=== PATIENT | male | born 1970 | race Caucasian/White ===

== ENCOUNTER 2018-03-07 10:28 | Observation (INO) ==
[2018-03-07] MEDS ORDERED: SALINE FLUSH 10ml SYRINGE IVF PRN (10:51)
--- NOTE | 2018-03-07 10:53 | Emergency Department Report ---
General Adult HPI - General Chief complaint: Shortness of Breath/Dyspnea Stated complaint: soa chest pain Time Seen by Provider: 03/07/18 10:51 Source: patient, other (continuous pillowcase cutter) Mode of arrival: ambulatory - History of Present Illness HPI narrative: Patient is a 47-year-old male presents emergency primary for evaluation of chest pain. Patient very poor historian history of schizophrenia, is here with his per review continuous pillowcase cutter. Patient's had anterior left-sided chest pain/ pressure with associated diaphoresis no nausea no vomiting since Sunday. Patient has had an intermittent episode of spasms of his chest wall, has seen his primary care doctors at his last week, was given muscle relaxants. Patient complaining today to his continuous pillowcase cutter of the chest pain so patient was brought to the ER for evaluation. - Related Data Home Medications Medication Instructions Recorded Confirmed Baclofen [Lioresal] 10 mg PO BID PRN 03/07/18 03/07/18 Benztropine [Cogentin] 1 mg PO DAILY 03/07/18 03/07/18 Metoprolol Succinate (XL) [Toprol 50 mg PO DAILY 03/07/18 03/07/18 Xl] Omeprazole [Prilosec] 20 mg PO BID 03/07/18 03/07/18 risperiDONE [Risperidone] 1 mg PO BID 03/07/18 03/07/18 Previous Rx's Medication Instructions Recorded Amlodipine Besylate [Norvasc] 5 mg PO DAILY 30 Days #30 tab 01/04/17 Allergies Allergy/AdvReac Type Severity Reaction Status Date / Time No Known Drug Allergies Allergy Unknown Verified 03/07/18 10:58 Review of Systems Review of Systems: Patient's schizophrenic, very poor historian Constitutional: Denies: fever, chills, weakness Eyes: Denies: eye pain ENT: Denies: throat pain Cardiovascular: Reports: chest pain, palpitations. Denies: dyspnea on exertion Respiratory: Denies: cough, dyspnea, wheezes Gastrointestinal: Denies: abdominal pain, nausea, vomiting Neurological: Denies: headache Psychiatric: Denies: anxiety Endocrine: Denies: fatigue Hematological/Lymphatic: Denies: easy bleeding PFSH Patient Stated Medical History Schizophrenia Yes - Social History Smoking status: Never smoker Substance use type: does not use Alcohol intake frequency: does not drink Physical Exam - General General appearance: alert, in no apparent distress - Eye Eye exam: Present: PERRL - ENT ENT exam: Present: normal oropharynx, TM's normal bilaterally - Neck Neck exam: Present: full ROM, trachea midline. Absent: tenderness - Chest Chest inspection: Present: normal inspection. Absent: symmetric chest wall rise , tenderness, rash - Respiratory Respiratory exam: Present: normal lung sounds bilaterally. Absent: respiratory distress, wheezes, stridor - Cardiovascular Cardiovascular exam: Present: regular rate, normal rhythm, normal heart sounds - Abdominal Exam Abdominal exam: Present: soft, normal bowel sounds. Absent: distention, tenderness - Skin Skin exam: Present: warm, dry - Neurological Exam Neurological exam: Present: alert, oriented X3 - Psychiatric Psychiatric exam: Present: normal affect, normal mood Course Vital Signs Temperature 98.6 F 03/07/18 10:30 Pulse Rate 92 03/07/18 10:30 Respiratory Rate 32 H 03/07/18 10:30 Blood Pressure 138/76 03/07/18 10:30 Pulse Oximetry 95 03/07/18 10:30 Temperature 98.5 F 03/07/18 13:03 Pulse Rate 82 03/07/18 13:03 Respiratory Rate 16 03/07/18 13:03 Blood Pressure 123/67 03/07/18 13:03 Pulse Oximetry 96 03/07/18 13:38 Medical Decision Making - Medical Records Medical records reviewed: Yes: I reviewed the patient's medical records. - Lab Data Lab results reviewed: Yes: I reviewed the patient's lab results. Result diagrams: 03/07/18 11:04 03/07/18 11:04 Lab Results 03/07/18 03/07/18 03/07/18 Range/Units 11:04 11:04 11:04 WBC 7.0 (4.5-11.0) T/MM3 RBC 4.28 L (4.50-5.90) M/MM3 Hgb 13.2 L (13.5-17.5) GM/DL Hct 39.4 L (41-53) % MCV 92.1 (80-100) UM3 MCH 30.8 (26-34) UUG MCHC 33.5 (31-37) GM/DL RDW Std Deviation 43.9 (36.9-50.2) FL Plt Count 121 L (130-400) T/MM3 MPV 9.9 (9.4-12.4) UM3 Immature Gran % (Auto) 0.3 (0.0-0.5) % Neut % (Auto) 74.0 H (33-66) % Lymph % (Auto) 14.7 L (23-45) % [place] % (Auto) 8.5 (0-9.0) % Eos % (Auto) 2.2 (0-4) % Baso % (Auto) 0.3 (0-2) % Neut # (Auto) 5.2 (1.8-7.7) T/MM3 Lymph # (Auto) 1.0 (1-4.8) T/MM3 [place] # (Auto) 0.6 (0-0.8) T/MM3 Eos # (Auto) 0.2 (0-0.5) T/MM3 Baso # (Auto) 0.0 (0-0.2) T/MM3 Abs Immat Gran (auto) 0.02 (0.00-0.03) T/MM3 D-Dimer 3595 H (0-230) NG/ML Turbidity < 20 (0-20) Sodium 144 (134-144) MEQ/L Potassium 3.5 L (3.6-5) MEQ/L Chloride 107 (98-107) MEQ/L Carbon Dioxide 25 (22-30) MEQ/L Anion Gap 12 (5-15) meq/L BUN 7.0 L (9-20) MG/DL Creatinine 0.8 (0.8-1.5) mg/dL GFR Calculation 105 BUN/Creatinine Ratio 9 (6-26) RATIO Glucose 170 H (75-110) MG/DL Calculated Osmolality 279 (261-280) MOSM/KG Calcium 8.6 (8.4-10.2) MG/DL Total Bilirubin 1.00 (0.20-1.30) MG/DL Icterus Index < 2 (0-7) AST 29 (17-59) U/L ALT 32 (1-50) U/L Alkaline Phosphatase 63 (38-126) U/L Troponin I < 0.012 (0-0.12) ng/ml NT-Pro-B Natriuret Pep 152 (0-175) pg/mL Total Protein 7.2 (6.3-8.2) g/dL Albumin 4.1 (3.5-5.0) g/dL Globulin 3.1 (2.4-3.6) G/DL Albumin/Globulin Ratio 1.3 (1.1-2.2) RATIO Specimen Hemolysis < 15 (0-25) - Radiology Data Radiology results reviewed: Yes: I reviewed the patient's radiology results. Chest x-ray: No acute cardiopulmonary findings CTA chest: Multiple bilateral pulmonary embolus - EKG Data EKG #1 EKG attestation: Yes: I reviewed and interpreted this EKG. EKG shows normal: sinus rhythm Rate: normal Rhythm: NSR [place]/QRS: normal Interpretation: no acute changes Disposition Clinical Impression: Multiple Pulmonary Emboli Disposition: 02 To [facility] Condition: Stable - Seen By: physician
[2018-03-07] MEDS ORDERED: KETOROLAC 30 MG/ML INJECTION IVP ONE (10:55)
--- OUTSIDE RECORDS SUMMARY | 2018-03-07 11:03 | External Medical Summary | Referral Summary ---
:1970 Author Organization [facility] [place] [place] [address] Care Team Providers Name Role Phone Erich Chester Primary Care Physician Encounter VC Date(s): 05/19/15 - 05/19/15 [facility] [place] [place] [phone] Discharge Diagnosis: Anemia, macrocytic Discharge Diagnosis: Pancytopenia Discharge Diagnosis: Unintentional weight loss Discharge Diagnosis: Esophageal dysphagia Discharge Disposition: -Home or Self Care Attending Physician: Erich Chester DO Admitting Physician: Erich Chester DO Vital Signs Most recent to oldest [Reference Range]: 1 Temperature Tympanic [36.6-38.1 degC] 36.9 degC (05/19/15 9:03 AM) Peripheral Pulse Rate [60-100 bpm] 99 bpm (05/19/15 9:03 AM) Blood Pressure [90-140/60-90 mmHg] 120/64 mmHg (05/19/15 9:03 AM) SpO2 99 % (05/19/15 9:03 AM) Problem List Condition Effective Dates Status Health Status Informant At risk of pressure sore(Confirmed) Active Cataracts(Confirmed) 1993 Active Angina/Chest pain(Confirmed) 2007 Active Fluid imbalance(Confirmed)1 Active Headaches - Migraine(Confirmed) 2007 Active Obesity(Confirmed) Active patient 1Problem added automatically by system based on initiation of Fluid Volume Imbalance Plan of Care Allergies, Adverse Reactions, Alerts No Known Medication Allergies Medications cyanocobalamin 1000 mcg/mL injectable solution 1,000 mcg, SubCutaneous, q24hr, # 2 amp, 0 Refill(s), Pharmacy: [facility], 1,000 mcg SubCutaneous q24hr,x2 doses Start Date: 05/24/15 Stop Date: 05/26/15 Status: Orderedfolic acid 1 mg oral tablet 1 mg 1 tabs, Oral, Daily, 0 Refill(s) Start Date: 05/21/15 Status: Orderedomeprazole 20 mg oral delayed release tablet 20 mg 1 tabs, Oral, BID, # 60 tabs, 6 Refill(s), Pharmacy: [facility], 1 tabs Oral BID,x30 days Start Date: 10/15/15 Stop Date: 05/12/16 Status: OrderedOTC Melatonin OTC Melatonin, See Instructions, PRN Sleep, take 2 tablets oral at bedtime, 0 Refill(s) Start Date: 05/19/15 Status: OrderedrisperiDONE 1 mg oral tablet See Instructions, TAKE ONE TABLET BY MOUTH ONCE DAILY AT BEDTIME, # 30 tabs, eRx : [facility], TAKE ONE TABLET BY MOUTH ONCE DAILY AT BEDTIME Start Date: 08/06/15 Status: OrderedtraZODone 50 mg oral tablet 50 mg 1 tabs, Oral, Bedtime (once a day), 0 Refill(s) Start Date: 12/14/14 Status: OrderedVisine 1 drops, Eye-Right, Daily, 0 Refill(s) Start Date: 05/19/15 Status: OrderedVitamin B12 1,000 mcg 1 mL, SubCutaneous, qMonth, 0 Refill(s) Start Date: 05/21/15 Status: Ordered Results No data available for this section Immunizations Vaccine Date Refusal Reason influenza virus vaccine, inactivated 08/25/15 influenza virus vaccine, inactivated1 08/28/14 influenza virus vaccine, live 07/15/13 influenza virus vaccine, live 10/07/12 1Result Comment: [08/28/2014] see scanned document Procedures Procedure Date Related Diagnosis Body Site Eye surgery 1996 Social History Social History Type Response Smoking Status Never smoker Assessment and Plan Extracted from: Title: Office Visit Note Author: Erich Chester DO Date: 05/19/15 Assessment/Plan Anemia, macrocytic 1. Given his anemia andsignificant fatigue, this patient is needing transfusion and further workup for this presentation. 2. Patient was discussed with the hospitalist Addis Soler who agreed to admit the patient and assume care once he got to the hospital. Ordered: Office Visit Level 4 Est 03239 Esophageal dysphagia 1. This will need further evaluation with upper GI study and possible imaging of the chest and abdomen. Hopefully this can be done during his current admission. Ordered: Office Visit Level 4 Est 94409 Pancytopenia 1. Will need farther evaluation. Ordered: Office Visit Level 4 Est 10246 Unintentional weight loss 1. Given his anemia, decreased appetite, fatigue in addition to his unintentional weight loss he most likely needs GI/surgical consult for evaluation of both upper and lowe r GI study. My hope is that this can be done at this admission to get a better picture as to the cause of his anemia. Ordered: Office Visit Level 4 Est 92132 Orders: omeprazole, 20 mg 1 tabs, Oral, Daily, # 30 tabs, 2 Refill(s), Pharmacy: [facility], 1 tabs Oral Daily
--- OUTSIDE RECORDS SUMMARY | 2018-03-07 11:03 | External Medical Summary | Referral Summary ---
:1970 Author Organization [facility] [place] [place] [address] Care Team Providers Name Role Phone Erich Chester Primary Care Physician Encounter VC Date(s): 05/09/17 - 05/09/17 [facility] [place] [place] [phone] [place] Discharge Diagnosis: Fracture of fifth metatarsal bone Discharge Diagnosis: Left foot pain Discharge Disposition: 01-Home or Self Care Attending Physician: Erich Chester DO Admitting Physician: Erich Chester DO Vital Signs Most recent to oldest [Reference Range]: 1 Temperature Tympanic [36.6-38.1 degC] 36.7 degC (05/09/17 1:16 PM) Peripheral Pulse Rate [60-100 bpm] 77 bpm (05/09/17 1:16 PM) Respiratory Rate [14-20 br/min] 18 br/min (05/09/17 1:16 PM) Blood Pressure [90-140/60-90 mmHg] 102/60 mmHg (05/09/17 1:16 PM) SpO2 96 % (05/09/17 1:16 PM) Problem List Condition Effective Dates Status Health Status Informant At risk of pressure sore(Confirmed) Active Cataracts(Confirmed) 1993 Active Angina/Chest pain(Confirmed) 2007 Active Fluid imbalance(Confirmed)1 Active Headaches - Migraine(Confirmed) 2007 Active Obesity(Confirmed) Active patient 1Problem added automatically by system based on initiation of Fluid Volume Imbalance Plan of Care Allergies, Adverse Reactions, Alerts No Known Medication Allergies Medications benztropine 1 mg oral tablet 1 mg 1 tabs, Oral, BID, 0 Refill(s) Start Date: 03/05/17 Status: Orderedfolic acid 1 mg oral tablet 1 mg 1 tabs, Oral, Daily, # 30 tabs, 6 Refill(s), Pharmacy: [facility], 1 tabs Oral Daily,x30 days Start Date: 09/11/16 Stop Date: 04/09/17 Status: Orderedibuprofen 800 mg oral tablet 800 mg 1 tabs, Oral, BID, as needed for pain, X 30 days, # 60 tabs, 0 Refill(s) , Pharmacy: [facility], 1 tabs Oral BID,x30 days,PRN:as needed for pain Start Date: 05/09/17 Stop Date: 06/08/17 Status: Orderedmetoprolol succinate 25 mg oral tablet, extended release mg tabs, Oral, Daily, 0 Refill(s) Start Date: 01/23/17 Status: OrderedNorvasc 5 mg oral tablet 5 mg 1 tabs, Oral, Daily, # 30 tabs, 3 Refill(s), Pharmacy: [facility], 1 tabs Oral Daily Start Date: 04/05/17 Status: Orderedomeprazole 20 mg oral delayed release capsule 20 mg 1 caps, Oral, BID, # 60 caps, 11 Refill(s), Pharmacy: [place] [facility] [id number], 1 caps Oral BID,x30 days Start Date: 10/11/16 Stop Date: 10/06/17 Status: Orderedomeprazole 20 mg oral delayed release capsule See Instructions, TAKE ONE CAPSULE BY MOUTH ONCE DAILY, # 30 caps, eRx: [facility], TAKEONE CAPSULE BY MOUTH ONCE DAILY Start Date: 03/06/17 Status: OrderedOTC Melatonin OTC Melatonin, See Instructions, PRN Sleep, take 2 tablets oral at bedtime, 0 Refill(s) Start Date: 05/19/15 Status: OrderedrisperiDONE 0 Refill(s) Start Date: 01/23/17 Status: OrderedToprol-XL 50 mg oral tablet, extended release 50 mg 1 tabs, Oral, Daily, # 30 tabs, 3 Refill(s), Pharmacy: [facility] Start Date: 04/05/17 Status: OrderedtraZODone Oral, 0 Refill(s) Start Date: 01/23/17 Status: OrderedVisine 1 drops, Eye-Right, Daily, 0 Refill(s) Start Date: 05/19/15 Status: OrderedVitamin B12 1,000 mcg, 0 Refill(s) Start Date: 01/23/17 Status: Ordered Results No data available for this section Immunizations Given and Recorded Vaccine Date Status Refusal Reason tetanus/diphth/pertuss (Tdap) adult/adol 12/07/15 Given influenza virus vaccine, inactivated 09/11/16 Given influenza virus vaccine, inactivated 08/25/15 Given influenza virus vaccine, inactivated1 08/28/14 Recorded influenza virus vaccine, live 07/15/13 Given influenza virus vaccine, live 10/07/12 Given pneumococcal 13-valent conjugate vaccine 12/07/15 Given 1Result Comment: [08/28/2014] see scanned document Procedures Procedure Date Related Diagnosis Body Site COLORECTAL CANCER SCREENING; COLONOSCOPY ON 12/21/16 INDIVIDUAL NOT MEETING CRITERIA FOR HIGH RISK1 Esophagogastroduodenoscopy - SN2 02/16/16 Procedure with Anesthesia3 02/16/16 Eye surgery 1996 1Colonoscopy done during hospitalization for urosepsis and massively dilated colon. Biopsies indicated acute inflammation and necrosis, possible ischemic colitis versus Clostridium difficile. Clostridium difficile testing found to be negative. Repeat colonoscopy in 10 years or sooner if concerns [id number] from documented surgical [id number] from documented surgical case Social History Social History Type Response Smoking Status Never smoker Assessment and Plan Extracted from: Title: Office Visit Note Author: Erich Chester DO Date: 05/09/17 Assessment/Plan 1.Fracture of fifth metatarsal bone 1. Imaging of the 5th metatarsal was for a nondisplaced mid shaft fracture. 2. [place]-shoe was fitted and he had improvement in his pain. 3. Ibuprofen 800mg bid for 2-4 weeks. Ordered: ibuprofen, 800 mg 1 tabs, Oral, BID, as needed for pain, X 30 days, # 60 tabs, 0 Refill(s), [facility], 1 tabs Oral BID,x30 days, PRN:as needed for pain Left foot pain As above. Ordered: Office Visit Level 4 Est 69244 XR Foot Complete Left
--- OUTSIDE RECORDS SUMMARY | 2018-03-07 11:03 | External Medical Summary | Referral Summary ---
:1970 Author Organization [facility] [place] [place] [address] Care Team Providers Name Role Phone Erich Chester Primary Care Physician Encounter VC Date(s): 06/25/15 - 06/25/15 [facility] [place] [place] [phone] Discharge Diagnosis: B12 vitamin deficiency Discharge Disposition: 01-Home or Self Care Attending Physician: Erich Chester DO Admitting Physician: Erich Chester DO Vital Signs No data available for this section Problem List Condition Effective Dates Status Health [...] q24hr, # 2 amp, 0 Refill(s), Pharmacy: [facility], 1,000 mcg SubCutaneous q24hr,x2 doses Start Date: 05/24/15 Stop Date: 05/26/15 Status: Orderedfolic acid 1 mg oral tablet 1 mg 1 tabs, Oral, Daily, 0 Refill(s) Start Date: 05/21/15 Status: Orderedomeprazole 20 mg oral delayed release tablet 20 mg 1 tabs, Oral, BID, # 60 tabs, 6 Refill(s), Pharmacy: [facility], 1 tabs Oral BID,x30 days Start Date: 10/15/15 Stop Date: 05/12/16 Status: OrderedOTC Melatonin OTC Melatonin, See Instructions, PRN Sleep, take 2 tablets oral at bedtime, 0 Refill(s) Start Date: 05/19/15 Status: OrderedrisperiDONE 1 mg oral tablet See Instructions, TAKE ONE TABLET BY MOUTH ONCE DAILY AT BEDTIME, # 30 tabs, eRx : [facility], TAKE ONE TABLET BY [...] this section Immunizations Vaccine Date Refusal Reason tetanus/diphth/pertuss (Tdap) adult/adol 12/07/15 influenza virus vaccine, inactivated 08/25/15 influenza virus vaccine, inactivated1 08/28/14 influenza virus vaccine, live 07/15/13 influenza virus vaccine, live 10/07/12 pneumococcal 13-valent conjugate vaccine 12/07/15 1Result Comment: [08/28/2014] see scanned document Procedures Procedure Date Related Diagnosis Body Site Eye surgery 1996 Social History Social History Type Response Smoking Status Never smoker Assessment and Plan No data available for this section
--- OUTSIDE RECORDS SUMMARY | 2018-03-07 11:03 | External Medical Summary | Referral Summary ---
:1970 Author Organization [facility] [place] [place] [address] Care Team Providers Name Role Phone Erich Chester Primary Care Physician Encounter VC Date(s): 06/11/15 - 06/11/15 [facility] [place] [place] [phone] [place] Discharge Diagnosis: Vitamin B 12 defiency Discharge Disposition: 01-Home or Self Care Attending [...] q24hr, # 2 amp, 0 Refill(s), Pharmacy: [facility], 1,000 mcg SubCutaneous q24hr,x2 doses Start Date: 05/24/15 Stop Date: 05/26/15 Status: Orderedfolic acid 1 mg oral tablet 1 mg 1 tabs, Oral, Daily, 0 Refill(s) Start Date: 05/21/15 Status: Orderedomeprazole 20 mg oral delayed release tablet 20 mg 1 tabs, Oral, BID, # 60 tabs, 6 Refill(s), Pharmacy: [facility], 1 tabs Oral BID,x30 days Start Date: 10/15/15 Stop Date: 05/12/16 Status: OrderedOTC Melatonin OTC Melatonin, See Instructions, PRN Sleep, take 2 tablets oral at bedtime, 0 Refill(s) Start Date: 05/19/15 Status: OrderedrisperiDONE 1 mg oral tablet See Instructions, TAKE ONE TABLET BY MOUTH ONCE DAILY AT BEDTIME, # 30 tabs, eRx : [facility], TAKE ONE TABLET BY MOUTH [...]
--- OUTSIDE RECORDS SUMMARY | 2018-03-07 11:03 | External Medical Summary | Referral Summary ---
:1970 Author Organization [facility] Address [address] [place] [address] Care Team Providers Name Role Phone Erich Chester Primary Care Physician Encounter VC Date(s): 07/01/15 - 07/01/15 [facility] [address] [place] [address] [place] Discharge Diagnosis: Dysphagia Discharge Disposition: 01-Home or Self Care Attending Physician: Lelo Garcia MD Admitting Physician: Lelo Garcia MD Referring Physician: Erich Chester DO Vital Signs Most recent to oldest [Reference Range]: 1 Peripheral Pulse Rate [60-100 bpm] 96 bpm (07/01/15 2:41 PM) Blood Pressure [90-140/60-90 mmHg] 118/76 mmHg (07/01/15 2:41 PM) Problem List Condition Effective Dates Status [...] Medications cyanocobalamin 1000 mcg/mL injectable solution 1,000 mcg 1 mL, IntraMuscular, qMonth, # 13 mL, 0 Refill(s) Start Date: 01/05/16 Stop Date: 01/04/17 Status: Orderedcyanocobalamin 1000 mcg/mL injectable solution 1,000 mcg, SubCutaneous, q24hr, # 2 amp, 0 Refill(s), Pharmacy: [facility], 1,000 mcg SubCutaneous q24hr,x2 doses Start Date: 05/24/15 Stop Date: 05/26/15 Status: Orderedfolic acid 1 mg oral tablet 1 mg 1 tabs, Oral, Daily, 0 Refill(s) Start Date: 05/21/15 Status: Orderedomeprazole 20 mg oral delayed release tablet 20 mg 1 tabs, Oral, BID, # 60 tabs, 6 Refill(s), Pharmacy: [facility], 1 tabs Oral BID,x30 days Start Date: 10/15/15 Stop Date: 05/12/16 Status: OrderedOTC Melatonin OTC Melatonin, See Instructions, PRN Sleep, take 2 tablets oral at bedtime, 0 Refill(s) Start Date: 05/19/15 Status: OrderedrisperiDONE 1 mg oral tablet See Instructions, TAKE ONE TABLET BY MOUTH ONCE DAILY AT BEDTIME, # 30 tabs, eRx : [facility], TAKE ONE TABLET BY MOUTH [...] smoker Assessment and Plan Extracted from: Title: Ambulatory Patient Education Author: Lelo Garcia MD Date: 07/01 Allergy Dysphagia Swallowing problems (dysphagia) occur when solids and liquids seem to stick in your throat on the way down to your stomach, or the food takes longer to get to the stomach. Other symptoms include regurgi tating food, noises coming from the throat, chest discomfort with swallowing, and a feeling of fullness or the feeling of something being stuck in your throat when swallowing. When blockage in your thro at is complete it may be associated with drooling. CAUSES Problems with swallowing may occur because of problems with the muscles. The food cannot be propelled in the usual manner into your stomach. You may have ulcers, scar tissue, or inflammation in the tube down which food travels from your mouth to your stomach (esophagus), which blocks food from passing normally into the stomach. Causes of inflammation include: Acid reflux from your stomach into your esophagus. Infection. Radiation treatment for cancer. Medicines taken without enough fluids to wash them down into your stomach. You may have nerve problems that prevent signals from being sent to the muscles of your esophagus to contract and move your food down to your stomach. Globus pharyngeus is a relatively common problem in which there is a sense of an obstruction or difficulty in swallowing, without any physical abnormalities of the swallowing passages being found. This problem usually improves over time with reassurance and testing to rule out other causes. DIAGNOSIS Dysphagia can be diagnosed and its cause can be determined by tests in which you swallow a white substance that helps illuminate the inside of your throat ( contrast medium) while X-rays are taken. Somet imes a flexible telescope that is inserted down your throat (endoscopy) to look at your esophagus and stomach is used. TREATMENT If the dysphagia is caused by acid reflux or infection, medicines may be used. If the dysphagia is caused by problems with your swallowing muscles, swallowing therapy may be used to help you strengthen your swallowing muscles. If the dysphagia is caused by a blockage or mass, procedures to remove the blockage may be done. HOME CARE INSTRUCTIONS Try to eat soft food that is easier to swallow and check your weight on a daily basis to be sure that it is not decreasing. Be sure to drink liquids when sitting upright (not lying down). SEEK MEDICAL CARE IF: You are losing weight because you are unable to swallow. You are coughing when you drink liquids (aspiration). You are coughing up partially digested food. SEEK IMMEDIATE MEDICAL CARE IF: You are unable to swallow your own saliva . You are having shortness of breath or a fever, or both. You have a hoarse voice along with difficulty swallowing. MAKE SURE YOU: Understand these instructions. Will watch your condition. Will get help right away if you are not doing well or get worse. Document Released: 10/12/2001 Document Revised: 06/17/2014 Document Reviewed: 04/03/2014 [employer] Patient Information 2015 [employer], [facility]. This information is not intended to replace advice given to you by your health care provider. Make sure you discuss any questions you have with your health care provider. No follow up information was provided.
--- OUTSIDE RECORDS SUMMARY | 2018-03-07 11:03 | External Medical Summary ---
:1970 Author Organization [facility] Address [address], [place] [id number] Care Team Providers Name Role Phone Speedy Alicia Unavailable Unavailable PROBLEMS Unknown Problems ALLERGIES Unknown Allergies SOCIAL HISTORY No smoking Hx information available PLAN OF CARE VITAL SIGNS MEDICATIONS Unknown Medications RESULTS No Results PROCEDURES No Known procedures IMMUNIZATIONS No Known Immunizations
--- OUTSIDE RECORDS SUMMARY | 2018-03-07 11:03 | External Medical Summary | Referral Summary ---
:1970 Author Organization [facility] [place] [address] Care Team Providers Name Role Phone rEich Chester Primary Care Physician Encounter VC Date(s): 05/23/17 - 05/23/17 [facility] [place] [phone] [place] Discharge Diagnosis: Left foot pain Discharge Disposition: 01-Home or Self Care Attending Physician: Erich Chester DO Admitting Physician: Erich hCester DO Vital Signs Most recent to oldest [Reference Range]: 1 Temperature Tympanic [36.6-38.1 degC] 36.2 degC *LOW* (05/23/17 1:25 PM) Peripheral Pulse Rate [60-100 bpm] 73 bpm (05/23/17 1:25 PM) Respiratory Rate [14-20 br/min] 18 br/min (05/23/17 1:25 PM) Blood Pressure [90-140/60-90 mmHg] 126/80 mmHg (05/23/17 1:25 PM) SpO2 96 % (05/23/17 1:25 PM) Problem List Condition Effective Dates Status [...] Daily, # 30 tabs, 6 Refill(s), Pharmacy: [facility], 1 tabs Oral Daily,x30 days Start Date: 09/11/16 Stop Date: 04/09/17 Status: Orderedibuprofen 800 mg oral tablet 800 mg 1 tabs, Oral, BID, as needed for pain, X 30 days, # 60 tabs, 0 Refill(s) , Pharmacy: [facility], 1 tabs Oral BID,x30 days,PRN:as needed for [...] BID, # 60 caps, 11 Refill(s), Pharmacy: [place] [id number], 1 caps Oral BID,x30 days Start Date: 10/11/16 Stop Date: 10/06/17 Status: Orderedomeprazole 20 mg oral delayed release capsule See Instructions, TAKE ONE CAPSULE BY MOUTH ONCE DAILY, # 30 caps, eRx: [facility], TAKEONE CAPSULE BY MOUTH ONCE DAILY Start Date: 03/06/17 Status: OrderedOTC Melatonin OTC Melatonin, See Instructions, PRN Sleep, take 2 tablets oral at bedtime, 0 Refill(s) Start Date: 05/19/15 Status: OrderedrisperiDONE 0 Refill(s) Start Date: 01/23/17 Status: OrderedToprol-XL 50 mg oral tablet, extended release 50 mg 1 tabs, Oral, Daily, # 30 tabs, 3 Refill(s), Pharmacy: [facility] Start Date: 04/05/17 Status: OrderedtraZODone Oral, [...] in 10 years or sooner if concerns [id number] populated from documented surgical [id number] from documented surgical case Social History Social History Type Response Smoking Status Never smoker Assessment and Plan Extracted from: Title: Office Visit Note Author: Erich Chester DO Date: 05/23/17 Assessment/Plan 1.Left foot pain 1. No need for follow up imaging at this time since radiologist did not think he had a fracture. 2. Ok to go back in to his regular shoe 3. Follow up if continued discomfort in 2 weeks. Ordered: Office Visit Level 3 Est 24232
--- OUTSIDE RECORDS SUMMARY | 2018-03-07 11:03 | External Medical Summary | Referral Summary ---
:1970 Author Organization [facility] [place] [address] Care Team Providers Name Role Phone Erich Chester Primary Care Physician Encounter VC Date(s): 09/11/16 - 09/11/16 [facility] [place] [phone] [place] Discharge Diagnosis: Chronic mid back pain Discharge Diagnosis: Chronic GERD Discharge Diagnosis: Anemia, pernicious Discharge Diagnosis: Nerve root irritation Discharge Disposition: 01-Home or Self Care Attending Physician: Erich Chester DO Admitting Physician: Erich Chester DO Vital Signs Most recent to oldest [Reference Range]: 1 Temperature Tympanic [36.6-38.1 degC] 36.5 degC *LOW* (09/11/16 2:21 PM) Peripheral Pulse Rate [60-100 bpm] 92 bpm (09/11/16 2:21 PM) Blood Pressure [90-140/60-90 mmHg] 120/76 mmHg (09/11/16 2:21 PM) SpO2 98 % (09/11/16 2:21 PM) Problem List Condition Effective Dates Status [...] q24hr, # 2 amp, 0 Refill(s), Pharmacy: [facility], 1,000 mcg SubCutaneous q24hr,x2 doses Start Date: 05/24/15 Stop Date: 05/26/15 Status: Orderedfolic acid 1 mg oral tablet 1 mg 1 tabs, Oral, Daily, # 30 tabs, 6 Refill(s), Pharmacy: [facility], 1 tabs Oral Daily,x30 days Start Date: 09/11/16 Stop Date: 04/09/17 Status: Orderednortriptyline 50 mg oral capsule 50 mg 1 caps, Oral, BID, # 60 caps, 0 Refill(s), Pharmacy: [facility], 1 caps Oral BID,x30 days Start Date: 09/11/16 Stop Date: 10/11/16 Status: Orderedomeprazole 20 mg oral delayed release capsule See Instructions, TAKE ONE CAPSULE BY MOUTH TWICE DAILY FOR 30 DAYS, # 60 caps, 2 Refill(s), eRx: [place] [id number], TAKE ONE CAPSULE BY MOUTH TWICE DAILY FOR 30 DAYS Start Date: 07/06/16 Status: OrderedOTC Melatonin OTC Melatonin, See Instructions, PRN Sleep, take 2 tablets oral at bedtime, 0 Refill(s) Start Date: 05/19/15 Status: OrderedrisperiDONE 1 mg oral tablet See Instructions, TAKE ONE TABLET BY MOUTH ONCE DAILY AT BEDTIME, # 30 tabs, eRx : [facility], TAKE ONE TABLET BY MOUTH ONCE DAILY AT BEDTIME Start Date: 08/06/15 Status: OrderedVisine 1 drops, Eye-Right, Daily, 0 Refill(s) Start Date: 05/19/15 Status: OrderedVitamin B12 1,000 mcg 1 mL, SubCutaneous, qMonth, 0 Refill(s) Start Date: 05/21/15 Status: Ordered Results No data available for this section Immunizations Vaccine Date Refusal Reason tetanus/diphth/pertuss (Tdap) adult/adol 12/07/15 influenza virus vaccine, inactivated 09/11/16 influenza virus vaccine, inactivated 08/25/15 influenza virus vaccine, inactivated1 08/28/14 influenza virus vaccine, live 07/15/13 influenza virus vaccine, live 10/07/12 pneumococcal 13-valent conjugate vaccine 12/07/15 1Result Comment: [08/28/2014] see scanned document Procedures Procedure Date Related Diagnosis Body Site Esophagogastroduodenoscopy - SN1 02/16/16 Procedure with Anesthesia2 02/16/16 Eye surgery 1996 1auto-populated from documented surgical [id number] from documented surgical case Social History Social History Type Response Smoking Status Never smoker Assessment and Plan Extracted from: Title: Office Visit Note Author: Erich Chester DO Date: 09/11/16 Assessment/Plan Anemia, pernicious 1. Continue with daily folic acid replacement. 2. Repeat CBC in 3 months Chronic GERD 1. Continue with daily Omeprazole 2. Consider diet modification. 3. Follow up if worsening. Chronic mid back pain 1. This is likely muscular in nature 2. Stretching exercises. 3. Heat compression to the involved area 4. If getting worse then we may need to send him back to Dr Jacob Need for influenza vaccination 1. Flu shot given today. Nerve root irritation 1. Stop Trazodone. 2. Nortriptyline 50 mg bid. 3. Follow up in a month for reevaluation. Ordered: Office Visit Level 4 Est 75912
--- OUTSIDE RECORDS SUMMARY | 2018-03-07 11:03 | External Medical Summary ---
:1970 Author Organization [employer] Care Team Providers Name Role Phone Speedy Alicia Provider Role Unavailable Allergies, Adverse Reactions, Alerts Substance Reaction Event Type N.K.D.A. Info Not Available Non Drug Allergy Problems Problem Type Condition Code Onset Dates Condition Status Assessment Encounter for dental examination and Z01.20 Active cleaning without abnormal findings Medications Medication Code System Code Instructions Start Date End Date Status Dosage Folic Acid [facility] [address]602-461 not defined 4-10 Omeprazole [facility] [address]-885 not defined 0-03 Trazodone HCl [facility] 11583-893 not defined 4-01 Risperidone [facility] 77290-836 not defined 2-52 Vitamin B-12 [facility] 49962-449 not defined 93 Procedures Procedure Coding System Code Date PROPHYLAXIS - ADULT CPT-4 D1110 Oct 05, 2016 PERIODIC ORAL EXAMINATION CPT-4 D0120 Oct 05, 2016 Results No Known Results Summary Purpose [employer] Sub[employer]
--- OUTSIDE RECORDS SUMMARY | 2018-03-07 11:04 | External Medical Summary | Referral Summary ---
:1970 Author Organization [facility] [place] [address] Care Team Providers Name Role Phone Erich Chester Primary Care Physician Encounter VC Date(s): 07/26/15 - 07/26/15 [facility] [place] [phone] [place] Discharge Disposition: 01-Home or Self Care Attending [...] q24hr, # 2 amp, 0 Refill(s), Pharmacy: [facility], 1,000 mcg SubCutaneous q24hr,x2 doses Start Date: 05/24/15 Stop Date: 05/26/15 Status: Orderedfolic acid 1 mg oral tablet 1 mg 1 tabs, Oral, Daily, 0 Refill(s) Start Date: 05/21/15 Status: Orderedibuprofen 800 mg oral tablet 1 tabs, Oral, TID, as needed for pain, # 90 tabs, 0 Refill(s), Pharmacy: [facility], 1 tabs Oral TID,PRN:as needed for pain Start Date: 11/03/14 Status: Orderedomeprazole 20 mg oral delayed release tablet 20 mg 1 tabs, Oral, Daily, # 30 tabs, 2 Refill(s), Pharmacy: [facility], 1 tabs Oral Daily Start Date: 05/18/15 Status: OrderedOTC Melatonin OTC Melatonin, See Instructions, PRN Sleep, take 2 tablets oral at bedtime, 0 Refill(s) Start Date: 05/19/15 Status: OrderedRisperDAL 1 mg oral tablet 1 tabs, Oral, Bedtime (once a day), # 30 tabs, 1 Refill(s), Pharmacy: [facility], 1 tabsOral Bedtime (once a day) Start Date: 08/31/14 Status: OrderedtraZODone 50 mg oral tablet 50 mg 1 tabs, Oral, Bedtime (once a day), 0 Refill(s) Start Date: 12/14/14 Status: OrderedVisine 1 drops, Eye-Right, Daily, 0 Refill(s) Start Date: 05/19/15 Status: OrderedVitamin B12 1,000 mcg 1 mL, SubCutaneous, qMonth, 0 Refill(s) Start Date: 05/21/15 Status: Ordered Results No data available for this section Immunizations Vaccine Date Refusal Reason influenza virus vaccine, inactivated1 08/28/14 influenza virus vaccine, live 07/15/13 influenza virus vaccine, live 10/07/12 1Result Comment: [08/28/2014] see scanned document Procedures Procedure Date Related Diagnosis Body Site Eye surgery 1996 Social History Social History Type Response Smoking Status Never smoker Assessment and Plan No data available for this section
--- OUTSIDE RECORDS SUMMARY | 2018-03-07 11:04 | External Medical Summary | Referral Summary ---
:1970 Author Organization [facility] [place] [address] Care Team Providers Name Role Phone Erich Chester Primary Care Physician Encounter VC Date(s): 06/04/15 - 06/04/15 [facility] [place] [phone]- Discharge Diagnosis: Dysphagia Discharge Diagnosis: B12 vitamin deficiency Discharge Diagnosis: Cramps, muscle, general Discharge Diagnosis: Anemia, megaloblastic Discharge Diagnosis: Skin lesion of face Discharge Disposition: 01-Home or Self Care Attending Physician: Erich Chester DO Admitting Physician: Erich Chester DO Vital Signs Most recent to oldest [Reference Range]: 1 Temperature Tympanic [36.6-38.1 degC] 36 degC *LOW* (06/04/15 8:32 AM) Peripheral Pulse Rate [60-100 bpm] 65 bpm (06/04/15 8:32 AM) Blood Pressure [90-140/60-90 mmHg] 116/70 mmHg (06/04/15 8:32 AM) Problem List Condition Effective Dates Status [...] q24hr, # 2 amp, 0 Refill(s), Pharmacy: [facility], 1,000 mcg SubCutaneous q24hr,x2 doses Start Date: 05/24/15 Stop Date: 05/26/15 Status: Orderedfolic acid 1 mg oral tablet 1 mg 1 tabs, Oral, Daily, 0 Refill(s) Start Date: 05/21/15 Status: Orderedomeprazole 20 mg oral delayed release tablet 20 mg 1 tabs, Oral, BID, # 60 tabs, 6 Refill(s), Pharmacy: [facility], 1 tabs Oral BID,x30 days Start Date: 10/15/15 Stop Date: 05/12/16 Status: OrderedOTC Melatonin OTC Melatonin, See Instructions, PRN Sleep, take 2 tablets oral at bedtime, 0 Refill(s) Start Date: 05/19/15 Status: OrderedrisperiDONE 1 mg oral tablet See Instructions, TAKE ONE TABLET BY MOUTH ONCE DAILY AT BEDTIME, # 30 tabs, eRx : [facility], TAKE ONE TABLET BY MOUTH ONCE DAILY AT BEDTIME Start Date: 08/06/15 Status: OrderedtraZODone 50 mg oral tablet 50 mg 1 tabs, Oral, Bedtime (once a day), 0 Refill(s) Start Date: 12/14/14 Status: OrderedVisine 1 drops, Eye-Right, Daily, 0 Refill(s) Start Date: 05/19/15 Status: OrderedVitamin B12 1,000 mcg 1 mL, SubCutaneous, qMonth, 0 Refill(s) Start Date: 05/21/15 Status: Ordered Results Hematology Most recent to oldest [Reference Range]: 1 WBC [5.0-10.0 10*3/uL] 5.3 10*3/uL (06/04/15 9:20 AM) RBC [3.70-5.20 10*6/uL] 3.20 10*6/uL *LOW* (06/04/15 9:20 AM) Hgb [12.0-16.0 gm/dL] 10.9 gm/dL *LOW* (06/04/15 9:20 AM) Hct [40.0-54.0 %] 33.6 % *LOW* (06/04/15 9:20 AM) MCV [80.0-96.0 fL] 105.0 fL *HI* (06/04/15 9:20 AM) MCH [26.0-34.0 pg] 34.1 pg *HI* (06/04/15 9:20 AM) MCHC [32.0-36.0 gm/dL] 32.4 gm/dL (06/04/15:20 AM) RDW [0.0-14.5 %] 13.8 % (06/04/15:20 AM) Platelet [150-400 10*3/uL] 313 10*3/uL (06/04/15:20 AM) MPV [8.8-14.8 fL] 9.2 fL (06/04/15: AM) Neutrophils [50-70 %] 63 % (06/04/15:20 AM) Lymphocytes [20-40 %] 23 % (06/04/15:20 AM) Monocytes [4-8 %] 10 % *HI* (06/04/15: AM) Eosinophils [0-6 %] 4 % (06/04/15:20 AM) Basophils [0-2 %] 1 % (06/04/15:20 AM) Neutro Absolute [2.50-7.00 10*3] 3.31 10*3 (06/04/15 9:20 AM) Lymph Absolute [1.00-4.00 10*3] 1.19 10*3 (06/04/15 9:20 AM) Harper Absolute [0.20-0.80 10*3] 0.50 10*3 (06/04/15 9:20 AM) Eos Absolute [0.00-0.60 10*3] 0.22 10*3 (06/04/15 9:20 AM) Baso Absolute [0.00-0.30 10*3] 0.04 10*3 (06/04/15:20 AM) Chemistry Most recent to oldest [Reference Range]: 1 Sodium Lvl [135-144 mEq/L] 137 mEq/L (06/04/15:20 AM) Potassium Lvl [3.5-5.2 mEq/L] 4.6 mEq/L (06/04/15:20 AM) Chloride [99-111 mEq/L] 104 mEq/L (06/04/15 9:20 AM) CO2 [23-31 mEq/L] 25 mEq/L (06/04/15:20 AM) AGAP [3-20] 8 (8/7/15 9:20 AM) BUN [9-21 mg/dL] 5 mg/dL *LOW* (06/04/15 9:20 AM) Glucose Lvl [70-99 mg/dL] 101 mg/dL *HI* (06/04/15 9:20 AM) Creatinine Lvl [0.72-1.25 mg/dL] 1.27 mg/dL *HI* (06/04/15 9:20 AM) eGFR [>60 mL/min] >60 mL/min 1 (06/04/15 9:20 AM) Calcium Lvl [8.9-10.5 mg/dL] 9.4 mg/dL (06/04/15 9:20 AM) Albumin Lvl [3.5-5.0 gm/dL] 4.0 gm/dL (06/04/15 9:20 AM) Total Protein [6.4-8.3 gm/dL] 6.8 gm/dL (06/04/15 9:20 AM) Globulin [1.8-4.0 gm/dL] 2.8 gm/dL (06/04/15 9:20 AM) ALT [0-55 U/L] 29 U/L (06/04/15 9:20 AM) AST [5-34 U/L] 21 U/L (06/04/15 9:20 AM) Alk Phos [40-150 U/L] 47 U/L (06/04/15 9:20 AM) Bili Total [0.2-1.2 mg/dL] 1.1 mg/dL (06/04/15 9:20 AM) 1Result Comment: Multiply eGFR results by 1.21 for race. Immunizations Vaccine Date Refusal Reason tetanus/diphth/pertuss (Tdap) adult/adol 12/07/15 influenza virus vaccine, inactivated 08/25/15 influenza virus vaccine, inactivated1 08/28/14 influenza virus vaccine, live 07/15/13 influenza virus vaccine, live 10/07/12 pneumococcal 13-valent conjugate vaccine 12/07/15 1Result Comment: [08/28/2014] see scanned document Procedures Procedure Date Related Diagnosis Body Site Excision, other benign lesion including margins, 06/04/15 except skin tag (unless listed elsewhere), face, ears, eyelids, nose, lips, mucous membrane; excised diameter 0.6 to 1.0 cm Eye surgery 1996 Social History Social History Type Response Smoking Status Never smoker Assessment and Plan Extracted from: Title: Office Visit Note Author: Erich Chester DO Date: 06/04/15 Assessment/Plan Anemia, megaloblastic 1. Will recheck his CBC and treat accordingly. 2. Continue with B-12 replacement as recommended by Dr. Luo. 3. We'll continue to follow this patient closely. Ordered: CBC w/ Differential Comprehensive Metabolic Panel Office Visit Level 4 Est 29837 B12 vitamin deficiency 1. He was set up for B-12 injection, 1000 g weekly for one month and then monthly from that point on. 2. Follow-up with air traffic control manager in June. Ordered: cyanocobalamin, 1,000 mcg, IntraMuscular, qMonth, First Dose: 06/04/15 9:00: 00 CDT Cramps, muscle, general We'll recheck his electrolytes today. Dysphagia We'll refer him to GI specialist for evaluation and determination as to whether he needs upper GI study. Ordered: Office Visit Level 4 Est 35904 Skin lesion of face 1.Excision of skin lesion was done today, once we get the results we will discuss with the patient. Procedure: Excision of verrucal lesion Indication: Irritated bleeding lesion Location: Left zygomatic arch Medication: One percent lidocaine with epinephrine, 1.5 mL Description: With the patient laid in the supine position and the head rotated towards the right, the area was cleansed with Betadine to create a sterile field. Local anesthesia was achieved using the lidocaine with epinephrine and infiltrated at the base of the lesion. Once local anesthesia was achieved, using a derma blade the lesion was excised at its base. Hemostasis was assured using heat cautery and dry dressing was applied. Wound care instructions provided. Patient tolerated procedure well. Ordered: Exc Sivakumar Les Face Ear Nose 0.6-1.0cm 46144 Office Visit Level 4 Est 84146 Extracted from: Title: Vitamin B-12 injection schedule Author: Juju Roblero MA Date: 06/04/15 B12 given Jun.04. Scheduled weekly on , and . Then monthly on July 26 and August 25
--- OUTSIDE RECORDS SUMMARY | 2018-03-07 11:04 | External Medical Summary | Referral Summary ---
:1970 Author Organization [facility] [place] [address] Care Team Providers Name Role Phone Erich Chester Primary Care Physician Encounter VC Date(s): 10/31/16 - 10/31/16 [facility] [place] [phone] [place] Discharge Diagnosis: Rib pain on left side Discharge Disposition: 01-Home or Self Care Attending Physician: Erich Chester DO Admitting Physician: Erich Chester DO Vital Signs Most recent to oldest [Reference Range]: 1 Peripheral Pulse Rate [60-100 bpm] 88 bpm (10/31/16 2:11 PM) Respiratory Rate [14-20 br/min] 18 br/min (10/31/16 2:11 PM) Blood Pressure [90-140/60-90 mmHg] 126/76 mmHg (10/31/16 2:11 PM) SpO2 98 % (10/31/16 2:11 PM) Problem List Condition Effective Dates Status [...] q24hr, # 2 amp, 0 Refill(s), Pharmacy: [facility], 1,000 mcg SubCutaneous q24hr,x2 doses Start Date: 05/24/15 Stop Date: 05/26/15 Status: Orderedfolic acid 1 mg oral tablet 1 mg 1 tabs, Oral, Daily, # 30 tabs, 6 Refill(s), Pharmacy: [facility], 1 tabs Oral Daily,x30 days Start Date: 09/11/16 Stop Date: 04/09/17 Status: OrderedNaprosyn 500 mg oral tablet 500 mg 1 tabs, Oral, BID, X 10 days, 0 Refill(s) Start Date: 10/31/16 Stop Date: 11/09/16 Status: OrderedNaprosyn 500 mg oral tablet 500 mg 1 tabs, Oral, BID, X 15 days, # 30 tabs, 0 Refill(s), Pharmacy: [facility], 1 tabs Oral BID,x15 days Start Date: 10/31/16 Stop Date: 11/15/16 Status: Orderednortriptyline 50 mg oral capsule 50 mg 1 caps, Oral, BID, # 60 caps, 6 Refill(s), Pharmacy: [facility], 1 caps Oral BID,x30 days Start Date: 10/11/16 Stop Date: 05/09/17 Status: Orderedomeprazole 20 mg oral delayed release capsule 20 mg 1 caps, Oral, BID, # 60 caps, 11 Refill(s), Pharmacy: [facility], 1 caps Oral BID,x30 days Start Date: 10/11/16 Stop Date: 10/06/17 Status: OrderedOTC Melatonin OTC Melatonin, See Instructions, PRN Sleep, take 2 tablets oral at bedtime, 0 Refill(s) Start Date: 05/19/15 Status: OrderedrisperiDONE 1 mg oral tablet See Instructions, TAKE ONE TABLET BY MOUTH ONCE DAILY AT BEDTIME, # 30 tabs, eRx : [facility], TAKE ONE TABLET BY MOUTH ONCE DAILY AT BEDTIME Start Date: 08/06/15 Status: OrderedUltram 50 mg oral tablet 50 mg 1 tabs, Oral, q6hr, as needed for pain, # 30 tabs, 0 Refill(s) Start Date: 10/31/16 Stop Date: 12/01/16 Status: OrderedVisine 1 drops, Eye-Right, Daily, 0 [...] Eye surgery 1996 1auto-populated from documented surgical [id number] from documented surgical case Social History Social History Type Response Smoking Status Never smoker Assessment and Plan Extracted from: Title: Office Visit Note Author: Erich Chester DO Date: 10/31/16 Assessment/Plan Rib pain on left side 1. ER report was reviewed in detail. 2. Imaging of the chest wall is negative for fracture. 3. His exam raises concern for an occult fracture. 4. Naproxen 500 mg twice a day for 2 weeks. 5. Ultram, one tablet every 4-6 hours as needed for pain not controlled by naproxen. 6. Follow-up for any new concerns. Ordered: naproxen, 500 mg 1 tabs, Oral, BID, X 15 days, # 30 tabs, 0 Refill(s), Pharmacy: [facility], 1 tabs Oral BID,x15 days traMADol, 50 mg 1 tabs, Oral, q6hr, as needed for pain, # 30 tabs, 0 Refill(s ) Office Visit Level 4 Est [id number]
--- OUTSIDE RECORDS SUMMARY | 2018-03-07 11:04 | External Medical Summary | Referral Summary ---
:1970 Author Organization [facility] Address [address] [place] [address] Care Team Providers Name Role Phone Erich Chester Primary Care Physician Encounter VC Date(s): 05/19/15 - 05/21/15 [facility] [address] [place] [phone] Discharge Diagnosis: Odynophagia Discharge Diagnosis: Delusional disorder Discharge Diagnosis: Hypokalemia Discharge Diagnosis: Vitamin B12 deficiency Discharge Diagnosis: Pancytopenia Discharge Diagnosis: Megaloblastic anemia Final: OTHER SPECIFIED MEGALOBLASTIC ANEMIAS, NOT ELSEWHERE CLASSIFIED Final: Other Pancytopenia Final: HYPOPOTASSEMIA Final: Delusional disorder Final: OTHER PSYCHOLOGICAL OR PHYSICAL STRESS, NOT ELSEWHERE CLASSIFIED Final: ACHALASIA AND CARDIOSPASM Discharge Disposition: 06-Home with Home Health Care Attending Physician: Oscar De Oliveira MD Admitting Physician: Chidi Alvarez DO Vital Signs Most recent to oldest [Reference Range]: 1 Temperature Oral [35.8-37.3 degC] 36.7 degC (05/21/15 3:25 PM) Peripheral Pulse Rate [60-100 bpm] 98 bpm (05/21/15 3:25 PM) Respiratory Rate [14-20 br/min] 19 br/min (05/21/15 3:25 PM) Blood Pressure [90-140/60-90 mmHg] 106/73 mmHg (05/21/15 3:25 PM) SpO2 95 % (05/21/15 3:25 PM) Problem List Condition Effective Dates Status [...] q24hr, # 2 amp, 0 Refill(s), Pharmacy: [facility], 1,000 mcg SubCutaneous q24hr,x2 doses Start Date: 05/24/15 Stop Date: 05/26/15 Status: Orderedfolic acid 1 mg oral tablet 1 mg 1 tabs, Oral, Daily, 0 Refill(s) Start Date: 05/21/15 Status: Orderedomeprazole 20 mg oral delayed release tablet 20 mg 1 tabs, Oral, BID, # 60 tabs, 6 Refill(s), Pharmacy: [facility], 1 tabs Oral BID,x30 days Start Date: 10/15/15 Stop Date: 05/12/16 Status: OrderedOTC Melatonin OTC Melatonin, See Instructions, PRN Sleep, take 2 tablets oral at bedtime, 0 Refill(s) Start Date: 05/19/15 Status: OrderedrisperiDONE 1 mg oral tablet See Instructions, TAKE ONE TABLET BY MOUTH ONCE DAILY AT BEDTIME, # 30 tabs, eRx : [facility], TAKE ONE TABLET [...] recent to oldest [Reference Range]: 1 WBC [4.8-10.8 10*3/uL] 2.0 10*3/uL *LOW* (05/21/15 6:56 AM) RBC [4.60-6.20 10*6/uL] 2.05 10*6/uL *LOW* (05/21/15 6:56 AM) Hgb [14.0-18.0 gm/dL] 7.4 gm/dL *LOW* (05/21/15 6:56 AM) Hct [42.0-52.0 %] 20.5 % *LOW* (05/21/15 6:56 AM) MCV [82.0-99.0 fL] 100.0 fL *HI* (05/21/15 6:56 AM) MCH [27.0-32.0 pg] 36.1 pg *HI* (05/21/15 6:56 AM) MCHC [32.0-36.0 gm/dL] 36.1 gm/dL *HI* (05/21/15 6:56 AM) RDW [11.5-14.5 %] 19.7 % *HI* (05/21/15 6:56 AM) Platelet [150-400 10*3/uL] 77 10*3/uL *LOW* (05/21/15 6:56 AM) MPV [9.4-12.3 fL] 8.7 fL *LOW* (05/21/15 6:56 AM) Immature Granulocytes [0.0-1.0 %] 0.0 % (05/19/15 1:21 PM) Neutrophils [51-75 %] 52 % (05/21/15 6:56 AM) Band Man [0-8 %] 3 % (05/20/15 5:05 AM) [place] Man [0-1 %] 1 % (05/20/15 5:05 AM) Lymphocytes [20-46 %] 46 % (05/21/15 6:56 AM) Monocytes [4-11 %] 0 % 1 *LOW* (05/21/15 6:56 AM) Eosinophils [0-4 %] 1 % (05/21/15 6:56 AM) Basophils [0-2 %] 1 % (05/21/15 6:56 AM) Blasts Man 1 % (05/21/15 6:56 AM) Neutro Absolute [1.90-7.00 10*3] 1.04 10*3 *LOW* (05/21/15 6:56 AM) Lymph Absolute [0.80-3.30 10*3] 0.92 10*3 (05/21/15 6:56 AM) [place] Absolute [0.30-1.00 10*3] 0.00 10*3 *LOW* (05/21/15 6:56 AM) Eos Absolute [0.00-0.50 10*3] 0.02 10*3 (05/21/15 6:56 AM) Baso Absolute [0.00-0.20 10*3] 0.01 10*3 (05/21/15 6:56 AM) Nucleated RBC Automated [0 /100 WBC] 0.0 /100 WBC (05/21/15 6:56 AM) Differential Reviewed (05/21/15 6:56 AM) Reticulocyte [0.6-2.5 %] 0.7 % (05/19/15 1:21 PM) 1Result Comment: Corrected result; previously reported as 4 on 05/21/15 at 08: 28 by Mandy Most recent to oldest [Reference Range]: 1 Sodium Lvl [136-144 mEq/L] 137 mEq/L (05/21/15 6:56 AM) Potassium Lvl [3.6-5.1 mEq/L] 3.4 mEq/L *LOW* (05/21/15 6:56 AM) Chloride [99-109 mEq/L] 107 mEq/L (05/21/15 6:56 AM) CO2 [22-32 mEq/L] 26 mEq/L (05/21/15 6:56 AM) AGAP [3-20] 4 (05/21/15 6:56 AM) BUN [4-20 mg/dL] 15 mg/dL (05/21/15 6:56 AM) Glucose Lvl [70-100 mg/dL] 98 mg/dL (05/21/15 6:56 AM) Creatinine Lvl [0.64-1.27 mg/dL] 0.93 mg/dL (05/21/15 6:56 AM) eGFR [>60] >60 1 (05/21/15 6:56 AM) Calcium Lvl [8.6-10.0 mg/dL] 8.2 mg/dL *LOW* (05/21/15 6:56 AM) Albumin Lvl [3.5-4.8 gm/dL] 3.5 gm/dL (05/19/15 1:21 PM) Total Protein [6.1-7.9 gm/dL] 6.1 gm/dL (05/19/15 1:21 PM) Globulin [1.9-4.3 gm/dL] 2.6 gm/dL (05/19/15 1:21 PM) ALT [17-63 U/L] 33 U/L (05/19/15 1:21 PM) AST [15-41 U/L] 44 U/L *HI* (05/19/15 1:21 PM) Alk Phos [26-104 U/L] 40 U/L (05/19/15 1:21 PM) Bili Total [0.2-1.2 mg/dL] 2.2 mg/dL 2 *HI* (05/19/15 1:21 PM) Iron [65-175 mcg/dL] 204 mcg/dL *HI* (05/19/15 1:21 PM) TIBC [268-490 mcg/dL] 255 mcg/dL *LOW* (05/19/15 1: PM) Iron Sat [11-46 %] 80 % *HI* (05/19/15 1:21 PM) Transferrin [180-329 mg/dL] 171 mg/dL *LOW* (05/19/15 1:21 PM) LDH [98-192 U/L] 757 U/L *HI* (05/19/15 1:21 PM) Magnesium Lvl [1.8-2.5 mg/dL] 2.0 mg/dL (05/21/15 6:56 AM) Vitamin B12 Lvl [213-816 pg/mL] 186 pg/mL *LOW* (05/19/15 1:21 PM) Folate Lvl [7.0-31.4 ng/mL] 1.8 ng/mL *LOW* (05/19/15 1:21 PM) Hep A IgM Negative (05/20/15 3:30 PM) Hep Bs Ag Negative (05/20/15 3:30 PM) Hep C Ab Negative (05/20/15 3:30 PM) Hep B Core IgM Negative (05/20/15 3:30 PM) HIV 1 and 2 Abs Non-reactive (05/20/15 3:30 PM) TSH with Reflex Free T4 [0.35-5.50] 0.69 (7/22/15 1:21 PM) Haptoglobin [36-195 mg/dL] 2 mg/dL *LOW* (05/19/15 1:21 PM) 1Result Comment: Multiply eGFR results by 1.21 for race.2Result Comment: Naproxen, specifically the metabolite O-desmethylnaproxen, may cause spurious elevation in Total Bilirubin levels.Blood Bank Results Most recent to oldest [Reference Range]: 1 ABO/Rh A POS (05/19/15 1:21 PM) Antibody Screen Tube NEG (05/19/15 1:21 PM) LOU Poly NEG (05/19/15 1:21 PM) Immunizations Vaccine Date Refusal Reason influenza virus [...]
--- OUTSIDE RECORDS SUMMARY | 2018-03-07 11:04 | External Medical Summary | Referral Summary ---
:1970 Author Organization [facility] [place] [address] Care Team Providers Name Role Phone Erich Chester Primary Care Physician Encounter VC Date(s): 12/01/16 - 12/01/16 [facility] [place] [phone] [place] Discharge Diagnosis: Pain in right wrist Discharge Diagnosis: Chronic back pain Discharge Disposition: 01-Home or Self Care Attending Physician: Erich Chester DO Admitting Physician: Erich Chester DO Vital Signs Most recent to oldest [Reference Range]: 1 Peripheral Pulse Rate [60-100 bpm] 82 bpm (12/01/16 2:07 PM) Respiratory Rate [14-20 br/min] 18 br/min (12/01/16 2:07 PM) Blood Pressure [90-140/60-90 mmHg] 122/70 mmHg (12/01/16 2:07 PM) SpO2 98 % (12/01/16 2:07 PM) Problem List Condition Effective Dates Status Health Status Informant At risk of pressure sore(Confirmed) Active Cataracts(Confirmed) 1993 Active Angina/Chest pain(Confirmed) 2007 Active Fluid imbalance(Confirmed)1 Active Headaches - Migraine(Confirmed) 2007 Active Obesity(Confirmed) Active patient 1Problem added automatically by system based on initiation of Fluid Volume Imbalance Plan of Care Allergies, Adverse Reactions, Alerts No Known Medication Allergies Medications folic acid 1 mg oral tablet 1 mg 1 tabs, Oral, Daily, # 30 tabs, 6 Refill(s), Pharmacy: [facility], 1 tabs Oral Daily,x30 days Start Date: 09/11/16 Stop Date: 04/09/17 Status: Orderednaproxen 500 mg oral tablet 500 mg 1 tabs, Oral, BID, # 60 tabs, 1 Refill(s), Pharmacy: [facility], 1 tabs Oral BID Start Date: 12/01/16 Stop Date: 12/29/16 Status: Orderednortriptyline 50 mg oral capsule 50 mg 1 caps, Oral, BID, # 60 caps, 6 Refill(s), Pharmacy: [facility], 1 caps Oral BID,x30 days Start Date: 10/11/16 Stop Date: 05/09/17 Status: Orderedomeprazole 20 mg oral delayed release capsule 20 mg 1 caps, Oral, BID, # 60 caps, 11 Refill(s), Pharmacy: [facility], 1 caps Oral BID,x30 days Start Date: 10/11/16 Stop Date: 10/06/17 Status: OrderedOTC Melatonin OTC Melatonin, See Instructions, PRN Sleep, take 2 tablets oral at bedtime, 0 Refill(s) Start Date: 05/19/15 Status: OrderedrisperiDONE 1 mg oral tablet See Instructions, TAKE ONE TABLET BY MOUTH ONCE DAILY AT BEDTIME, # 30 tabs, eRx : [facility], TAKE ONE TABLET BY MOUTH ONCE DAILY AT BEDTIME Start Date: 08/06/15 Status: OrderedVisine 1 drops, Eye-Right, Daily, 0 Refill(s) Start Date: 05/19/15 Status: Ordered Results No data available for [...] Eye surgery 1996 1auto-populated from documented surgical [id number] from documented surgical case Social History Social History Type Response Smoking Status Never smoker Assessment and Plan Extracted from: Title: Office Visit Note Author: Erich Chester DO Date: 12/01/16 Assessment/Plan Chronic back pain 1. Continue naproxen 500 mg twice a day. 2. Stretching exercises recommended. 3. Follow-up if worsening presentation. Pain in right wrist 1. This appears to be a mild sprain. 2. Mike wrap compression provided. 3. Naproxen twice a day as needed. 4. Follow-up if not improving in 2 weeks. Ordered: naproxen, 500 mg 1 tabs, Oral, BID, # 60 tabs, 1 Refill(s), Pharmacy: [facility], 1 tabs Oral BID Office Visit Level 4 Est 28125 He had pernicious anemia last year and was getting B-12 injections. We will checkour records as to whether he needs to continue the shots.
--- OUTSIDE RECORDS SUMMARY | 2018-03-07 11:04 | External Medical Summary | Referral Summary ---
:1970 Author Organization [facility] [place] [address] Care Team Providers Name Role Phone Erich Chester Primary Care Physician Encounter VC Date(s): 06/23/15 - 06/23/15 [facility] [place] [phone]- Discharge Diagnosis: Encounter for removal of sutures Discharge Diagnosis: Megaloblastic anemia Discharge Diagnosis: Anemia, megaloblastic Discharge Diagnosis: Vitamin B 12 deficiency Discharge Disposition: 01-Home or Self Care Attending Physician: Erich Chester DO Admitting Physician: Erich Chester DO Vital Signs Most recent to oldest [Reference Range]: 1 Temperature Tympanic [36.6-38.1 degC] 35.7 degC *LOW* (06/23/15 8:41 AM) Peripheral Pulse Rate [60-100 bpm] 80 bpm (06/23/15 8:41 AM) Blood Pressure [90-140/60-90 mmHg] 118/77 mmHg (06/23/15 8:41 AM) Problem List Condition Effective Dates Status [...] q24hr, # 2 amp, 0 Refill(s), Pharmacy: [facility], 1,000 mcg SubCutaneous q24hr,x2 doses Start Date: 05/24/15 Stop Date: 05/26/15 Status: Orderedfolic acid 1 mg oral tablet 1 mg 1 tabs, Oral, Daily, 0 Refill(s) Start Date: 05/21/15 Status: Orderedomeprazole 20 mg oral delayed release tablet 20 mg 1 tabs, Oral, BID, # 60 tabs, 6 Refill(s), Pharmacy: [facility], 1 tabs Oral BID,x30 days Start Date: 10/15/15 Stop Date: 05/12/16 Status: OrderedOTC Melatonin OTC Melatonin, See Instructions, PRN Sleep, take 2 tablets oral at bedtime, 0 Refill(s) Start Date: 05/19/15 Status: OrderedrisperiDONE 1 mg oral tablet See Instructions, TAKE ONE TABLET BY MOUTH ONCE DAILY AT BEDTIME, # 30 tabs, eRx : [facility], TAKE ONE TABLET [...] oldest [Reference Range]: 1 WBC [4.8-10.8 10*3/uL] 5.1 10*3/uL (06/23/15 9:08 AM) RBC [4.60-6.20] 3.89 *LOW* (06/23/15 9:08 AM) Hgb [14.0-18.0 gm/dL] 12.6 gm/dL *LOW* (06/23/15 9:08 AM) Hct [42.0-52.0 %] 38.0 % *LOW* (06/23/15 9:08 AM) MCV [82.0-99.0 fL] 97.7 fL (06/23/15 9:08 AM) MCH [27.0-32.0 pg] 32.4 pg *HI* (06/23/15 9:08 AM) MCHC [32.0-36.0 gm/dL] 33.2 gm/dL (06/23/15 9:08 AM) RDW [11.5-14.5 %] 12.1 % (06/23/15 9:08 AM) Platelet [150-400 10*3/uL] 201 10*3/uL (06/23/15 9:08 AM) MPV [8.8-14.8 fL] 9.7 fL (06/23/15 9:08 AM) Immature Granulocytes [0.0-1.0 %] 0.0 % (06/23/15 9:08 AM) Neutrophils [51-75 %] 71 % (06/23/15 9:08 AM) Lymphocytes [20-46 %] 17 % *LOW* (06/23/15 9:08 AM) Monocytes [4-11 %] 5 % (06/23/15 9:08 AM) Eosinophils [0-4 %] 6 % *HI* (06/23/15 9:08 AM) Basophils [0-2 %] 1 % (06/23/15 9:08 AM) Neutro Absolute [1.90-7.00 10*3] 3.66 10*3 (06/23/15 9:08 AM) Lymph Absolute [0.80-3.30 10*3] 0.88 10*3 (06/23/15 9:08 AM) [place] Absolute [0.30-1.00 10*3] 0.27 10*3 *LOW* (06/23/15 9:08 AM) Eos Absolute [0.00-0.50 10*3] 0.29 10*3 (06/23/15 9:08 AM) Baso Absolute [0.00-0.20 10*3] 0.04 10*3 (06/23/15 9:08 AM) Immunizations Vaccine Date Refusal Reason tetanus/diphth/pertuss (Tdap) [...] Visit Note Author: Erich Chester DO Date: 06/23/15 Assessment/Plan Encounter for removal of sutures 1. Sutures were removed without difficulty , pathology report reviewed with the patient when care instructions provided. 2. Follow-up for any new skin lesion concern. Ordered: Office Visit Level 3 Est 67219 Megaloblastic anemia 1. Continue with recommendations as per sole filler. 2. Repeat CBC today, we will fax a report to the sole filler. Ordered: Office Visit Level 3 Est 32827 Vitamin B 12 deficiency 1. Continue with B-12 injections as scheduled previously. Ordered: Office Visit Level 3 Est 35506
--- OUTSIDE RECORDS SUMMARY | 2018-03-07 11:04 | External Medical Summary | Referral Summary ---
:1970 Author Organization [facility] [place] [address] Care Team Providers Name Role Phone Erich Chester Primary Care Physician Encounter VC Date(s): 01/05/16 - 01/05/16 [facility] [place] [address]- Discharge Disposition: 01-Home or Self Care Attending [...] q24hr, # 2 amp, 0 Refill(s), Pharmacy: [facility], 1,000 mcg SubCutaneous q24hr,x2 doses Start Date: 05/24/15 Stop Date: 05/26/15 Status: Orderedfolic acid 1 mg oral tablet 1 mg 1 tabs, Oral, Daily, 0 Refill(s) Start Date: 05/21/15 Status: Orderedomeprazole 20 mg oral delayed release tablet 20 mg 1 tabs, Oral, BID, # 60 tabs, 6 Refill(s), Pharmacy: [facility], 1 tabs Oral BID,x30 days Start Date: 10/15/15 Stop Date: 05/12/16 Status: OrderedOTC Melatonin OTC Melatonin, See Instructions, PRN Sleep, take 2 tablets oral at bedtime, 0 Refill(s) Start Date: 05/19/15 Status: OrderedrisperiDONE 1 mg oral tablet See Instructions, TAKE ONE TABLET BY MOUTH ONCE DAILY AT BEDTIME, # 30 tabs, eRx : [facility], TAKE ONE TABLET BY [...]
--- OUTSIDE RECORDS SUMMARY | 2018-03-07 11:04 | External Medical Summary | Referral Summary ---
:1970 Author Organization [facility] [place] [address] Care Team Providers Name Role Phone Erich Chester Primary Care Physician Encounter VC Date(s): 01/09/17 - 01/09/17 [facility] [place] [phone] [place] Discharge Diagnosis: Anemia, pernicious Discharge Diagnosis: Chronic constipation Discharge Diagnosis: Hospital discharge follow-up Discharge Disposition: 01-Home or Self Care Attending Physician: Erich Chester DO Admitting Physician: Erich Chester DO Vital Signs Most recent to oldest [Reference Range]: 1 Temperature Tympanic [36.6-38.1 degC] 36.3 degC *LOW* (01/09/17 2:32 PM) Peripheral Pulse Rate [60-100 bpm] 99 bpm (01/09/17 2:32 PM) Respiratory Rate [14-20 br/min] 18 br/min (01/09/17 2:32 PM) Blood Pressure [90-140/60-90 mmHg] 120/72 mmHg (01/09/17 2:32 PM) SpO2 98 % (01/09/17 2:32 PM) Problem List Condition Effective Dates Status [...] Daily, # 30 tabs, 6 Refill(s), Pharmacy: [facility], 1 tabs Oral Daily,x30 days Start Date: 09/11/16 Stop Date: 04/09/17 Status: Orderedomeprazole 20 mg oral delayed release capsule 20 mg 1 caps, Oral, BID, # 60 caps, 11 Refill(s), Pharmacy: [facility], 1 caps Oral BID,x30 days Start Date: 10/11/16 Stop Date: 10/06/17 Status: OrderedOTC Melatonin OTC Melatonin, See Instructions, PRN Sleep, take 2 tablets oral at bedtime, 0 Refill(s) Start Date: 05/19/15 Status: OrderedVisine 1 drops, Eye-Right, Daily, 0 [...] in 10 years or sooner if concerns [id number] populated from documented surgical [id number] from documented surgical case Social History Social History Type Response Smoking Status Never smoker Assessment and Plan Extracted from: Title: Office Visit Note Author: Erich Chester DO Date: 01/09/17 Assessment/Plan 1.Chronic constipation 1. Recommended natural fiber in his diet. 2. Recommended daily Brown Cow drink, mixture was explained to the patient and written down in simple language for him. 3. Follow up in 2 weeks for reevaluation. Ordered: [facility] 14 Day Disch [id number] 2.Anemia, pernicious 1. He continues to have anemia butnow this appears to be iron deficiency since his B-12was 377 and his serum iron level was 40 at his recent hospitalization. 2. We will start him on iron replacement once he is having more regular BM' s. Ordered: [facility] 14 Day Disch [id number] 3.Hospital discharge follow-up TCM charting and hospital records reviewed in detail.
--- OUTSIDE RECORDS SUMMARY | 2018-03-07 11:04 | External Medical Summary | Referral Summary ---
:1970 Author Organization [facility] [place] [address] Care Team Providers Name Role Phone Erich Chester Primary Care Physician Encounter VC Date(s): 01/23/17 - 01/23/17 [facility] [place] [phone] [place] Discharge Diagnosis: Back muscle spasm Discharge Diagnosis: Poor diet Discharge Diagnosis: Muscle spasms of both lower extremities Discharge Diagnosis: Medication management Discharge Diagnosis: Chronic constipation Discharge Diagnosis: Constipation Discharge Disposition: 01-Home or Self Care Attending Physician: Erich Chester DO Admitting Physician: Erich Chester DO Vital Signs Most recent to oldest [Reference Range]: 1 Temperature Oral [35.8-37.3 degC] 36.7 degC (01/23/17 10:08 AM) Peripheral Pulse Rate [60-100 bpm] 88 bpm (01/23/17 10:08 AM) Respiratory Rate [14-20 br/min] 18 br/min (01/23/17 10:08 AM) Blood Pressure [90-140/60-90 mmHg] 116/78 mmHg (01/23/17 10:08 AM) Problem List Condition Effective Dates Status Health Status Informant At risk of pressure sore(Confirmed) Active Cataracts(Confirmed) 1993 Active Angina/Chest pain(Confirmed) 2007 Active Fluid imbalance(Confirmed)1 Active Headaches - Migraine(Confirmed) 2007 Active Obesity(Confirmed) Active patient 1Problem added automatically by system based on initiation of Fluid Volume Imbalance Plan of Care Allergies, Adverse Reactions, Alerts No Known Medication Allergies Medications baclofen 10 mg oral tablet 10 mg 1 tabs, Oral, BID, # 60 tabs, 0 Refill(s), Pharmacy: [facility], 1 tabs Oral BID,x30 days Start Date: 01/23/17 Stop Date: 02/22/17 Status: Orderedfolic acid 1 mg oral tablet 1 mg 1 tabs, Oral, Daily, # 30 tabs, 6 Refill(s), Pharmacy: [facility], 1 tabs Oral Daily,x30 days Start Date: 09/11/16 Stop Date: 04/09/17 Status: Orderedmetoprolol succinate 25 mg oral tablet, extended release mg tabs, Oral, Daily, 0 Refill(s) Start Date: 01/23/17 Status: Orderedomeprazole 20 mg oral delayed release capsule 20 mg 1 caps, Oral, BID, # 60 caps, 11 Refill(s), Pharmacy: [facility], 1 caps Oral BID,x30 days Start Date: 10/11/16 Stop Date: 10/06/17 Status: OrderedOTC Melatonin OTC Melatonin, See Instructions, PRN Sleep, take 2 tablets oral at bedtime, 0 Refill(s) Start Date: 05/19/15 Status: OrderedrisperiDONE 0 Refill(s) Start Date: 01/23/17 Status: OrderedtraZODone Oral, 0 Refill(s) Start Date: [...] in 10 years or sooner if concerns [id number] populated from documented surgical [id number] from documented surgical case Social History Social History Type Response Smoking Status Never smoker Assessment and Plan Extracted from: Title: Office Visit Note Author: Henrik Erich RAM Date: 01/23/17 Assessment/Plan 1.Back muscle spasm 1. 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 2. Stretching exercises and increased activity recommended. 3. We will try him on Baclofen 10 mg bid 4. Follow up in a month for reassessment. 2.Medication management 1. Recommended psych appointment for review of his psych medications. 3.Chronic constipation 1. This was likely a combination of poor diet and medications. 2. Recommended dietary changes. 3. Continue with Brown Cow Drink as needed. Muscle spasms of both lower extremities As above. Ordered: baclofen, 10 mg 1 tabs, Oral, BID, # 60 tabs, 0 Refill(s), Pharmacy: [facility], 1 tabs Oral BID,x30 days Office Visit Level 4 Est 98902 Poor diet 1. We discussed this in detail with the patient and his case packer and sealer. 2. Recommended some assistance when he goes shopping for his foods. His case packer and sealer with work on getting someone to direct him on making healthier food choices. 3. Continue with Folate and B-12 oral replacement. Ordered: baclofen, 10 mg 1 tabs, Oral, BID, # 60 tabs, 0 Refill(s), Pharmacy: [facility], 1 tabs Oral BID,x30 days Office Visit Level 4 Est 79667
--- OUTSIDE RECORDS SUMMARY | 2018-03-07 11:04 | External Medical Summary | Referral Summary ---
:1970 Author Organization [facility] [place] [address] Care Team Providers Name Role Phone Erich Chester Primary Care Physician Encounter VC Date(s): 06/09/16 - 06/09/16 [facility] [place] [phone] [place] Discharge Disposition: 01-Home or Self Care Attending Physician: Erich Chester DO Admitting Physician: Erich Chester DO Vital Signs Most recent to oldest [Reference Range]: 1 Temperature Tympanic [36.6-38.1 degC] 36.7 degC (06/09/16 10:02 AM) Peripheral Pulse Rate [60-100 bpm] 80 bpm (06/09/16 10:02 AM) Blood Pressure [90-140/60-90 mmHg] 125/89 mmHg (06/09/16 10:02 AM) Problem List Condition Effective Dates Status [...] q24hr, # 2 amp, 0 Refill(s), Pharmacy: [facility], 1,000 mcg SubCutaneous q24hr,x2 doses Start Date: 05/24/15 Stop Date: 05/26/15 Status: Orderedfolic acid 1 mg oral tablet 1 mg 1 tabs, Oral, Daily, 0 Refill(s) Start Date: 05/21/15 Status: Orderedomeprazole 20 mg oral delayed release tablet 20 mg 1 tabs, Oral, BID, # 60 tabs, 6 Refill(s), Pharmacy: [facility], 1 tabs Oral BID,x30 days Start Date: 10/15/15 Stop Date: 05/12/16 Status: OrderedOTC Melatonin OTC Melatonin, See Instructions, PRN Sleep, take 2 tablets oral at bedtime, 0 Refill(s) Start Date: 05/19/15 Status: OrderedrisperiDONE 1 mg oral tablet See Instructions, TAKE ONE TABLET BY MOUTH ONCE DAILY AT BEDTIME, # 30 tabs, eRx : [facility], TAKE ONE TABLET BY MOUTH ONCE DAILY AT BEDTIME Start Date: 08/06/15 Status: OrderedtraZODone 50 mg oral tablet 50 mg 1 tabs, Oral, Bedtime (once a day), 0 Refill(s) Start Date: 12/14/14 Status: OrderedVisine 1 drops, Eye-Right, Daily, 0 Refill(s) Start Date: 05/19/15 Status: OrderedVitamin B12 1,000 mcg 1 mL, SubCutaneous, qMonth, 0 Refill(s) Start Date: 05/21/15 Status: Ordered Results Chemistry Most recent to oldest [Reference Range]: 1 Estimated Creatinine Clearance 73.79 mL/min (06/09/16 10:07 AM) Immunizations Vaccine Date Refusal Reason tetanus/diphth/pertuss (Tdap) adult/adol 12/07/15 influenza virus vaccine, inactivated 08/25/15 influenza virus vaccine, inactivated1 08/28/14 influenza virus vaccine, live 07/15/13 influenza virus vaccine, live 10/07/12 pneumococcal 13-valent conjugate vaccine 12/07/15 1Result Comment: [08/28/2014] see scanned document Procedures Procedure Date Related Diagnosis Body Site Esophagogastroduodenoscopy - SN1 02/16/16 Procedure with Anesthesia2 02/16/16 Eye surgery 1996 1auto-populated from documented surgical [id number] from documented surgical case Social History Social History Type Response Smoking Status Never smoker Assessment and Plan No data available for this section
--- OUTSIDE RECORDS SUMMARY | 2018-03-07 11:05 | External Medical Summary | Referral Summary ---
:1970 Author Organization [facility] [place] [address] Care Team Providers Name Role Phone Erich Chester Primary Care Physician Encounter VC Date(s): 09/28/15 - 09/28/15 [facility] [address] [place] [phone] [place] Discharge Disposition: [...] q24hr, # 2 amp, 0 Refill(s), Pharmacy: [facility], 1,000 mcg SubCutaneous q24hr,x2 doses Start Date: 05/24/15 Stop Date: 05/26/15 Status: Orderedfolic acid 1 mg oral tablet 1 mg 1 tabs, Oral, Daily, 0 Refill(s) Start Date: 05/21/15 Status: Orderedibuprofen 800 mg oral tablet 1 tabs, Oral, TID, as needed for pain, # 90 tabs, 0 Refill(s), Pharmacy: [facility], 1 tabs Oral TID,PRN:as needed for pain Start Date: 11/03/14 Status: Orderedomeprazole 20 mg oral delayed release tablet 20 mg 1 tabs, Oral, Daily, # 30 tabs, 2 Refill(s), Pharmacy: [facility], 1 tabs Oral Daily Start Date: 05/18/15 Status: OrderedOTC Melatonin OTC Melatonin, See Instructions, PRN Sleep, take 2 tablets oral at bedtime, 0 Refill(s) Start Date: 05/19/15 Status: OrderedrisperiDONE 1 mg oral tablet See Instructions, TAKE ONE TABLET BY MOUTH ONCE DAILY AT BEDTIME, # 30 tabs, eRx : [facility], TAKE ONE TABLET BY [...]
--- OUTSIDE RECORDS SUMMARY | 2018-03-07 11:05 | External Medical Summary | Referral Summary ---
:1970 Author Organization [facility] [place] [address] Care Team Providers Name Role Phone Erich Chester Primary Care Physician Encounter VC Date(s): 08/25/15 - 08/25/15 [facility] [place] [place] [phone] [place] Discharge Disposition: [...] q24hr, # 2 amp, 0 Refill(s), Pharmacy: [facility], 1,000 mcg SubCutaneous q24hr,x2 doses Start Date: 05/24/15 Stop Date: 05/26/15 Status: Orderedfolic acid 1 mg oral tablet 1 mg 1 tabs, Oral, Daily, 0 Refill(s) Start Date: 05/21/15 Status: Orderedibuprofen 800 mg oral tablet 1 tabs, Oral, TID, as needed for pain, # 90 tabs, 0 Refill(s), Pharmacy: [facility], 1 tabs Oral TID,PRN:as needed for pain Start Date: 11/03/14 Status: Orderedomeprazole 20 mg oral delayed release tablet See Instructions, 1 tabs Oral Daily, # 30 tabs, eRx: [facility], 1 tabs Oral Daily Start Date: 08/16/15 Status: Orderedomeprazole 20 mg oral delayed release tablet 20 mg 1 tabs, Oral, Daily, # 30 tabs, 2 Refill(s), Pharmacy: [facility], 1 tabs Oral Daily Start Date: 05/18/15 Status: OrderedOTC Melatonin OTC Melatonin, See Instructions, PRN Sleep, take 2 tablets oral at bedtime, 0 Refill(s) Start Date: 05/19/15 Status: OrderedrisperiDONE 1 mg oral tablet See Instructions, TAKE ONE TABLET BY MOUTH ONCE DAILY AT BEDTIME, # 30 tabs, eRx : [facility], TAKE ONE TABLET BY [...]
--- OUTSIDE RECORDS SUMMARY | 2018-03-07 11:05 | External Medical Summary | Referral Summary ---
:1970 Author Organization [facility] [place] [address] Care Team Providers Name Role Phone Erich Chester Primary Care Physician Encounter VC Date(s): 03/08/16 - 03/08/16 [facility] [place] [phone] [place] Discharge Disposition: 01-Home or Self Care Attending Physician: Erich Chester DO Admitting Physician: Erich Chester DO Vital Signs Most recent to oldest [Reference Range]: 1 Temperature Tympanic [36.6-38.1 degC] 36.2 degC *LOW* (03/08/16 9:17 AM) Apical Heart Rate [60-100 bpm] 95 bpm (03/08/16 9:17 AM) Blood Pressure [90-140/60-90 mmHg] 118/78 mmHg (03/08/16 9:17 AM) SpO2 98 % (03/08/16 9:17 AM) Problem List Condition Effective Dates Status [...] q24hr, # 2 amp, 0 Refill(s), Pharmacy: [facility], 1,000 mcg SubCutaneous q24hr,x2 doses Start Date: 05/24/15 Stop Date: 05/26/15 Status: Orderedfolic acid 1 mg oral tablet 1 mg 1 tabs, Oral, Daily, 0 Refill(s) Start Date: 05/21/15 Status: Orderedomeprazole 20 mg oral delayed release tablet 20 mg 1 tabs, Oral, BID, # 60 tabs, 6 Refill(s), Pharmacy: [facility], 1 tabs Oral BID,x30 days Start Date: 10/15/15 Stop Date: 05/12/16 Status: OrderedOTC Melatonin OTC Melatonin, See Instructions, PRN Sleep, take 2 tablets oral at bedtime, 0 Refill(s) Start Date: 05/19/15 Status: OrderedrisperiDONE 1 mg oral tablet See Instructions, TAKE ONE TABLET BY MOUTH ONCE DAILY AT BEDTIME, # 30 tabs, eRx : [facility], TAKE ONE TABLET BY MOUTH [...] oldest [Reference Range]: 1 WBC [4.8-10.8 10*3/uL] 4.5 10*3/uL *LOW* (03/08/16 9:58 AM) RBC [4.60-6.20] 4.61 (03/08/16 9:58 AM) Hgb [14.0-18.0 gm/dL] 13.7 gm/dL *LOW* (03/08/16 9:58 AM) Hct [42.0-52.0 %] 40.6 % *LOW* (03/08/16 9:58 AM) MCV [82.0-99.0 fL] 88.1 fL (03/08/16 9:58 AM) MCH [27.0-32.0 pg] 29.7 pg (03/08/16 9:58 AM) MCHC [32.0-36.0 gm/dL] 33.7 gm/dL (03/08/16 9:58 AM) RDW [11.5-14.5 %] 13.6 % (03/08/16 9:58 AM) Platelet [150-400 10*3/uL] 197 10*3/uL (03/08/16 9:58 AM) MPV [8.8-14.8 fL] 10.0 fL (03/08/16 9:58 AM) Immature Granulocytes [0.0-1.0 %] 0.2 % (03/08/16 9:58 AM) Neutrophils [51-75 %] 57 % (03/08/16 9:58 AM) Lymphocytes [20-46 %] 27 % (03/08/16 9:58 AM) Monocytes [4-11 %] 8 % (03/08/16 9:58 AM) Eosinophils [0-4 %] 7 % *HI* (03/08/16 9:58 AM) Basophils [0-2 %] 1 % (03/08/16 9:58 AM) Neutro Absolute [1.90-7.00 10*3] 2.55 10*3 (03/08/16 9:58 AM) Lymph Absolute [0.80-3.30 10*3] 1.18 10*3 (03/08/16 9:58 AM) [place] Absolute [0.30-1.00 10*3] 0.36 10*3 (03/08/16 9:58 AM) Eos Absolute [0.00-0.50 10*3] 0.31 10*3 (03/08/16 9:58 AM) Baso Absolute [0.00-0.20 10*3] 0.05 10*3 (03/08/16 9:58 AM) Chemistry Most recent to oldest [Reference Range]: 1 Vitamin B12 Lvl [213-816 pg/mL] >2000 pg/mL *HI* (03/08/16 9:58 AM) Folate Lvl [7.0-31.4 ng/mL] >20.0 ng/mL (03/08/16 9:58 AM) Immunizations Vaccine Date Refusal Reason tetanus/diphth/pertuss (Tdap) adult/adol 12/07/15 influenza virus vaccine, inactivated 08/25/15 influenza virus vaccine, inactivated1 08/28/14 influenza virus vaccine, live 07/15/13 influenza virus vaccine, live 10/07/12 pneumococcal 13-valent conjugate vaccine 12/07/15 1Result Comment: [08/28/2014] see scanned document Procedures Procedure Date Related Diagnosis Body Site Esophagogastroduodenoscopy - SN1 02/16/16 Procedure with Anesthesia2 02/16/16 Eye surgery 1996 1auto-populated from documented surgical [id number] from documented surgical case Social History Social History Type Response Smoking Status Never smoker Assessment and Plan Extracted from: Title: Office Visit Note Author: Erich Chester DO Date: 03/08/16 Assessment/Plan Anemia, macrocytic 1. B-12 injection given today. 2. We will recheck his B-12 level, if it's back to normal then we plan on replacing this vitamin orally from this point on. 3. CBC ordered, report is pending. Ordered: cyanocobalamin, 1,000 mcg, IntraMuscular, qMonth, First Dose: 03/08/16 10:00: 00 CDT CBC w/ Differential Office Visit Level 4 Est 44578 Vitamin B12 and Folate Chronic upper back pain 1. He appears to be in more discomfort with mid back pain compared to previous. 2. We will repeat the MRI of his thoracic spine and refer him to Dr. Jacob for farther evaluation. Ordered: Office Visit Level 4 Est 94123 GERD (gastroesophageal reflux disease) 1. Continue with recommendations as per pbx wire chief. 2. We reviewed his pathology report of his recent gastric biopsy, finding was for benign lesion with changes consistent with acid reflux. 3. Continue with omeprazole 20 mg daily. Ordered: Office Visit Level 4 Est 59065 Orders: MRI Spine Thoracic w/o Contrast
--- OUTSIDE RECORDS SUMMARY | 2018-03-07 11:05 | External Medical Summary | Referral Summary ---
:1970 Author Organization [facility] [place] [address] Care Team Providers Name Role Phone Erich Chester Primary Care Physician Encounter VC Date(s): 03/14/16 - 03/14/16 [facility] [place] [place] [phone] [place] Discharge Diagnosis: Constipation Discharge Disposition: 01-Home or Self Care Attending Physician: Erich Chester DO Admitting Physician: Erich Chester DO Vital Signs Most recent to oldest [Reference Range]: 1 Temperature Tympanic [36.6-38.1 degC] 36.5 degC *LOW* (03/14/16 2:16 PM) Peripheral Pulse Rate [60-100 bpm] 81 bpm (03/14/16 2:16 PM) Blood Pressure [90-140/60-90 mmHg] 118/80 mmHg (03/14/16 2:16 PM) SpO2 98 % (03/14/16 2:16 PM) Problem List Condition Effective Dates Status [...] q24hr, # 2 amp, 0 Refill(s), Pharmacy: [facility], 1,000 mcg SubCutaneous q24hr,x2 doses Start Date: 05/24/15 Stop Date: 05/26/15 Status: Orderedfolic acid 1 mg oral tablet 1 mg 1 tabs, Oral, Daily, 0 Refill(s) Start Date: 05/21/15 Status: Orderedomeprazole 20 mg oral delayed release tablet 20 mg 1 tabs, Oral, BID, # 60 tabs, 6 Refill(s), Pharmacy: [facility], 1 tabs Oral BID,x30 days Start Date: 10/15/15 Stop Date: 05/12/16 Status: OrderedOTC Melatonin OTC Melatonin, See Instructions, PRN Sleep, take 2 tablets oral at bedtime, 0 Refill(s) Start Date: 05/19/15 Status: OrderedrisperiDONE 1 mg oral tablet See Instructions, TAKE ONE TABLET BY MOUTH ONCE DAILY AT BEDTIME, # 30 tabs, eRx : [facility], TAKE ONE TABLET BY [...] Eye surgery 1996 1auto-populated from documented surgical [id number] from documented surgical case Social History Social History Type Response Smoking Status Never smoker Assessment and Plan Extracted from: Title: Office Visit Note Author: Erich Chester DO Date: 03/14/16 Assessment/Plan Constipation, Slow transit constipation 1. Brown Cow Drink recommended; mixture was explained to the patient and his social worker psychiatric, they voiced understanding. 2. Follow-up if worsening presentation or not improving. Ordered: Office Visit Level 3 Est 87222
--- OUTSIDE RECORDS SUMMARY | 2018-03-07 11:05 | External Medical Summary | Referral Summary ---
:1970 Author Organization Via [facility] Address [address] [place] [address] Care Team Providers Name Role Phone Erich Chester Primary Care Physician Encounter VC Date(s): 02/16/16 - 02/16/16 [address] [facility] [address] [place] [address] [phone] Discharge Disposition: -Psychiatric Facility Attending Physician: Lelo Garcia MD Admitting Physician: Lelo Garcia MD Vital Signs Most recent to oldest [Reference Range]: 1 Temperature Temporal Artery [36.3-37.8 degC] 36.1 degC *LOW* (02/16/16 2:43 PM) Apical Heart Rate [60-100 bpm] 75 bpm (02/16/16 1:45 PM) Heart Rate Monitored [60-100 bpm] 74 bpm (02/16/16 3:00 PM) Respiratory Rate [14-20 br/min] 12 br/min *LOW* (02/16/16 3:00 PM) Blood Pressure [90-140/60-90 mmHg] 108/75 mmHg (02/16/16 3:00 PM) Mean Arterial Pressure, Cuff 90 mmHg (02/16/16 3:00 PM) SpO2 97 % (02/16/16 3:00 PM) Problem List Condition Effective Dates Status [...] q24hr, # 2 amp, 0 Refill(s), Pharmacy: [facility], 1,000 mcg SubCutaneous q24hr,x2 doses Start Date: 05/24/15 Stop Date: 05/26/15 Status: Orderedfolic acid 1 mg oral tablet 1 mg 1 tabs, Oral, Daily, 0 Refill(s) Start Date: 05/21/15 Status: Orderedomeprazole 20 mg oral delayed release tablet 20 mg 1 tabs, Oral, BID, # 60 tabs, 6 Refill(s), Pharmacy: [facility], 1 tabs Oral BID,x30 days Start Date: 10/15/15 Stop Date: 05/12/16 Status: OrderedOTC Melatonin OTC Melatonin, See Instructions, PRN Sleep, take 2 tablets oral at bedtime, 0 Refill(s) Start Date: 05/19/15 Status: OrderedrisperiDONE 1 mg oral tablet See Instructions, TAKE ONE TABLET BY MOUTH ONCE DAILY AT BEDTIME, # 30 tabs, eRx : [facility], TAKE ONE TABLET [...] Eye surgery 1996 1auto-populated from documented surgical [id number] from documented surgical case Social History Social History Type Response Smoking Status Never smoker Assessment and Plan Extracted from: Title: Office Visit Note Author: Lelo Garcia MD Date: 02/16/16 Assessment/Plan Ordered: Blood Pressure NPO Obtain consent Oxygen Therapy Peripheral IV Insertion Pulse Oximetry Remote Telemetry Vital Signs The EGD procedure, indication, possible risks were explained. The patient has agreed to have this test done. He denies dysphagia or abdominal pain.
--- OUTSIDE RECORDS SUMMARY | 2018-03-07 11:05 | External Medical Summary | Referral Summary ---
:1970 Author Organization [facility] [place] [address] Care Team Providers Name Role Phone Erich Chester Primary Care Physician Encounter VC Date(s): 11/02/15 - 11/02/15 [facility] [place] [phone] [place] Discharge Diagnosis: Anemia, macrocytic, nutritional Discharge Diagnosis: Esophageal dysphagia Discharge Disposition: 01-Home or Self Care Attending Physician: Erich Chester DO Admitting Physician: Erich Chester DO Vital Signs Most recent to oldest [Reference Range]: 1 Temperature Tympanic [36.6-38.1 degC] 35.8 degC *LOW* (11/02/15 9:17 AM) Peripheral Pulse Rate [60-100 bpm] 70 bpm (11/02/15 9:17 AM) Blood Pressure [90-140/60-90 mmHg] 105/70 mmHg (11/02/15 9:17 AM) Problem List Condition Effective Dates [...] q24hr, # 2 amp, 0 Refill(s), Pharmacy: [facility], 1,000 mcg SubCutaneous q24hr,x2 doses Start Date: 05/24/15 Stop Date: 05/26/15 Status: Orderedfolic acid 1 mg oral tablet 1 mg 1 tabs, Oral, Daily, 0 Refill(s) Start Date: 05/21/15 Status: Orderedomeprazole 20 mg oral delayed release tablet 20 mg 1 tabs, Oral, BID, # 60 tabs, 6 Refill(s), Pharmacy: [facility], 1 tabs Oral BID,x30 days Start Date: 10/15/15 Stop Date: 05/12/16 Status: OrderedOTC Melatonin OTC Melatonin, See Instructions, PRN Sleep, take 2 tablets oral at bedtime, 0 Refill(s) Start Date: 05/19/15 Status: OrderedrisperiDONE 1 mg oral tablet See Instructions, TAKE ONE TABLET BY MOUTH ONCE DAILY AT BEDTIME, # 30 tabs, eRx : [facility], TAKE ONE TABLET BY [...] oldest [Reference Range]: 1 WBC [4.8-10.8 10*3/uL] 3.5 10*3/uL *LOW* (11/02/15 9:48 AM) RBC [4.60-6.20] 4.60 (11/02/15 9:48 AM) Hgb [14.0-18.0 gm/dL] 13.7 gm/dL *LOW* (11/02/15 9:48 AM) Hct [42.0-52.0 %] 41.2 % *LOW* (11/02/15 9:48 AM) MCV [82.0-99.0 fL] 89.6 fL (11/02/15 9:48 AM) MCH [27.0-32.0 pg] 29.8 pg (11/02/15 9:48 AM) MCHC [32.0-36.0 gm/dL] 33.3 gm/dL (11/02/15 9:48 AM) RDW [11.5-14.5 %] 13.1 % (11/02/15 9:48 AM) Platelet [150-400 10*3/uL] 180 10*3/uL (11/02/15 9:48 AM) MPV [8.8-14.8 fL] 10.1 fL (11/02/15 9:48 AM) Immature Granulocytes [0.0-1.0 %] 0.0 % (11/02/15 9:48 AM) Neutrophils [51-75 %] 56 % (11/02/15 9:48 AM) Lymphocytes [20-46 %] 28 % (11/02/15 9:48 AM) Monocytes [4-11 %] 8 % (11/02/15 9:48 AM) Eosinophils [0-4 %] 6 % *HI* (11/02/15 9:48 AM) Basophils [0-2 %] 1 % (11/02/15 9:48 AM) Neutro Absolute [1.90-7.00 10*3] 1.96 10*3 (11/02/15 9:48 AM) Lymph Absolute [0.80-3.30 10*3] 0.99 10*3 (11/02/15 9:48 AM) [place] Absolute [0.30-1.00 10*3] 0.28 10*3 *LOW* (11/02/15 9:48 AM) Eos Absolute [0.00-0.50 10*3] 0.22 10*3 (11/02/15 9:48 AM) Baso Absolute [0.00-0.20 10*3] 0.03 10*3 (11/02/15 9:48 AM) Immunizations Vaccine Date Refusal Reason influenza virus [...] Visit Note Author: Erich Chester DO Date: 11/02/15 Assessment/Plan Anemia, macrocytic, nutritional 1. B-12 injection given today. 2. Repeat CBC today. 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 3. Follow-up monthly for his B-12 injections. Ordered: CBC w/ Differential Office Visit Level 4 Est 04421 Esophageal dysphagia 1. Continue with diet modification to control his acid reflux. 2. Agree with repeating the esophagram in December. 3. Follow-up if worsening symptoms or new concerns. Ordered: Office Visit Level 4 Est 34177
--- OUTSIDE RECORDS SUMMARY | 2018-03-07 11:05 | External Medical Summary | Referral Summary ---
:1970 Author Organization [facility] [place] [address] Care Team Providers Name Role Phone Erich Chester Primary Care Physician Encounter VC Date(s): 05/18/15 - 05/18/15 [facility] [place] [place] [phone] [place] Discharge Diagnosis: Acid reflux Discharge Diagnosis: Esophageal dysphagia Discharge Disposition: 01-Home or Self Care Attending Physician: Erich Chester DO Admitting Physician: Erich Chester DO Vital Signs Most recent to oldest [Reference Range]: 1 Temperature Tympanic [36.6-38.1 degC] 36.5 degC *LOW* (05/18/15 1:03 PM) Peripheral Pulse Rate [60-100 bpm] 78 bpm (05/18/15 1:03 PM) Blood Pressure [90-140/60-90 mmHg] 130/68 mmHg (05/18/15 1:03 PM) Problem List Condition Effective Dates Status [...] q24hr, # 2 amp, 0 Refill(s), Pharmacy: [facility], 1,000 mcg SubCutaneous q24hr,x2 doses Start Date: 05/24/15 Stop Date: 05/26/15 Status: Orderedfolic acid 1 mg oral tablet 1 mg 1 tabs, Oral, Daily, 0 Refill(s) Start Date: 05/21/15 Status: Orderedomeprazole 20 mg oral delayed release tablet 20 mg 1 tabs, Oral, BID, # 60 tabs, 6 Refill(s), Pharmacy: [facility], 1 tabs Oral BID,x30 days Start Date: 10/15/15 Stop Date: 05/12/16 Status: OrderedOTC Melatonin OTC Melatonin, See Instructions, PRN Sleep, take 2 tablets oral at bedtime, 0 Refill(s) Start Date: 05/19/15 Status: OrderedrisperiDONE 1 mg oral tablet See Instructions, TAKE ONE TABLET BY MOUTH ONCE DAILY AT BEDTIME, # 30 tabs, eRx : [facility], TAKE ONE TABLET BY [...] oldest [Reference Range]: 1 WBC [4.8-10.8 10*3/uL] 3.1 10*3/uL *LOW* (05/18/15 1:27 PM) RBC [4.60-6.20 10*6/uL] 1.73 10*6/uL *LOW* (05/18/15 1:27 PM) Hgb [14.0-18.0 gm/dL] 7.0 gm/dL *LLOW* (05/18/15 1:27 PM) Hct [42.0-52.0 %] 19.6 % *LLOW* (05/18/15 1:27 PM) MCV [82.0-99.0 fL] 113.3 fL *HI* (05/18/15 1:27 PM) MCH [27.0-32.0 pg] 40.5 pg *HI* (05/18/15 1:27 PM) MCHC [32.0-36.0 gm/dL] 35.7 gm/dL (05/18/15 1:27 PM) RDW [11.5-14.5 %] 15.9 % *HI* (05/18/15 1:27 PM) Platelet [150-400 10*3/uL] 147 10*3/uL *LOW* (05/18/15 1:27 PM) MPV [8.8-14.8 fL] 9.0 fL (05/18/15 1:27 PM) Neutrophils [51-75 %] 47 % *LOW* (05/18/15 1:27 PM) Lymphocytes [20-46 %] 49 % *HI* (05/18/15 1:27 PM) Monocytes [4-11 %] 1 % *LOW* (05/18/15 1: PM) Eosinophils [0-4 %] 3 % (05/18/15 1:27 PM) Basophils [0-2 %] 0 % (05/18/15 1:27 PM) Neutro Absolute [1.90-7.00 10*3] 1.46 10*3 *LOW* (05/18/15 1:27 PM) Lymph Absolute [0.80-3.30 10*3] 1.52 10*3 (05/18/15 1:27 PM) [place] Absolute [0.30-1.00 10*3] 0.03 10*3 *LOW* (05/18/15 1:27 PM) Eos Absolute [0.00-0.50 10*3] 0.09 10*3 (05/18/15 1:27 PM) Baso Absolute [0.00-0.20 10*3] 0.00 10*3 (05/18/15 1:27 PM) Differential Manual *ABN* (05/18/15 1:27 PM) Chemistry Most recent to oldest [Reference Range]: 1 Sodium Lvl [135-144 mEq/L] 139 mEq/L (05/18/15 1:27 PM) Potassium Lvl [3.5-5.2 mEq/L] 3.1 mEq/L *LOW* (05/18/15 1:27 PM) Chloride [99-111 mEq/L] 105 mEq/L (05/18/15 1:27 PM) CO2 [23-31 mEq/L] 25 mEq/L (05/18/15 1:27 PM) AGAP [3-20] 9 (05/18/15 1:27 PM) BUN [9-21 mg/dL] 13 mg/dL (05/18/15 1:27 PM) Glucose Lvl [70-99 mg/dL] 136 mg/dL *HI* (05/18/15 1:27 PM) Creatinine Lvl [0.72-1.25 mg/dL] 1.09 mg/dL (05/18/15 1:27 PM) eGFR [>60 mL/min] >60 mL/min 1 (05/18/15 1:27 PM) Calcium Lvl [8.9-10.5 mg/dL] 8.7 mg/dL *LOW* (05/18/15 1:27 PM) Albumin Lvl [3.5-5.0 gm/dL] 3.8 gm/dL (05/18/15 1:27 PM) Total Protein [6.4-8.3 gm/dL] 6.4 gm/dL (05/18/15 1:27 PM) Globulin [1.8-4.0 gm/dL] 2.6 gm/dL (05/18/15 1:27 PM) ALT [0-55 U/L] 34 U/L (05/18/15 1:27 PM) AST [5-34 U/L] 40 U/L *HI* (05/18/15 1:27 PM) Alk Phos [40-150 U/L] 49 U/L (05/18/15 1:27 PM) Bili Total [0.2-1.2 mg/dL] 1.9 mg/dL *HI* (05/18/15 1:27 PM) TSH with Reflex Free T4 [0.35-4.94] 0.85 (05/18/15 1:27 PM) 1Result Comment: Multiply eGFR results by 1.21 for race. Immunizations Vaccine Date Refusal Reason influenza virus [...] Visit Note Author: Erich Chester DO Date: 05/18/15 Assessment/Plan Acid reflux 1. I suspect he is having some acid reflux causing his gastric discomfort. 2. Omeprazole 20 mg daily. 3. Follow-up in a month for reevaluation. Ordered: Office Visit Level 4 Est 77334 Esophageal dysphagia 1. Will order labs to consist of CBC, complete metabolic profile and TSH. Once we get results we will discuss with the patient . If labs are completely normal and his symptoms do not resolve with the treatment of omeprazole then we may refer him to vision care associate for farther evaluation. 2. Dental care recommended. Ordered: CBC w/ Differential Comprehensive Metabolic Panel Office Visit Level 4 Est 06623 TSH with Reflex Free T4 Orders: omeprazole, 20 mg 1 tabs, Oral, Daily, # 30 tabs, 2 Refill(s), Pharmacy: [facility], 1 tabs Oral Daily
--- OUTSIDE RECORDS SUMMARY | 2018-03-07 11:05 | External Medical Summary | Referral Summary ---
:1970 Author Organization [facility] [place] [address] Care Team Providers Name Role Phone Erich Chester Primary Care Physician Encounter VC Date(s): 10/13/15 - 10/13/15 [facility] [place] [place] [phone] [place] Discharge Diagnosis: Mid back pain Discharge Diagnosis: GERD (gastroesophageal reflux disease) Discharge Disposition: 01-Home or Self Care Attending Physician: Erich Chester DO Admitting Physician: Erich Chester DO Vital Signs Most recent to oldest [Reference Range]: 1 Temperature Tympanic [36.6-38.1 degC] 36 degC *LOW* (10/13/15 9:11 AM) Peripheral Pulse Rate [60-100 bpm] 64 bpm (10/13/15 9:11 AM) Blood Pressure [90-140/60-90 mmHg] 119/80 mmHg (10/13/15 9:11 AM) Problem List Condition Effective Dates Status [...] q24hr, # 2 amp, 0 Refill(s), Pharmacy: [facility], 1,000 mcg SubCutaneous q24hr,x2 doses Start Date: 05/24/15 Stop Date: 05/26/15 Status: Orderedfolic acid 1 mg oral tablet 1 mg 1 tabs, Oral, Daily, 0 Refill(s) Start Date: 05/21/15 Status: Orderedomeprazole 20 mg oral delayed release tablet 20 mg 1 tabs, Oral, Daily, # 30 tabs, 2 Refill(s), Pharmacy: [facility], 1 tabs Oral Daily Start Date: 05/18/15 Status: OrderedOTC Melatonin OTC Melatonin, See Instructions, PRN Sleep, take 2 tablets oral at bedtime, 0 Refill(s) Start Date: 05/19/15 Status: OrderedrisperiDONE 1 mg oral tablet See Instructions, TAKE ONE TABLET BY MOUTH ONCE DAILY AT BEDTIME, # 30 tabs, eRx : [facility], TAKE ONE TABLET [...] smoker Assessment and Plan Extracted from: Title: GERD Author: Erich Chester DO Date: 10/13/15 Assessment/Plan GERD (gastroesophageal reflux disease) 1. history and clinical findings are consistent with poorly controlled acid reflux. 2. Increase omeprazole to 20 mg twice a day. 3. Discontinue drinking soda and carbonated drinks. 4. Diet modification recommended. 5. Discontinue NSAIDs given that this may be causing worsening symptoms. 6. Follow through with scheduled barium swallow study. 7. Follow-up in a month for reevaluation. Ordered: Office Visit Level 4 Est 24466 Mid back pain 1. Discontinue NSAIDs. 2. Consider Tylenol at thousand milligrams every 8 hours as needed. 3. Follow-up for new concerns. Ordered: Office Visit Level 4 Est 05301
--- OUTSIDE RECORDS SUMMARY | 2018-03-07 11:05 | External Medical Summary | Referral Summary ---
:1970 Author Organization [facility] Address [address] [place] [address] [place] [address] Care Team Providers Name Role Phone Erich Chester Primary Care Physician Encounter VC Date(s): 07/19/17 - 07/19/17 [facility] [address] [place] [phone] Discharge Diagnosis: Visit for [facility] health check Discharge Disposition: 01-Home or Self Care Attending Physician: Erich Chester DO Admitting Physician: Erich Chester DO Vital Signs Most recent to oldest [Reference Range]: 1 Temperature Tympanic [36.6-38.1 degC] 36.7 degC (07/19/17 8:26 AM) Peripheral Pulse Rate [60-100 bpm] 82 bpm (07/19/17 8:26 AM) Respiratory Rate [14-20 br/min] 18 br/min (07/19/17 8:26 AM) Blood Pressure [90-140/60-90 mmHg] 120/88 mmHg (07/19/17 8:26 AM) SpO2 95 % (07/19/17 8:26 AM) Problem List Condition Effective Dates Status [...] oral tablet 1 mg 1 tabs, Oral, Bedtime (once a day), Take one tablet by mouth at bedtime., 0 Refill(s) Start Date: 03/05/17 Status: Orderedcyanocobalamin 50 mcg oral tablet 50 mcg 1 tabs, Oral, Daily, # 30 tabs, 0 Refill(s) Start Date: 07/19/17 Status: Orderedcyclobenzaprine 10 mg oral tablet 10 mg 1 tabs, Oral, BID, as needed for spasm, X 30 days, # 60 tabs, 1 Refill(s) , Pharmacy: [facility], 1 tabs Oral BID,x30 days,PRN:as needed for spasm Start Date: 06/18/17 Stop Date: 08/17/17 Status: Orderedfolic acid 1 mg oral tablet 1 mg 1 tabs, Oral, Daily, # 30 tabs, 6 Refill(s), Pharmacy: [facility], 1 tabs Oral Daily,x30 days Start Date: 09/11/16 Stop Date: 04/09/17 Status: OrderedNorvasc 5 mg oral tablet 5 mg 1 tabs, Oral, Daily, # 30 tabs, 3 Refill(s), Pharmacy: [facility], 1 tabs Oral Daily Start Date: 07/13/17 Status: Orderedomeprazole 20 mg oral delayed release capsule 20 mg 1 caps, Oral, BID, # 60 caps, 11 Refill(s), Pharmacy: [facility], 1 caps Oral BID,x30 days Start Date: 10/11/16 Stop Date: 10/06/17 Status: OrderedOTC Melatonin OTC Melatonin, See Instructions, PRN Sleep, take 2 tablets oral at bedtime, 0 Refill(s) Start Date: 05/19/15 Status: OrderedrisperiDONE 1 mg, Take 1 tablet by mouth at bedtime., 0 Refill(s) Start Date: 01/23/17 Status: OrderedToprol-XL 50 mg oral tablet, extended release 50 mg 1 tabs, Oral, Daily, # 30 tabs, 3 Refill(s), Pharmacy: [facility] Start Date: 07/13/17 Status: Ordered Results Hematology Most recent to oldest [Reference Range]: 1 WBC [4.8-10.8 10*3/uL] 5.0 10*3/uL (07/19/17 10:00 AM) RBC [4.60-6.20] 5.22 (07/19/17 10:00 AM) Hgb [14.0-18.0 gm/dL] 14.8 gm/dL (07/19/17 10:00 AM) Hct [42.0-52.0 %] 44.8 % (07/19/17 10:00 AM) MCV [82.0-99.0 fL] 85.8 fL (07/19/17 10:00 AM) MCH [27.0-32.0 pg] 28.4 pg (07/19/17 10:00 AM) MCHC [32.0-36.0 gm/dL] 33.0 gm/dL (07/19/17 10:00 AM) RDW [11.5-14.5 %] 14.2 % (07/19/17 10:00 AM) Platelet [150-400 10*3/uL] 173 10*3/uL (07/19/17 10:00 AM) MPV [8.8-14.8 fL] 9.9 fL (07/19/17 10:00 AM) Immature Granulocytes [0.0-1.0 %] 0.2 % (07/19/17 10:00 AM) Neutrophils [51-75 %] 61 % (07/19/17 10:00 AM) Lymphocytes [20-46 %] 25 % (07/19/17 10:00 AM) Monocytes [4-11 %] 7 % (07/19/17 10:00 AM) Eosinophils [0-4 %] 6 % *HI* (07/19/17 10:00 AM) Basophils [0-2 %] 1 % (07/19/17 10:00 AM) Neutro Absolute [1.90-7.00] 3.04 (07/19/17 10:00 AM) Lymph Absolute [0.80-3.30] 1.24 (07/19/17 10:00 AM) Norton Absolute [0.30-1.00] 0.37 (07/19/17 10:00 AM) Eos Absolute [0.00-0.50] 0.28 (07/19/17 10:00 AM) Baso Absolute [0.00-0.20] 0.06 (07/19/17 10:00 AM) Immunizations Given and Recorded Vaccine Date Status Refusal Reason influenza virus vaccine, inactivated 09/11/16 Given influenza virus vaccine, inactivated 08/25/15 Given influenza virus vaccine, inactivated1 08/28/14 Recorded tetanus/diphth/pertuss (Tdap) adult/adol 12/07/15 Given pneumococcal 13-valent conjugate vaccine 12/07/15 Given influenza virus vaccine, live 07/15/13 Given influenza virus vaccine, live 10/07/12 Given 1Result Comment: [08/28/2014] see scanned document [...] in 10 years or sooner if concerns [id number]- populated from documented surgical [id number] from documented surgical case Social History Social History Type Response Smoking Status Never smoker entered on: 10/01/14 Assessment and Plan Extracted from: Title: Office Visit Note Author: Erich Chester DO Date: 07/19/17 Anemia 1. CBC is pending. Ordered: Periodic Comp Preventive Med 40 to 64 years Est 19652 Visit for well man health check 1. This is a WDWN _46_ yo in relatively good health. 2. Yearly wellness exam recommended. 3. Healthy lifestyle choices recommended. 4. Dental exam every 6 months recommended. 5. Eye exam every 2 yrs recommended. 6. Recommended immunizations are up to date. 7. Screening labs ordered, report is pending. 8. Overgrown finger and toenails were trimmed today. Ordered: Periodic Comp Preventive Med 40 to 64 years Est 56065
--- OUTSIDE RECORDS SUMMARY | 2018-03-07 11:05 | External Medical Summary | Referral Summary ---
:1970 Author Organization [facility] [place] [address] Care Team Providers Name Role Phone Erich Chester Primary Care Physician Encounter VC Date(s): 06/18/15 - 06/18/15 [facility] [place] [address]- Discharge Disposition: 01-Home or Self Care Attending [...] q24hr, # 2 amp, 0 Refill(s), Pharmacy: [facility], 1,000 mcg SubCutaneous q24hr,x2 doses Start Date: 05/24/15 Stop Date: 05/26/15 Status: Orderedfolic acid 1 mg oral tablet 1 mg 1 tabs, Oral, Daily, 0 Refill(s) Start Date: 05/21/15 Status: Orderedomeprazole 20 mg oral delayed release tablet 20 mg 1 tabs, Oral, BID, # 60 tabs, 6 Refill(s), Pharmacy: [facility], 1 tabs Oral BID,x30 days Start Date: 10/15/15 Stop Date: 05/12/16 Status: OrderedOTC Melatonin OTC Melatonin, See Instructions, PRN Sleep, take 2 tablets oral at bedtime, 0 Refill(s) Start Date: 05/19/15 Status: OrderedrisperiDONE 1 mg oral tablet See Instructions, TAKE ONE TABLET BY MOUTH ONCE DAILY AT BEDTIME, # 30 tabs, eRx : [facility], TAKE ONE TABLET BY [...]
--- OUTSIDE RECORDS SUMMARY | 2018-03-07 11:06 | External Medical Summary | Referral Summary ---
:1970 Author Organization [facility] [place] [address] Care Team Providers Name Role Phone Erich Chester Primary Care Physician Encounter VC Date(s): 02/09/16 - 02/09/16 [facility] [place] [address]- Discharge Disposition: 01-Home or Self Care Attending [...] q24hr, # 2 amp, 0 Refill(s), Pharmacy: [facility], 1,000 mcg SubCutaneous q24hr,x2 doses Start Date: 05/24/15 Stop Date: 05/26/15 Status: Orderedfolic acid 1 mg oral tablet 1 mg 1 tabs, Oral, Daily, 0 Refill(s) Start Date: 05/21/15 Status: Orderedomeprazole 20 mg oral delayed release tablet 20 mg 1 tabs, Oral, BID, # 60 tabs, 6 Refill(s), Pharmacy: [facility], 1 tabs Oral BID,x30 days Start Date: 10/15/15 Stop Date: 05/12/16 Status: OrderedOTC Melatonin OTC Melatonin, See Instructions, PRN Sleep, take 2 tablets oral at bedtime, 0 Refill(s) Start Date: 05/19/15 Status: OrderedrisperiDONE 1 mg oral tablet See Instructions, TAKE ONE TABLET BY MOUTH ONCE DAILY AT BEDTIME, # 30 tabs, eRx : [facility], TAKE ONE TABLET BY [...]
--- OUTSIDE RECORDS SUMMARY | 2018-03-07 11:06 | External Medical Summary | Referral Summary ---
:1970 Author Organization [facility] [place] [address] Care Team Providers Name Role Phone Erich Chester Primary Care Physician Encounter VC Date(s): 08/25/15 - 08/25/15 [facility] [place] [phone] [place] Discharge Disposition: [...] q24hr, # 2 amp, 0 Refill(s), Pharmacy: [facility], 1,000 mcg SubCutaneous q24hr,x2 doses Start Date: 05/24/15 Stop Date: 05/26/15 Status: Orderedfolic acid 1 mg oral tablet 1 mg 1 tabs, Oral, Daily, 0 Refill(s) Start Date: 05/21/15 Status: Orderedomeprazole 20 mg oral delayed release tablet 20 mg 1 tabs, Oral, BID, # 60 tabs, 6 Refill(s), Pharmacy: [facility], 1 tabs Oral BID,x30 days Start Date: 10/15/15 Stop Date: 05/12/16 Status: OrderedOTC Melatonin OTC Melatonin, See Instructions, PRN Sleep, take 2 tablets oral at bedtime, 0 Refill(s) Start Date: 05/19/15 Status: OrderedrisperiDONE 1 mg oral tablet See Instructions, TAKE ONE TABLET BY MOUTH ONCE DAILY AT BEDTIME, # 30 tabs, eRx : [facility], TAKE ONE [...] Eye surgery 1996 1auto-populated from documented surgical [id number] from documented surgical case Social History Social History Type Response Smoking Status Never smoker Assessment and Plan No data available for this section
--- OUTSIDE RECORDS SUMMARY | 2018-03-07 11:06 | External Medical Summary | Referral Summary ---
:1970 Author Organization [facility] [place] [address] Care Team Providers Name Role Phone Erich Chester Primary Care Physician Encounter VC Date(s): 09/08/15 - 09/08/15 [facility] [place] [phone] [place] Discharge Diagnosis: Vitamin B 12 deficiency Discharge Diagnosis: Macrocytic anemia Discharge Diagnosis: Esophageal dysphagia Discharge Disposition: 01-Home or Self Care Attending Physician: Erich Chester DO Admitting Physician: Erich Chester DO Vital Signs Most recent to oldest [Reference Range]: 1 Temperature Tympanic [36.6-38.1 degC] 36.7 degC (09/08/15 11:04 AM) Peripheral Pulse Rate [60-100 bpm] 84 bpm (09/08/15 11:04 AM) Blood Pressure [90-140/60-90 mmHg] 118/84 mmHg (09/08/15 11:04 AM) Problem List Condition Effective Dates Status [...] q24hr, # 2 amp, 0 Refill(s), Pharmacy: [facility], 1,000 mcg SubCutaneous q24hr,x2 doses Start Date: 05/24/15 Stop Date: 05/26/15 Status: Orderedfolic acid 1 mg oral tablet 1 mg 1 tabs, Oral, Daily, 0 Refill(s) Start Date: 05/21/15 Status: Orderedibuprofen 800 mg oral tablet 1 tabs, Oral, TID, as needed for pain, # 90 tabs, 0 Refill(s), Pharmacy: [facility], 1 tabs Oral TID,PRN:as needed for pain Start Date: 11/03/14 Status: Orderedomeprazole 20 mg oral delayed release tablet 20 mg 1 tabs, Oral, Daily, # 30 tabs, 2 Refill(s), Pharmacy: [facility], 1 tabs Oral Daily Start Date: 05/18/15 Status: OrderedOTC Melatonin OTC Melatonin, See Instructions, PRN Sleep, take 2 tablets oral at bedtime, 0 Refill(s) Start Date: 05/19/15 Status: OrderedrisperiDONE 1 mg oral tablet See Instructions, TAKE ONE TABLET BY MOUTH ONCE DAILY AT BEDTIME, # 30 tabs, eRx : [facility], TAKE ONE TABLET [...] Visit Note Author: Erich Chester DO Date: 09/08/15 Assessment/Plan Esophageal dysphagia 1. Report from Dr. Hayes was discussed in detail. 2. Esophagram was scheduled at [facility], we will send Dr. Garcia a report when available. 3. Follow-up if worsening symptoms. Ordered: Office Visit Level 4 Est 27124 Macrocytic anemia 1. Continue with recommendations as per reading assistant. 2. Repeat CBC in 3 months. Ordered: Office Visit Level 4 Est 07671 Vitamin B 12 deficiency 1. Continue with B-12 injections. We may consider changing this to oralreplacementafter the next 3 months. 2. Continue with folic acidreplacement. Ordered: Office Visit Level 4 Est 13864
--- OUTSIDE RECORDS SUMMARY | 2018-03-07 11:06 | External Medical Summary | Referral Summary ---
:1970 Author [facility] Address [address] [place] [address] [place] [address] Care Team Providers Name Role Phone Erich Chester Primary Care Physician Encounter VC Date(s): 07/23/17 - 07/23/17 [facility] [place] [phone] [place] Discharge Disposition: 01-Home or Self Care Attending Physician: Erich Chester DO Admitting Physician: Erich Chester DO Problem List Condition Effective Dates Status Health [...] # 60 tabs, 1 Refill(s) , Pharmacy: [facility], 1 tabs Oral BID,x30 days,PRN:as needed for spasm Start Date: 06/18/17 Stop Date: 08/17/17 Status: Orderedfolic acid 1 mg oral tablet 1 mg 1 tabs, Oral, Daily, # 30 tabs, 6 Refill(s), Pharmacy: [facility], 1 tabs Oral Daily,x30 days Start Date: 09/11/16 Stop Date: 04/09/17 Status: OrderedNorvasc 5 mg oral tablet 5 mg 1 tabs, Oral, Daily, # 30 tabs, 3 Refill(s), Pharmacy: [facility], 1 tabs Oral Daily Start Date: 07/13/17 Status: Orderedomeprazole 20 mg oral delayed release capsule 20 mg 1 caps, Oral, BID, # 60 caps, 11 Refill(s), Pharmacy: [facility], 1 caps Oral BID,x30 days [...] Daily, # 30 tabs, 3 Refill(s), Pharmacy: [facility] Start Date: 07/13/17 Status: Ordered Immunizations Given and Recorded Vaccine Date Status [...] in 10 years or sooner if concerns [id number]- populated from documented surgical [id number] from documented surgical case Social History Social History Type Response Smoking Status Never smoker entered on: 10/01/14
--- OUTSIDE RECORDS SUMMARY | 2018-03-07 11:06 | External Medical Summary | Referral Summary ---
:1970 Author Organization [facility] [place] [address] Care Team Providers Name Role Phone Erich Chester Primary Care Physician Encounter VC Date(s): 07/26/15 - 07/26/15 [facility] [place] [phone] [place] Discharge Disposition: [...] q24hr, # 2 amp, 0 Refill(s), Pharmacy: [facility], 1,000 mcg SubCutaneous q24hr,x2 doses Start Date: 05/24/15 Stop Date: 05/26/15 Status: Orderedfolic acid 1 mg oral tablet 1 mg 1 tabs, Oral, Daily, 0 Refill(s) Start Date: 05/21/15 Status: Orderedomeprazole 20 mg oral delayed release tablet 20 mg 1 tabs, Oral, BID, # 60 tabs, 6 Refill(s), Pharmacy: [facility], 1 tabs Oral BID,x30 days Start Date: 10/15/15 Stop Date: 05/12/16 Status: OrderedOTC Melatonin OTC Melatonin, See Instructions, PRN Sleep, take 2 tablets oral at bedtime, 0 Refill(s) Start Date: 05/19/15 Status: OrderedrisperiDONE 1 mg oral tablet See Instructions, TAKE ONE TABLET BY MOUTH ONCE DAILY AT BEDTIME, # 30 tabs, eRx : [facility], TAKE ONE TABLET [...]
--- OUTSIDE RECORDS SUMMARY | 2018-03-07 11:06 | External Medical Summary | Referral Summary ---
:1970 Author Organization [facility] [place] [address] Care Team Providers Name Role Phone Erich Chester Primary Care Physician Encounter VC Date(s): 12/07/15 - 12/07/15 [facility] [place] [phone] [place] Discharge Disposition: [...] q24hr, # 2 amp, 0 Refill(s), Pharmacy: [facility], 1,000 mcg SubCutaneous q24hr,x2 doses Start Date: 05/24/15 Stop Date: 05/26/15 Status: Orderedfolic acid 1 mg oral tablet 1 mg 1 tabs, Oral, Daily, 0 Refill(s) Start Date: 05/21/15 Status: Orderedomeprazole 20 mg oral delayed release tablet 20 mg 1 tabs, Oral, BID, # 60 tabs, 6 Refill(s), Pharmacy: [facility], 1 tabs Oral BID,x30 days Start Date: 10/15/15 Stop Date: 05/12/16 Status: OrderedOTC Melatonin OTC Melatonin, See Instructions, PRN Sleep, take 2 tablets oral at bedtime, 0 Refill(s) Start Date: 05/19/15 Status: OrderedrisperiDONE 1 mg oral tablet See Instructions, TAKE ONE TABLET BY MOUTH ONCE DAILY AT BEDTIME, # 30 tabs, eRx : [facility], TAKE ONE TABLET [...]
--- OUTSIDE RECORDS SUMMARY | 2018-03-07 11:06 | External Medical Summary | Referral Summary ---
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 Discharge Disposition: 01-Home or Self Care Attending Physician: Erich Chester DO Admitting Physician: Erich Chester DO Vital Signs Most recent to oldest [Reference Range]: 1 Temperature Tympanic [36.6-38.1 degC] 36.1 degC *LOW* (06/18/15 8:38 AM) Peripheral Pulse Rate [60-100 bpm] 72 bpm (06/18/15 8:38 AM) Blood Pressure [90-140/60-90 mmHg] 117/74 mmHg (06/18/15 8:38 AM) Problem List Condition Effective Dates Status [...] q24hr, # 2 amp, 0 Refill(s), Pharmacy: [facility], 1,000 mcg SubCutaneous q24hr,x2 doses Start Date: 05/24/15 Stop Date: 05/26/15 Status: Orderedfolic acid 1 mg oral tablet 1 mg 1 tabs, Oral, Daily, 0 Refill(s) Start Date: 05/21/15 Status: Orderedomeprazole 20 mg oral delayed release tablet 20 mg 1 tabs, Oral, BID, # 60 tabs, 6 Refill(s), Pharmacy: [facility], 1 tabs Oral BID,x30 days Start Date: 10/15/15 Stop Date: 05/12/16 Status: OrderedOTC Melatonin OTC Melatonin, See Instructions, PRN Sleep, take 2 tablets oral at bedtime, 0 Refill(s) Start Date: 05/19/15 Status: OrderedrisperiDONE 1 mg oral tablet See Instructions, TAKE ONE TABLET BY MOUTH ONCE DAILY AT BEDTIME, # 30 tabs, eRx : [facility], TAKE ONE TABLET BY [...] Procedure Date Related Diagnosis Body Site Excision, malignant lesion including margins, 06/18/15 face, ears, eyelids, nose, lips; excised diameter 1.1 to 2.0 cm Eye surgery 1996 Social History Social History Type Response Smoking Status Never smoker Assessment and Plan Extracted from: Title: Office Visit Note Author: Erich Chester DO Date: 06/18/15 Assessment/Plan B12 vitamin deficiency Given to day Ordered: cyanocobalamin, 1,000 mcg, IntraMuscular, qMonth, First Dose: 06/18/15 10:00: 00 CDT Office Visit Level 3 Est 61270 Microcytic anemia Pathophysiology of this presentation, and differential diagnosis, discussed in detail with the patient and his clinical case manager. All questions were answered. 1. Continue with B-12 injection as recommended per the shuttle repairer. 2. Follow-up with shuttle repairer at his scheduled appointment. Ordered: Office Visit Level 3 Est 14538 Squamous cell carcinoma in situ Pathophysiology of this presentation discussed in detail with the patient and clinical case manager. All questions were answered. 1. Recommended reexcision to which patient agreed. Procedure: Excision of squamous cell carcinoma Indication: Malignant skin lesion Location: Proximal left zygomatic arch Medication: One percent lidocaine with epinephrine Pathology: Tissue sample of 1.5 cm sent to pathology, suture tag at 12:00 position. Description: With the patient laid in the supine position, the area for excision was cleansed, demarcated and sterile field created. Using one percent lidocaine with epinephrine, local anesthesia was achieved. Elliptical excision of 1.5 cm x 3/4 cmwas made with a 15 blade scalpel, tissue was tag at 12:00 position and sent to pathology for review. Undermining of the margins was then for good approximation. Margins were approximated using 5-0 Prolene in a running suture manner. Hemostasis was assured, dry dressing applied and wound care instructions provided. Follow-up in 5-7 days for suture removal. Ordered: Office Visit Level 3 Est 98287
--- OUTSIDE RECORDS SUMMARY | 2018-03-07 11:06 | External Medical Summary | Referral Summary ---
:1970 Author Organization [facility] [place] [address] Care Team Providers Name Role Phone Erich Chester Primary Care Physician Encounter VC Date(s): 11/02/15 - 11/02/15 [facility] [place] [address] [place] Discharge Disposition: [...] q24hr, # 2 amp, 0 Refill(s), Pharmacy: [facility], 1,000 mcg SubCutaneous q24hr,x2 doses Start Date: 05/24/15 Stop Date: 05/26/15 Status: Orderedfolic acid 1 mg oral tablet 1 mg 1 tabs, Oral, Daily, 0 Refill(s) Start Date: 05/21/15 Status: Orderedomeprazole 20 mg oral delayed release tablet 20 mg 1 tabs, Oral, BID, # 60 tabs, 6 Refill(s), Pharmacy: [facility], 1 tabs Oral BID,x30 days Start Date: 10/15/15 Stop Date: 05/12/16 Status: OrderedOTC Melatonin OTC Melatonin, See Instructions, PRN Sleep, take 2 tablets oral at bedtime, 0 Refill(s) Start Date: 05/19/15 Status: OrderedrisperiDONE 1 mg oral tablet See Instructions, TAKE ONE TABLET BY MOUTH ONCE DAILY AT BEDTIME, # 30 tabs, eRx : [facility], TAKE ONE TABLET [...]
--- OUTSIDE RECORDS SUMMARY | 2018-03-07 11:06 | External Medical Summary | Referral Summary ---
:1970 Author Organization [facility] [place] [address] Care Team Providers Name Role Phone Erich Chester Primary Care Physician Encounter VC Date(s): 04/05/17 - 04/05/17 [facility] [place] [phone] [place] Discharge Diagnosis: Chronic mid back pain Discharge Diagnosis: Back muscle spasm Discharge Disposition: 01-Home or Self Care Attending Physician: Erich Chester DO Admitting Physician: Erich Chester DO Vital Signs Most recent to oldest [Reference Range]: 1 Temperature Tympanic [36.6-38.1 degC] 36.8 degC (04/05/17 10:16 AM) Peripheral Pulse Rate [60-100 bpm] 67 bpm (04/05/17 10:16 AM) Respiratory Rate [14-20 br/min] 18 br/min (04/05/17 10:16 AM) Blood Pressure [90-140/60-90 mmHg] 98/68 mmHg (04/05/17 10:16 AM) SpO2 97 % (04/05/17 10:16 AM) Problem List Condition Effective Dates Status [...] BID, 0 Refill(s) Start Date: 03/05/17 Status: Orderedcyclobenzaprine 10 mg oral tablet 10 mg 1 tabs, Oral, BID, as needed for spasm, X 30 days, # 60 tabs, 0 Refill(s) , Pharmacy: [facility], 1 tabs Oral BID,x30 days,PRN:as needed for spasm Start Date: 03/29/17 Stop Date: 04/28/17 Status: Orderedfolic acid 1 mg oral tablet 1 mg 1 tabs, Oral, Daily, # 30 tabs, 6 Refill(s), Pharmacy: [facility], 1 tabs Oral Daily,x30 days Start Date: 09/11/16 Stop Date: 04/09/17 Status: Orderedmetoprolol succinate 25 mg oral tablet, extended release mg tabs, Oral, Daily, 0 Refill(s) Start Date: 01/23/17 Status: OrderedNorvasc 5 mg oral tablet 5 mg 1 tabs, Oral, Daily, # 30 tabs, 3 Refill(s), Pharmacy: [facility], 1 tabs Oral Daily Start Date: 04/05/17 Status: Orderedomeprazole 20 mg oral delayed release capsule 20 mg 1 caps, Oral, BID, # 60 caps, 11 Refill(s), Pharmacy: [facility], 1 caps Oral BID,x30 days Start Date: 10/11/16 Stop Date: 10/06/17 Status: Orderedomeprazole 20 mg oral delayed release capsule See Instructions, TAKE ONE CAPSULE BY MOUTH ONCE DAILY, # 30 caps, eRx: [facility], TAKEONE CAPSULE BY MOUTH ONCE DAILY Start Date: 03/06/17 Status: OrderedOTC Melatonin OTC Melatonin, See Instructions, PRN Sleep, take 2 tablets oral at bedtime, 0 Refill(s) Start Date: 05/19/15 Status: OrderedrisperiDONE 0 Refill(s) Start Date: 01/23/17 Status: OrderedToprol-XL 50 mg oral tablet, extended release 50 mg 1 tabs, Oral, Daily, # 30 tabs, 3 Refill(s), Pharmacy: [facility] Start Date: 04/05/17 Status: OrderedtraZODone Oral, [...] in 10 years or sooner if concerns [id number]- populated from documented surgical [id number] from documented surgical case Social History Social History Type Response Smoking Status Never smoker Assessment and Plan Extracted from: Title: Office Visit Note Author: Erich Chester DO Date: 04/05/17 Assessment/Plan 1.Chronic mid back pain 1. This appears to be muscular in nature. 2. We will refer him to PT if he has medical coverage and has a ride to get there. His business case analyst will look into coverage and coordination of the above recommendations. Ordered: Office Visit Level 3 Est 82670 2.Back muscle spasm 1. As above. 2. We will stop the muscle relaxer since it does not seem to be making any difference. Ordered: Office Visit Level 3 Est 77912
--- OUTSIDE RECORDS SUMMARY | 2018-03-07 11:06 | External Medical Summary | Referral Summary ---
:1970 Author Organization [facility] [address] [place] [phone] Care Team Providers Name Role Phone Erich Chester Primary Care Physician Encounter VC Date(s): 03/05/17 - 03/05/17 [facility] [place] [place] [phone] [place] Discharge Diagnosis: Muscle spasm Discharge Disposition: 01-Home or Self Care Attending Physician: Erich Chester DO Admitting Physician: Erich Chester DO Vital Signs Most recent to oldest [Reference Range]: 1 Temperature Tympanic [36.6-38.1 degC] 36.2 degC *LOW* (03/05/17 9:43 AM) Peripheral Pulse Rate [60-100 bpm] 71 bpm (03/05/17 9:43 AM) Respiratory Rate [14-20 br/min] 18 br/min (03/05/17 9:43 AM) Blood Pressure [90-140/60-90 mmHg] 110/62 mmHg (03/05/17 9:43 AM) SpO2 97 % (03/05/17 9:43 AM) Problem List Condition Effective Dates Status [...] # 60 tabs, 0 Refill(s) , Pharmacy: [id number], 1 tabs Oral BID,x30 days,PRN:as needed for spasm Start Date: 03/05/17 Stop Date: 04/04/17 Status: Orderedfolic acid 1 mg oral tablet 1 mg 1 tabs, Oral, Daily, # 30 tabs, 6 Refill(s), Pharmacy: [id number], 1 tabs Oral Daily,x30 days Start Date: 09/11/16 Stop Date: 04/09/17 Status: Orderedmetoprolol succinate 25 mg oral tablet, extended release mg tabs, Oral, Daily, 0 Refill(s) Start Date: 01/23/17 Status: OrderedNorvasc 5 mg oral tablet 5 mg 1 tabs, Oral, Daily, # 30 tabs, 0 Refill(s), Pharmacy: [id number], 1 tabs Oral Daily Start Date: 03/02/17 Status: Orderedomeprazole 20 mg oral delayed release capsule 20 mg 1 caps, Oral, BID, # 60 caps, 11 Refill(s), Pharmacy: [facility], 1 caps Oral BID,x30 days Start Date: 10/11/16 Stop Date: 10/06/17 Status: OrderedOTC Melatonin OTC Melatonin, See Instructions, PRN Sleep, take 2 tablets oral at bedtime, 0 Refill(s) Start Date: 05/19/15 Status: OrderedrisperiDONE 0 Refill(s) Start Date: 01/23/17 Status: OrderedToprol-XL 50 mg oral tablet, extended release 50 mg 1 tabs, Oral, Daily, # 30 tabs, 0 Refill(s), Pharmacy: [place] [id number] Start Date: 03/02/17 Status: OrderedtraZODone Oral, 0 Refill(s) Start Date: [...] in 10 years or sooner if concerns [id number] populated from documented surgical [id number] from documented surgical case Social History Social History Type Response Smoking Status Never smoker Assessment and Plan Extracted from: Title: Office Visit Note Author: Erich Chester DO Date: 03/05/17 Assessment/Plan Muscle spasm 1. Stretching exercises recommended. 2. Discontinue Baclofen. 3. Flexeril 10mg bid. 4. Follow up in a month for reevaluation. Ordered: cyclobenzaprine, 10 mg 1 tabs, Oral, BID, as needed for spasm, X 30 days, # 60 tabs, 0 Refill(s), Pharmacy: [id number], 1 tabs Oral BID,x30 days,PRN:as needed for spasm Office Visit Level 4 Est [id number]
--- OUTSIDE RECORDS SUMMARY | 2018-03-07 11:07 | External Medical Summary | Continuity of Care Document ---
:1970 Author Organization [facility] Allergies Active Description Code Type Severity Reaction Onset Reported/ Identified Relationship Clinical to Patient Status Yes No Known NKMA N/A N/A 08/25/2014 Medication Allergies Yes No Known NKMA N/A N/A 08/25/2014 Medication Allergies Yes No Known Drug Unknown N/A 05/02/2016 Drug Allergy Aller gy Yes No Known Drug Unknown N/A 05/02/2016 Drug Aller Category gy Allergy Yes No Known Envir Unknown N/A 05/02/2016 Environment onmen Allergy manuel Aller gy Yes No Known Food Unknown N/A 05/02/2016 Food Allergy Aller gy Yes No Known No Aller N/A N/A 12/15/2016 Allergies Known gy Aller gies Yes No Known No Aller Unknown N/A 03/07/2018 Drug Known gy Allergies Drug Aller gies Medications Medication Packaging Start Stop Route Dosage Sig Date Date 1 tabs 08/28/20 Oral 0.5 mg risperiDONE(RisperDA 4 14 1 tabs, L 0.5 mg oral Oral, tablet) Daily, by oral route every day. 1 tabs 12/14/19 Oral 2 mg tiZANidine(tiZANidin 4 15 1 tabs, e 2 mg oral tablet) Oral, BID, 60 tabs 1 tabs 09/21/20 Oral 1 mg risperiDONE(RisperDA 4 14 1 tabs, L 1 mg oral tablet) Oral, Daily, 60 tabs 1 tabs 08/06/20 Oral 1 mg risperiDONE(RisperDA 4 15 1 tabs, L 1 mg oral tablet) Oral, Bedtime (once a day), 30 tabs 1 tabs 10/13/20 Oral 800 mg ibuprofen(ibuprofen 5 15 1 tabs, 800 mg oral tablet) Oral, TID, 90 tabs, PRN: as needed for pain 1 tabs 09/11/20 Oral 50 mg traZODone(traZODone 5 16 50 mg=1 50 mg oral tablet) tabs, Oral, Bedtime (once a day), 0 Refill(s) 1 tabs 10/15/20 Oral 20 mg omeprazole(omeprazol 5 15 20 mg=1 e 20 mg oral delayed tabs, release tablet) Oral, Daily, 30 tabs, 2 Refill(s) 1 drops Eye-Right tetrahydrozoline 5 1 drops, ophthalmic(Visine) Eye-Right, Daily, 0 Refill(s) 1 tabs 05/21/20 Oral 40 mg pantoprazole(Protoni 5 15 40 mg=1 x) tabs, Oral, Daily 1 tabs 05/21/20 Oral 1 mg risperiDONE(RisperDA 5 15 1 mg=1 L) tabs, Oral, Bedtime (once a day) 1 tabs 05/21/20 Oral 50 mg traZODone(traZODone) 5 15 50 mg=1 tabs, Oral, Bedtime (once a day) folic 1 tabs 05/21/20 Oral 1 mg acid(folic acid) 5 15 1 mg=1 tabs, Oral, Daily 2 tabs 05/20/20 Oral 40 mEq potassium 5 15 40 mEq=2 chloride(potassium tabs, chloride 20 mEq oral Oral, Once tablet, extended release) 1 tabs 05/20/20 Oral 25 mg diphenhydrAMINE(diph 5 15 25 mg=1 enhydrAMINE) tabs, Oral, Once Sodium 1,000 mL 05/21/20 IV Chloride 5 15 20 mL/hr, 0.9%(Sodium IV Chloride 0.9% 1,000 mL) 2 tabs 05/20/20 Oral 650 mg acetaminophen(acetam 5 15 650 mg=2 inophen) tabs, Oral, Once 2 tabs 05/21/20 Oral 40 mEq potassium 5 15 40 mEq=2 chloride(potassium tabs, chloride 20 mEq oral Oral, tablet, extended BIDWM release) folic 1 tabs 09/11/20 Oral 1 mg acid(folic acid 1 mg 5 16 1 mg=1 oral tablet) tabs, Oral, Daily, 0 Refill(s) 1 tabs 07/01/20 Oral 20 mEq potassium 5 15 20 mEq=1 chloride(potassium tabs, chloride 20 mEq oral Oral, BID, tablet, extended 60 tabs, 0 release) Refill(s) 06/05/20 IntraMuscular 1,000 mcg cyanocobalamin(cyano 5 15 1,000 cobalamin 1000 mcg, mcg/mL injectable IntraMuscu solution) lar, qMonth 06/11/20 IntraMuscular 1,000 mcg cyanocobalamin(cyano 5 15 1,000 cobalamin 1000 mcg, mcg/mL injectable IntraMuscu solution) lar, Once 06/19/20 IntraMuscular 1,000 mcg cyanocobalamin(cyano 5 15 1,000 cobalamin 1000 mcg, mcg/mL injectable IntraMuscu solution) lar, qMonth 06/25/20 IntraMuscular 1,000 mcg cyanocobalamin(cyano 5 15 1,000 cobalamin 1000 mcg, mcg/mL injectable IntraMuscu solution) lar, Once 07/27/20 IntraMuscular 1,000 mcg cyanocobalamin(cyano 5 15 1,000 cobalamin 1000 mcg, mcg/mL injectable IntraMuscu solution) lar, qMonth 01/10/20 risperiDONE(risperiD 5 17 See ONE 1 mg oral Instructio tablet) ns, TAKE ONE TABLET BY MOUTH ONCE DAILY AT BEDTIME, 30 tabs 09/08/20 omeprazole(omeprazol 5 15 See e 20 mg oral delayed Instructio release tablet) ns, 1 tabs Oral Daily, 30 tabs 08/26/20 IntraMuscular 1,000 mcg cyanocobalamin(cyano 5 15 1,000 cobalamin 1000 mcg, mcg/mL injectable IntraMuscu solution) lar, qMonth 0.5 mL 08/25/20 IntraMuscular influenza virus 5 15 0.5 mL, vaccine, IntraMuscu inactivated(influenz lar, Once a virus vaccine, inactivated) 09/28/20 IntraMuscular 1,000 mcg cyanocobalamin(cyano 5 15 1,000 cobalamin 1000 mcg, mcg/mL injectable IntraMuscu solution) lar, Once 1 tabs 07/06/20 Oral 20 mg omeprazole(omeprazol 5 16 20 mg=1 e 20 mg oral delayed tabs, release tablet) Oral, BID, for 30 days, 60 tabs, 6 Refill(s) 11/02/19 IntraMuscular 1,000 mcg cyanocobalamin(cyano 6 16 1,000 cobalamin 1000 mcg, mcg/mL injectable IntraMuscu solution) lar, Once 0.5 mL 12/07/19 IntraMuscular pneumococcal 6 16 0.5 mL, 13-valent conjugate IntraMuscu vaccine(pneumococcal lar, Once 13-valent conjugate vaccine) 0.5 mL 12/07/19 IntraMuscular tetanus/diphth/pertu 6 16 0.5 mL, ss (Tdap) IntraMuscu adult/adol(Tdap lar, Once Injection) 12/07/19 IntraMuscular 1,000 mcg cyanocobalamin(cyano 6 16 1,000 cobalamin 1000 mcg, mcg/mL injectable IntraMuscu solution) lar, Once 1 mL 12/01/19 IntraMuscular 1,000 mcg cyanocobalamin(cyano 6 17 1,000 cobalamin 1000 mcg=1 mL, mcg/mL injectable IntraMuscu solution) lar, qMonth, for 365 days, 13 mL, 0 Refill(s) 01/06/20 IntraMuscular 1,000 mcg cyanocobalamin(cyano 6 16 1,000 cobalamin 1000 mcg, mcg/mL injectable IntraMuscu solution) lar, qMonth 02/10/20 IntraMuscular 1,000 mcg cyanocobalamin(cyano 6 16 1,000 cobalamin 1000 mcg, mcg/mL injectable IntraMuscu solution) lar, qMonth Lactated 1,000 mL 02/16/20 IV Ringers 6 16 10 mL/hr, Injection(Lactated IV Ringers 1,000 mL) 03/09/20 IntraMuscular 1,000 mcg cyanocobalamin(cyano 6 16 1,000 cobalamin 1000 mcg, mcg/mL injectable IntraMuscu solution) lar, qMonth Vitamin 1,000 B-12 1,000 mcg/mL 6 mcg/mL take 1 injection solution (one) every month 1 mg RisperDAL 1 mg 6 take 1 tablet (one) Tablet by Oral route daily Tablet 50 mg traZODone 50 mg 6 take 1 or tablet 2 (one or two) Tablet by Oral route at bedtime as needed folic 1 mg acid 1 mg tablet 6 take 1 (one) Tablet by Oral route daily 20 mg omeprazole 20 mg 6 take 1 tablet,delayed (one) by release Oral route daily 10/11/20 omeprazole(omeprazol 6 16 See e 20 mg oral delayed Instructio release capsule) ns, TAKE ONE CAPSULE BY MOUTH TWICE DAILY FOR 30 DAYS, 60 caps, 2 Refill(s) 0.5 mL 09/11/20 IntraMuscular influenza virus 6 16 0.5 mL, vaccine, IntraMuscu inactivated(influenz lar, Once a virus vaccine, inactivated) folic 1 tabs 04/09/20 Oral 1 mg acid(folic acid 1 mg 6 17 1 mg=1 oral tablet) tabs, Oral, Daily, for 30 days, 30 tabs, 6 Refill(s) 1 caps 10/11/20 Oral 50 mg nortriptyline(nortri 6 16 50 mg=1 ptyline 50 mg oral caps, capsule) Oral, BID, for 30 days, 60 caps, 0 Refill(s) 1 caps 10/06/20 Oral 20 mg omeprazole(omeprazol 6 17 20 mg=1 e 20 mg oral delayed caps, release capsule) Oral, BID, for 30 days, 60 caps, 11 Refill(s) 1 caps 01/10/20 Oral 50 mg nortriptyline(nortri 6 17 50 mg=1 ptyline 50 mg oral caps, capsule) Oral, BID, for 30 days, 60 caps, 6 Refill(s) 1 tabs 12/01/19 Oral 50 mg traMADol(Ultram 50 7 17 50 mg=1 mg oral tablet) tabs, Oral, q6hr, PRN: as needed for pain, 30 tabs, 0 Refill(s) 1 tabs 11/15/19 Oral 500 mg naproxen(Naprosyn 7 17 500 mg=1 500 mg oral tablet) tabs, Oral, BID, for 15 days, 30 tabs, 0 Refill(s) 1 tabs 12/30/19 Oral 500 mg naproxen(naproxen 7 17 500 mg=1 500 mg oral tablet) tabs, Oral, BID, 60 tabs, 1 Refill(s) RIGHT EYE 15 ml Tetrahydrozoline HCl 7 QD G 17 Polyethylene Glycol 7 DAILY 3350 DROP 1 Tetrahydrozoline HCl 7 QD TAB 2 Sennosides/Docusate 7 BID Sodium MG 50 Trazodone HCl 7 BID Folic MG 1 Acid 7 DAILY MG 10 Bisacodyl 7 DAILY MG 650 Acetaminophen 7 Q5H MG 20 Omeprazole 7 BID MG 1 Risperidone 7 HS GM 20 Lactulose 7 TID MG 0.4 Tamsulosin HCl 7 HS ML 30 Magnesium Hydroxide 7 DAILY Amox MG 875 Tr/Potassium 7 BIDWM Clavulanate MG 50 Nortriptyline HCl 7 BID Naproxen MG 500 7 BID MG 40 Enoxaparin Sodium 7 DAILY G 17 Polyethylene Glycol 7 BID. 3350 DROP 1 Tetrahydrozoline HCl 7 QD TAB 2 Sennosides/Docusate 7 BID Sodium MG 50 Trazodone HCl 7 BID Folic MG 1 Acid 7 DAILY MG 10 Bisacodyl 7 DAILY MG 650 Acetaminophen 7 Q5H MG 20 Omeprazole 7 BID MG 1 Risperidone 7 HS MG 50 Metoprolol Succinate 7 DAILY GM 20 Lactulose 7 TID MG 0.4 Tamsulosin HCl 7 HS ML 30 Magnesium Hydroxide 7 DAILY Amox MG 875 Tr/Potassium 7 BIDWM Clavulanate MG 50 Nortriptyline HCl 7 BID Naproxen MG 500 7 BID MG 5 Amlodipine Besylate 7 DAILY G 17 Polyethylene Glycol 7 BID. 3350 DROP 1 Tetrahydrozoline HCl 7 QD Folic MG 1 Acid 7 DAILY MG 10 Bisacodyl 7 DAILY MG 650 Acetaminophen 7 Q5H MG 20 Omeprazole 7 BID MG 50 Metoprolol Succinate 7 DAILY MG 0.4 Tamsulosin HCl 7 HS ML 30 Magnesium Hydroxide 7 DAILY Norvasc MG PO 5 mg 7 DAILY 1 mL 01/24/20 IntraMuscular 1,000 mcg cyanocobalamin(cyano 7 17 1,000 cobalamin 1000 mcg=1 mL, mcg/mL injectable IntraMuscu solution) lar, qMonth, for 365 days, 13 mL, 0 Refill(s) Oral traZODone(traZODone) 7 Oral, 0 Refill(s) risperiDONE(risperiD 7 0 ONE) Refill(s) tabs Oral mg metoprolol(metoprolo 7 mg=tabs, l succinate 25 mg Oral, oral tablet, Daily, 0 extended release) Refill(s) 1 tabs 02/17/20 Oral 10 mg baclofen(baclofen 10 7 17 10 mg=1 mg oral tablet) tabs, Oral, BID, for 30 days, 60 tabs, 0 Refill(s) 1 tabs Oral 1 mg benztropine(benztrop 7 1 mg=1 ine 1 mg oral tabs, tablet) Oral, BID, 0 Refill(s) 1 tabs 03/29/20 Oral 10 mg cyclobenzaprine(cycl 7 17 10 mg=1 obenzaprine 10 mg tabs, oral tablet) Oral, BID, for 30 days, PRN: as needed for spasm, 60 tabs, 0 Refill(s) omeprazole(omeprazol 7 See e 20 mg oral delayed Instructio release capsule) ns, TAKE ONE CAPSULE BY MOUTH ONCE DAILY, 30 caps 1 tabs 04/28/20 Oral 10 mg cyclobenzaprine(cycl 7 17 10 mg=1 obenzaprine 10 mg tabs, oral tablet) Oral, BID, for 30 days, PRN: as needed for spasm, 60 tabs, 0 Refill(s) 1 tabs Oral 5 mg amLODIPine(Norvasc 5 7 5 mg=1 mg oral tablet) tabs, Oral, Daily, 30 tabs, 3 Refill(s) 1 tabs Oral 50 mg metoprolol(Toprol-XL 7 50 mg=1 50 mg oral tablet, tabs, extended release) Oral, Daily, 30 tabs, 3 Refill(s) 1 tabs 06/08/20 Oral 800 mg ibuprofen(ibuprofen 7 17 800 mg=1 800 mg oral tablet) tabs, Oral, BID, for 30 days, PRN: as needed for pain, 60 tabs, 0 Refill(s) 1 tabs 08/06/20 Oral 10 mg cyclobenzaprine(cycl 7 17 10 mg=1 obenzaprine 10 mg tabs, oral tablet) Oral, BID, for 30 days, PRN: as needed for spasm, 60 tabs, 1 Refill(s) 1 tabs 08/17/20 Oral 10 mg cyclobenzaprine(cycl 7 17 10 mg=1 obenzaprine 10 mg tabs, oral tablet) Oral, BID, for 30 days, PRN: as needed for spasm, 60 tabs, 1 Refill(s) 1 tabs Oral 50 mg metoprolol(Toprol-XL 7 50 mg=1 50 mg oral tablet, tabs, extended release) Oral, Daily, 30 tabs, 3 Refill(s) 1 tabs Oral 5 mg amLODIPine(Norvasc 5 7 5 mg=1 mg oral tablet) tabs, Oral, Daily, 30 tabs, 3 Refill(s) 1 tabs Oral 50 mcg cyanocobalamin(cyano 7 50 mcg=1 cobalamin 50 mcg tabs, oral tablet) Oral, Daily, 30 tabs, 0 Refill(s) Problems Date Dx Attending Type Code Diagnosis Diagnosed By Coded 05/27/2015 Alvino SHANKAR, Oscar Final 276.8 HYPOPOTASSEMIA 05/27/2015 Alvino SHANKAR, Oscar Final 281.3 OTHER SPECIFIED MEGALOBLASTIC ANEMIAS, NOT ELSEWHERE CLASSIFIED 05/27/2015 Alvino SHANKAR, Oscar Final 284.19 Other Pancytopenia 05/27/2015 Alvino SHANKAR, Oscar Admitting 285.9 ANEMIA, UNSPECIFIED 05/27/2015 Alvino SHANKAR, Oscar Final 297.1 Delusional disorder 05/27/2015 Alvino SHANKAR, Oscar Final 530.0 ACHALASIA AND CARDIOSPASM 05/27/2015 Alvino SHANKAR, Oscar Final V62.89 OTHER PSYCHOLOGICAL OR PHYSICAL STRESS, NOT ELSEWHERE CLASSIFIED 02/22/2016 Final E66.9 Obesity, unspecified 02/22/2016 Final G43.909 Migraine, unspecified, not intractable, without status migrainosus 02/22/2016 Final I10 Essential (primary) hypertension 02/22/2016 Final K31.7 Polyp of stomach and duodenum 02/22/2016 Final R13.10 Dysphagia, unspecified 02/22/2016 Reason R93.3 Abnormal findings on diagnostic imaging of other parts of digestive tract 03/14/2016 Erich Chester Final K59.00 Constipation, unspecified 03/14/2016 Erich Chester Final K59.01 Slow transit constipation 05/03/2016 Mike Jacob R07.89 Other chest pain Mike Jacob S 09/11/2016 Erich Chester Final D51.0 Vitamin B12 deficiency anemia due to intrinsic factor deficiency 09/11/2016 Erich Chester Final G54.3 Thoracic root disorders, not elsewhere classified 09/11/2016 Erich Chester Final G54.9 Nerve root and plexus disorder, unspecified 09/11/2016 Erich Chester Final K21.9 Gastro-esophageal reflux disease without esophagitis 09/11/2016 Erich Chester Final M54.6 Pain in thoracic spine 10/11/2016 Erich Chester Final K21.9 Gastro-esophageal reflux disease without esophagitis 10/11/2016 Erich Chester Final M54.9 Dorsalgia, unspecified 10/31/2016 Erich Chester Final R07.81 Pleurodynia 12/01/2016 TecErich gutierrez Final G89.29 Other chronic pain 12/01/2016 Erich Chester Final M25.531 Pain in right wrist 12/18/2016 WALLY RAM, D64.9 ANEMIA, UNSPECIFIED DL C 12/18/2016 WALLY RAM, G93.40 ENCEPHALOPATHY, DL C UNSPECIFIED 12/18/2016 WALLY RAM, G93.89 OTHER SPECIFIED DL C DISORDERS OF BRAIN 12/18/2016 WALLY RAM, K56.7 ILEUS, UNSPECIFIED DL C 12/18/2016 WALLY RAM, N30.00 ACUTE CYSTITIS DL C WITHOUT HEMATURIA 12/18/2016 WALLY RAM, R53.1 WEAKNESS DL C 12/18/2016 WALLY RAM, S06.9X0S UNSP INTRACRANIAL DL C INJURY W/O LOSS OF CONSCIOUSNESS, SEQUELA 12/18/2016 WALLY RAM, X58.XXXS EXPOSURE TO OTHER DL C SPECIFIED FACTORS, SEQUELA 12/20/2016 HEDY SHANKAR, E87.1 HYPO-OSMOLALITY AND REGINALD E HYPONATREMIA 12/20/2016 HEDY SHANKAR, G93.40 ENCEPHALOPATHY, REGINALD E UNSPECIFIED 12/20/2016 HEDY SHANKAR, G93.89 OTHER SPECIFIED REGINALD E DISORDERS OF BRAIN 12/20/2016 HEDY SHANKAR, K56.7 ILEUS, UNSPECIFIED REGINALD E 12/20/2016 HEDY SHANKAR, N39.0 URINARY TRACT REGINALD E INFECTION, SITE NOT SPECIFIED 12/20/2016 HEDY SHANKAR, R07.9 CHEST PAIN, REGINALD E UNSPECIFIED 12/20/2016 HEDY SHANKAR, R53.1 WEAKNESS REGINALD E 12/20/2016 HEDY SHANKAR, S06.9X0S UNSP INTRACRANIAL REGINALD E INJURY W/O LOSS OF CONSCIOUSNESS, SEQUELA 12/20/2016 HEDY SHANKAR, X58.XXXS EXPOSURE TO OTHER REGINALD E SPECIFIED FACTORS, SEQUELA 12/20/2016 HEDY SHANKAR, 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), AND CEREB INFRC W/O RESID DEFICITS 01/09/2017 Erich Chester Final D51.0 Vitamin B12 deficiency anemia due to intrinsic factor deficiency 01/09/2017 Erich Chester Final K59.09 Other constipation 01/09/2017 Erich Chestre Final Z09 Encounter for follow-up examination after completed treatment for conditions other than malignant neoplasm 01/23/2017 Erich Chester Final E63.9 Nutritional deficiency, unspecified 01/23/2017 TecErich gutierrez Final K59.04 Chronic idiopathic constipation 01/23/2017 TecErich gutierrez Final M62.838 Other muscle spasm 01/23/2017 Erich Chester Final M62.830 Muscle spasm of back 01/23/2017 Erich Chester Final K59.09 Other constipation 01/23/2017 Erich Chester Final Z79.899 Other care home (current) drug therapy 03/05/2017 TecErich gutierrez Final M62.838 Other muscle spasm 04/05/2017 TecErich gutierrez Final M54.6 Pain in thoracic spine 04/05/2017 Erich Chester Final M62.830 Muscle spasm of back 05/09/2017 Erich Chester Final M79.672 Pain in left foot 05/09/2017 Erich Chester Final S92.355A Nondisplaced fracture of fifth metatarsal bone, left foot, initial encounter for closed fracture 05/23/2017 Erich Chester Final M79.672 Pain in left foot 07/19/2017 Erich Chester Final Z00.00 Encounter for general adult medical examination without abnormal findings Procedures Code Description [place] [address] 02/16/2016 Esophagogastroduodenoscopy , flexible, transoral; with biopsy, single [place] mul 00603 Therapeutic, 03/08/2016 prophylactic, or diagnostic injection (specify substance or drug); subcutaneous or intramuscular 53659 Office or 03/08/2016 other outpatient visit for the evaluation and management of an established patient, which requires at least 2 of these 3 [place] components: A detailed history; A detailed examination; Medical d 53574 Office or 03/14/2016 other outpatient visit for the evaluation and management of an established patient, which requires at least 2 of these 3 [place] components: An expanded problem focused history; An expanded prob [id number] New Patient Mike Jacob 05/03/2016 Detailed 42363 New Patient Mike Jacob 06/01/2016 Detailed 95046 Office or 06/09/2016 other outpatient visit for the evaluation and management of an established patient, which requires at least 2 of these 3 [place] components: An expanded problem focused history; An expanded prob 60056 Immunization 09/11/2016 administration (includes percutaneous, intradermal, subcutaneous, or intramuscular injections); 1 vaccine (single or combination vaccine/toxoid).. 41053 Influenza 09/11/2016 virus vaccine, trivalent, split virus, preservativ Office or 09/11/2016 other outpatient visit for the evaluation and management of an established patient, which requires at least 2 of these 3 [place] components: A detailed history; A detailed examination; Medical d [id number] ADMINISTRATION 09/11/2016 OF INFLUENZA VIRUS VACCINE Office or 10/11/2016 other outpatient visit for the evaluation and management of an established patient, which requires at least 2 of these 3 [place] components: An expanded problem focused history; An expanded prob 20540 Office or 10/31/2016 other outpatient visit for the evaluation and management of an established patient, which requires at least 2 of these 3 [place] components: A detailed history; A detailed examination; Medical d Office or 12/01/2016 other outpatient visit for the evaluation and management of an established patient, which requires at least 2 of these 3 [place] components: A detailed history; A detailed examination; Medical d [id number] Transitional 01/09/2017 Care Management Services with the following required elements: Communication (direct contact, telephone, electronic) with the patient and/or caregiver within 2 business days of discharge Office or 01/23/2017 other outpatient visit for the evaluation and management of an established patient, which requires at least 2 of these 3 [place] components: A detailed history; A detailed examination; Medical d Office or 03/05/2017 other outpatient visit for the evaluation and management of an established patient, which requires at least 2 of these 3 [place] components: A detailed history; A detailed examination; Medical d Office or 04/05/2017 other outpatient visit for the evaluation and management of an established patient, which requires at least 2 of these 3 [place] components: An expanded problem focused history; An expanded prob 01049 Radiologic 05/09/2017 examination, foot; complete, minimum of 3 views.. Office or 05/09/2017 other outpatient visit for the evaluation and management of an established patient, which requires at least 2 of these 3 [place] components: A detailed history; A detailed examination; Medical d Office or 05/23/2017 other outpatient visit for the evaluation and management of an established patient, which requires at least 2 of these 3 [place] components: An expanded problem focused history; An expanded prob 18110 Periodic 07/19/2017 comprehensive preventive medicine reevaluation and management of an individual including an age and gender appropriate history, examination, counseling/anticipatory guidance/risk factor reduc Results Test Result Range L100.0050 - 12/13/16 12:26 WBC - WHITE BLOOD COUNT 4.2 T/MM3 4.5-11.0 RED BLOOD COUNT 3.86 M/MM3 4.50-5.90 HGB - HEMOGLOBIN 11.3 GM/DL 13.5-17.5 HCT - HEMATOCRIT 34.6 % 41-53 MEAN CORPUSCULAR VOLUME 89.6 UM3 80-100 MEAN CORPUSCULAR HGB 29.3 UUG 26-34 MEAN CORPUSCULAR HGB CONC(MCHC 32.7 GM/DL 31-37 RDW STANDARD DEVIATION 45.2 FL 36.9-50.2 PLT - PLATELET COUNT 169 T/MM3 130-400 MEAN PLATELET VOLUME 8.4 UM3 9.4-12.4 NEUTROPHILS % (AUTO) 69.4 % 33-66 LYMPHOCYTES % (AUTO) 20.2 % 23-45 MONOCYTES % (AUTO) 7.8 % 0-9.0 EOSINOPHILS % (AUTO) 1.9 % 0-4 BASOPHILS % (AUTO) 0.5 % 0-2 IMMATURE GRANULOCYTE % (AUTO) 0.2 % 0.0-0.5 NEUTROPHILS # (AUTO) 2.9 T/MM3 1.8-7.7 LYMPHOCYTES # (AUTO) 0.9 T/MM3 1-4.8 MONOCYTES # (AUTO) 0.3 T/MM3 0-0.8 EOSINOPHILS # (AUTO) 0.1 T/MM3 0-0.5 BASOPHILS # (AUTO) 0.0 T/MM3 0-0.2 IMMATURE GRANULOCYTE # (AUTO) 0.01 T/MM3 0.00-0.03 L200.0020 - 12/13/16 12:26 ICTERUS < 2 0-7 HEMOLYSIS < 15 0-25 TURBIDITY < 20 0-20 SODIUM 141 MEQ/L 134-144 POTASSIUM 3.5 MEQ/L 3.6-5 CHLORIDE 103 MEQ/L 98-107 CO2 - CARBON DIOXIDE 27 MEQ/L 22-30 ANION GAP 11 MEQ/L 5-15 BLOOD UREA NITROGEN 8.0 MG/DL 9-20 CREATININE 1.0 MG/DL 0.8-1.5 BUN/CREATININE RATIO 8 RATIO 6-26 GLOMERULAR FILTRATION RATE 81 GLUCOSE 101 MG/DL 75-110 OSMOLALITY,CALCULATED 269 MOSM/KG 261-280 CALCIUM 8.5 MG/DL 8.4-10.2 BILIRUBIN,TOTAL 1.10 MG/DL 0.20-1.30 ALKALINE PHOSPHATASE 77 U/L 38-126 TOTAL PROTEIN 6.6 G/DL 6.3-8.2 ALBUMIN 3.4 G/DL 3.5-5.0 GLOBULIN 3.2 G/DL 2.4-3.6 ALBUMIN/GLOBULIN RATIO 1.1 RATIO 1.1-2.2 AST (SGOT) 20 U/L 17-59 ALT (SGPT) 28 U/L 21-72 L200.1848 - 12/13/16 12:26 TROPONIN I < 0.012 ng/ml 0-0.12 L600.0100 - 12/13/16 13:44 SPECIMEN TYPE, URINE CLEANCATCH-MIDSTREAM COLOR,URINE YELLOW YELLOW TURBIDITY, URINE CLOUDY CLEAR SPECIFIC GRAVITY,URINE 1.020 1.015-1.025 PH, URINE - DIPSTICK 6.0 5.0-8.0 LEUKOCYTE ESTERASE ,URINE 1+ NEGATIVE NITRITE,URINE NEGATIVE NEGATIVE PROTEIN,URINE - DIPSTICK NEGATIVE NEGATIVE GLUCOSE, URINE - DIPSTICK NEGATIVE NEGATIVE KETONES,URINE - DIPSTICK NEGATIVE NEGATIVE UROBILINOGEN,URINE 1.0 EU/DL NORMAL BILIRUBIN,URINE - DIPSTICK NEGATIVE NEGATIVE BLOOD, URINE NEGATIVE NEGATIVE L600.0175 - 12/13/16 13:44 SPECIMEN TYPE, URINE CLEANCATCH-MIDSTREAM COLOR,URINE YELLOW YELLOW TURBIDITY, URINE CLOUDY CLEAR SPECIFIC GRAVITY,URINE 1.020 1.015-1.025 PH, URINE - DIPSTICK 6.0 5.0-8.0 LEUKOCYTE ESTERASE ,URINE 1+ NEGATIVE NITRITE,URINE NEGATIVE NEGATIVE PROTEIN,URINE - DIPSTICK NEGATIVE NEGATIVE GLUCOSE, URINE - DIPSTICK NEGATIVE NEGATIVE KETONES,URINE - DIPSTICK NEGATIVE NEGATIVE UROBILINOGEN,URINE 1.0 EU/DL NORMAL BILIRUBIN,URINE - DIPSTICK NEGATIVE NEGATIVE BLOOD, URINE NEGATIVE NEGATIVE WBC,URINE 10-20 /HPF 0-5 RBC,URINE 0-1 /HPF 0-3 SQUAMOUS EPITHELIAL CELL,UR 5-10 BACTERIA,URINE 4+ NEGATIVE MUCUS,URINE PRESENT CULTURE SET UP,URINE CULT REFLEXED &SETUP M153.0000 - 12/13/16 13:58 URINE CULTURE. CFU/ml L200.0050 - 12/13/16 21:39 ICTERUS < 2 0-7 HEMOLYSIS 42 0-25 TURBIDITY < 20 0-20 SODIUM 139 MEQ/L 134-144 POTASSIUM 3.8 MEQ/L 3.6-5 CHLORIDE 105 MEQ/L 98-107 CO2 - CARBON DIOXIDE 24 MEQ/L 22-30 ANION GAP 10 MEQ/L 5-15 BLOOD UREA NITROGEN 10.0 MG/DL 9-20 CREATININE 0.9 MG/DL 0.8-1.5 BUN/CREATININE RATIO 11 RATIO 6-26 GLOMERULAR FILTRATION RATE 92 GLUCOSE 106 MG/DL 75-110 OSMOLALITY,CALCULATED 267 MOSM/KG 261-280 CALCIUM 8.4 MG/DL 8.4-10.2 L200.1848 - 12/13/16 21:39 HEMOLYSIS 40 0-25 TROPONIN I < 0.012 ng/ml 0-0.12 L600.0175 - 12/13/16 22:00 SPECIMEN TYPE, URINE STRAIGHT CATH COLOR,URINE YELLOW YELLOW TURBIDITY, URINE CLEAR CLEAR SPECIFIC GRAVITY,URINE 1.010 1.015-1.025 PH, URINE - DIPSTICK 6.5 5.0-8.0 LEUKOCYTE ESTERASE ,URINE 1+ NEGATIVE NITRITE,URINE NEGATIVE NEGATIVE PROTEIN,URINE - DIPSTICK NEGATIVE NEGATIVE GLUCOSE, URINE - DIPSTICK NEGATIVE NEGATIVE KETONES,URINE - DIPSTICK NEGATIVE NEGATIVE UROBILINOGEN,URINE 1.0 EU/DL NORMAL BILIRUBIN,URINE - DIPSTICK NEGATIVE NEGATIVE BLOOD, URINE NEGATIVE NEGATIVE L600.0175 - 12/13/16 22:00 SPECIMEN TYPE, URINE STRAIGHT CATH COLOR,URINE YELLOW YELLOW TURBIDITY, URINE CLEAR CLEAR SPECIFIC GRAVITY,URINE 1.010 1.015-1.025 PH, URINE - DIPSTICK 6.5 5.0-8.0 LEUKOCYTE ESTERASE ,URINE 1+ NEGATIVE NITRITE,URINE NEGATIVE NEGATIVE PROTEIN,URINE - DIPSTICK NEGATIVE NEGATIVE GLUCOSE, URINE - DIPSTICK NEGATIVE NEGATIVE KETONES,URINE - DIPSTICK NEGATIVE NEGATIVE UROBILINOGEN,URINE 1.0 EU/DL NORMAL BILIRUBIN,URINE - DIPSTICK NEGATIVE NEGATIVE BLOOD, URINE NEGATIVE NEGATIVE WBC,URINE 10-20 /HPF 0-5 RBC,URINE NONE SEEN /HPF 0-3 SQUAMOUS EPITHELIAL CELL,UR 0-5 BACTERIA,URINE 1+ NEGATIVE CULTURE SET UP,URINE CULT NOT INDICATED [id number] - 12/14/16 22:00 WBC - WHITE BLOOD COUNT 4.8 T/MM3 4.5-11.0 RED BLOOD COUNT 3.35 M/MM3 4.50-5.90 HGB - HEMOGLOBIN 10.0 GM/DL 13.5-17.5 HCT - HEMATOCRIT 30.5 % 41-53 MEAN CORPUSCULAR VOLUME 91.0 UM3 80-100 MEAN CORPUSCULAR HGB 29.9 UUG 26-34 MEAN CORPUSCULAR HGB CONC(MCHC 32.8 GM/DL 31-37 RDW STANDARD DEVIATION 47.1 [place] 36.9-50.2 PLT - PLATELET COUNT 160 T/MM3 130-400 MEAN PLATELET VOLUME 8.6 UM3 9.4-12.4 NEUTROPHILS % (AUTO) 75.3 % 33-66 LYMPHOCYTES % (AUTO) 17.2 % 23-45 MONOCYTES % (AUTO) 6.1 % 0-9.0 EOSINOPHILS % (AUTO) 0.8 % 0-4 BASOPHILS % (AUTO) 0.4 % 0-2 IMMATURE GRANULOCYTE % (AUTO) 0.2 % 0.0-0.5 NEUTROPHILS # (AUTO) 3.6 T/MM3 1.8-7.7 LYMPHOCYTES # (AUTO) 0.8 T/MM3 1-4.8 MONOCYTES # (AUTO) 0.3 T/MM3 0-0.8 EOSINOPHILS # (AUTO) 0.0 T/MM3 0-0.5 BASOPHILS # (AUTO) 0.0 T/MM3 0-0.2 IMMATURE GRANULOCYTE # (AUTO) 0.01 T/MM3 0.00-0.03 L200.005 - 12/14/16 22:00 ICTERUS < 2 0-7 HEMOLYSIS < 15 0-25 TURBIDITY < 20 0-20 SODIUM 139 MEQ/L 134-144 POTASSIUM 4.2 MEQ/L 3.6-5 CHLORIDE 107 MEQ/L 98-107 CO2 - CARBON DIOXIDE 25 MEQ/L 22-30 ANION GAP 7 MEQ/L 5-15 BLOOD UREA NITROGEN 12.0 MG/DL 9-20 CREATININE 1.1 MG/DL 0.8-1.5 BUN/CREATININE RATIO 11 RATIO 6-26 GLOMERULAR FILTRATION RATE 73 GLUCOSE 105 MG/DL 75-110 OSMOLALITY,CALCULATED 268 MOSM/KG 261-280 CALCIUM 7.9 MG/DL 8.4-10.2 L100.0050 - 12/16/16 08:10 WBC - WHITE BLOOD COUNT 3.9 T/MM3 4.5-11.0 RED BLOOD COUNT 3.61 M/MM3 4.50-5.90 HGB - HEMOGLOBIN 10.5 GM/DL 13.5-17.5 HCT - HEMATOCRIT 32.7 % 41-53 MEAN CORPUSCULAR VOLUME 90.6 UM3 80-100 MEAN CORPUSCULAR HGB 29.1 UUG 26-34 MEAN CORPUSCULAR HGB CONC(MCHC 32.1 GM/DL 31-37 RDW STANDARD DEVIATION 45.3 FL 36.9-50.2 PLT - PLATELET COUNT 163 T/MM3 130-400 MEAN PLATELET VOLUME 8.0 UM3 9.4-12.4 NEUTROPHILS % (AUTO) 69.3 % 33-66 LYMPHOCYTES % (AUTO) 21.2 % 23-45 MONOCYTES % (AUTO) 6.4 % 0-9.0 EOSINOPHILS % (AUTO) 2.3 % 0-4 BASOPHILS % (AUTO) 0.5 % 0-2 IMMATURE GRANULOCYTE % (AUTO) 0.3 % 0.0-0.5 NEUTROPHILS # (AUTO) 2.7 T/MM3 1.8-7.7 LYMPHOCYTES # (AUTO) 0.8 T/MM3 1-4.8 MONOCYTES # (AUTO) 0.3 T/MM3 0-0.8 EOSINOPHILS # (AUTO) 0.1 T/MM3 0-0.5 BASOPHILS # (AUTO) 0.0 T/MM3 0-0.2 IMMATURE GRANULOCYTE # (AUTO) 0.01 T/MM3 0.00-0.03 L200.0355 - 12/16/16 08:10 CREATININE 1.0 MG/DL 0.8-1.5 GLOMERULAR FILTRATION RATE 81 L200.005 - 12/16/16 08:10 ICTERUS < 2 0-7 HEMOLYSIS < 15 0-25 TURBIDITY < 20 0-20 SODIUM 137 MEQ/L 134-144 POTASSIUM 4.5 MEQ/L 3.6-5 CHLORIDE 104 MEQ/L 98-107 CO2 - CARBON DIOXIDE 25 MEQ/L 22-30 ANION GAP 8 MEQ/L 5-15 BLOOD UREA NITROGEN 12.0 MG/DL 9-20 CREATININE 1.0 MG/DL 0.8-1.5 BUN/CREATININE RATIO 12 RATIO 6-26 GLOMERULAR FILTRATION RATE 81 GLUCOSE 107 MG/DL 75-110 OSMOLALITY,CALCULATED 264 MOSM/KG 261-280 CALCIUM 8.4 MG/DL 8.4-10.2 L200.305 - 12/16/16 08:10 VANCOMYCIN,TROUGH 17.19 UG/ML 15-20 L200.385 - 12/16/16 08:10 THYROID STIM HORMONE-TSH 3.38 MIU/L 0.47-4.68 L200.2099 - 12/16/16 08:10 IRON 93 UG/DL 49-181 TOTAL IRON BINDING CAPACITY 218 UG/DL 261-497 IRON % SAT (TRANSF %SAT)(CALC) 43 % 13-59 L600.010 - 12/16/16 15:10 COLOR,URINE YELLOW YELLOW TURBIDITY, URINE CLEAR CLEAR SPECIFIC GRAVITY,URINE 1.020 1.015-1.025 PH, URINE - DIPSTICK 6.0 5.0-8.0 LEUKOCYTE ESTERASE ,URINE NEGATIVE NEGATIVE NITRITE,URINE NEGATIVE NEGATIVE PROTEIN,URINE - DIPSTICK NEGATIVE NEGATIVE GLUCOSE, URINE - DIPSTICK NEGATIVE NEGATIVE KETONES,URINE - DIPSTICK NEGATIVE NEGATIVE UROBILINOGEN,URINE 0.2 EU/DL NORMAL BILIRUBIN,URINE - DIPSTICK NEGATIVE NEGATIVE BLOOD, URINE TRACE-INTACT NEGATIVE URINE MICRO MICROSCOPIC NOT IND. L200.2059 - 12/17/16 11:05 AMMONIA 22 UMOL/L 9-33 L100.49 - 12/18/16 05:07 WBC - WHITE BLOOD COUNT 7.3 T/MM3 4.5-11.0 RED BLOOD COUNT 3.56 M/MM3 4.50-5.90 HGB - HEMOGLOBIN 10.3 GM/DL 13.5-17.5 HCT - HEMATOCRIT 31.6 % 41-53 MEAN CORPUSCULAR VOLUME 88.8 UM3 80-100 MEAN CORPUSCULAR HGB 28.9 UUG 26-34 MEAN CORPUSCULAR HGB CONC(MCHC 32.6 GM/DL 31-37 RDW STANDARD DEVIATION 43.8 FL 36.9-50.2 PLT - PLATELET COUNT 161 T/MM3 130-400 MEAN PLATELET VOLUME 8.6 UM3 9.4-12.4 NEUTROPHILS % (AUTO) 77.2 % 33-66 LYMPHOCYTES % (AUTO) 13.3 % 23-45 MONOCYTES % (AUTO) 8.1 % 0-9.0 EOSINOPHILS % (AUTO) 1.0 % 0-4 BASOPHILS % (AUTO) 0.1 % 0-2 IMMATURE GRANULOCYTE % (AUTO) 0.3 % 0.0-0.5 NEUTROPHILS # (AUTO) 5.7 T/MM3 1.8-7.7 LYMPHOCYTES # (AUTO) 1.0 T/MM3 1-4.8 MONOCYTES # (AUTO) 0.6 T/MM3 0-0.8 EOSINOPHILS # (AUTO) 0.1 T/MM3 0-0.5 BASOPHILS # (AUTO) 0.0 T/MM3 0-0.2 IMMATURE GRANULOCYTE # (AUTO) 0.02 T/MM3 0.00-0.03 L200.0050 - 12/18/16 05:07 ICTERUS < 2 0-7 HEMOLYSIS < 15 0-25 TURBIDITY < 20 0-20 SODIUM 131 MEQ/L 134-144 POTASSIUM 4.2 MEQ/L 3.6-5 CHLORIDE 99 MEQ/L 98-107 CO2 - CARBON DIOXIDE 25 MEQ/L 22-30 ANION GAP 7 MEQ/L 5-15 BLOOD UREA NITROGEN 14.0 MG/DL 9-20 CREATININE 0.8 MG/DL 0.8-1.5 BUN/CREATININE RATIO 18 RATIO 6-26 GLOMERULAR FILTRATION RATE 105 GLUCOSE 117 MG/DL 75-110 OSMOLALITY,CALCULATED 255 MOSM/KG 261-280 CALCIUM 8.1 MG/DL 8.4-10.2 L100.0050 - 12/19/16 05:45 WBC - WHITE BLOOD COUNT 9.6 T/MM3 4.5-11.0 RED BLOOD COUNT 3.41 M/MM3 4.50-5.90 HGB - HEMOGLOBIN 9.9 GM/DL 13.5-17.5 HCT - HEMATOCRIT 30.1 % 41-53 MEAN CORPUSCULAR VOLUME 88.3 UM3 80-100 MEAN CORPUSCULAR HGB 29.0 UUG 26-34 MEAN CORPUSCULAR HGB CONC(MCHC 32.9 GM/DL 31-37 RDW STANDARD DEVIATION 43.2 FL 36.9-50.2 PLT - PLATELET COUNT 177 T/MM3 130-400 MEAN PLATELET VOLUME 9.0 UM3 9.4-12.4 NEUTROPHILS % (AUTO) 76.1 % 33-66 LYMPHOCYTES % (AUTO) 11.9 % 23-45 MONOCYTES % (AUTO) 11.0 % 0-9.0 EOSINOPHILS % (AUTO) 0.6 % 0-4 BASOPHILS % (AUTO) 0.1 % 0-2 IMMATURE GRANULOCYTE % (AUTO) 0.3 % 0.0-0.5 NEUTROPHILS # (AUTO) 7.3 T/MM3 1.8-7.7 LYMPHOCYTES # (AUTO) 1.1 T/MM3 1-4.8 MONOCYTES # (AUTO) 1.1 T/MM3 0-0.8 EOSINOPHILS # (AUTO) 0.1 T/MM3 0-0.5 BASOPHILS # (AUTO) 0.0 T/MM3 0-0.2 IMMATURE GRANULOCYTE # (AUTO) 0.03 T/MM3 0.00-0.03 L200.0050 - 12/19/16 05:45 ICTERUS < 2 0-7 HEMOLYSIS < 15 0-25 TURBIDITY < 20 0-20 SODIUM 125 MEQ/L 134-144 POTASSIUM 4.2 MEQ/L 3.6-5 CHLORIDE 93 MEQ/L 98-107 CO2 - CARBON DIOXIDE 25 MEQ/L 22-30 ANION GAP 7 MEQ/L 5-15 BLOOD UREA NITROGEN 17.0 MG/DL 9-20 CREATININE 0.9 MG/DL 0.8-1.5 BUN/CREATININE RATIO 19 RATIO 6-26 GLOMERULAR FILTRATION RATE 92 GLUCOSE 110 MG/DL 75-110 OSMOLALITY,CALCULATED 245 MOSM/KG 261-280 CALCIUM 8.6 MG/DL 8.4-10.2 L450.2030 - 12/19/16 11:36 SODIUM, UR RANDOM 26 MEQ/L 30-90 L750.6990 - 12/19/16 11:36 OSMOLALITY URINE - AMS 775 mOsm/kg 38-1400 L200.0100 - 12/19/16 14:58 SODIUM 125 MEQ/L 134-144 L200.005 - 12/20/16 04:49 ICTERUS < 2 0-7 HEMOLYSIS < 15 0-25 TURBIDITY < 20 0-20 SODIUM 125 MEQ/L 134-144 POTASSIUM 4.1 MEQ/L 3.6-5 CHLORIDE 94 MEQ/L 98-107 CO2 - CARBON DIOXIDE 23 MEQ/L 22-30 ANION GAP 8 MEQ/L 5-15 BLOOD UREA NITROGEN 21.0 MG/DL 9-20 CREATININE 0.9 MG/DL 0.8-1.5 BUN/CREATININE RATIO 23 RATIO 6-26 GLOMERULAR FILTRATION RATE 92 GLUCOSE 112 MG/DL 75-110 OSMOLALITY,CALCULATED 246 MOSM/KG 261-280 CALCIUM 8.7 MG/DL 8.4-10.2 L200.1848 - 12/20/16 10:01 HEMOLYSIS < 15 0-25 TROPONIN I < 0.012 ng/ml 0-0.12 L100.0050 - 12/20/16 11:41 WBC - WHITE BLOOD COUNT 13.3 T/MM3 4.5-11.0 RED BLOOD COUNT 3.54 M/MM3 4.50-5.90 HGB - HEMOGLOBIN 10.2 GM/DL 13.5-17.5 HCT - HEMATOCRIT 31.0 % 41-53 MEAN CORPUSCULAR VOLUME 87.6 UM3 80-100 MEAN CORPUSCULAR HGB 28.8 UUG 26-34 MEAN CORPUSCULAR HGB CONC(MCHC 32.9 GM/DL 31-37 NEUTROPHILS # (AUTO) 10.5 T/MM3 1.8-7.7 LYMPHOCYTES # (AUTO) 1.0 T/MM3 1-4.8 MONOCYTES # (AUTO) 1.7 T/MM3 0-0.8 EOSINOPHILS # (AUTO) 0.0 T/MM3 0-0.5 BASOPHILS # (AUTO) 0.0 T/MM3 0-0.2 IMMATURE GRANULOCYTE # (AUTO) 0.09 T/MM3 0.00-0.03 L200.0020 - 12/20/16 11:41 ICTERUS < 2 0-7 HEMOLYSIS < 15 0-25 TURBIDITY < 20 0-20 SODIUM 128 MEQ/L 134-144 POTASSIUM 4.5 MEQ/L 3.6-5 CHLORIDE 92 MEQ/L 98-107 CO2 - CARBON DIOXIDE 24 MEQ/L 22-30 ANION GAP 12 MEQ/L 5-15 BLOOD UREA NITROGEN 22.0 MG/DL 9-20 CREATININE 1.1 MG/DL 0.8-1.5 BUN/CREATININE RATIO 20 RATIO 6-26 GLOMERULAR FILTRATION RATE 73 GLUCOSE 130 MG/DL 75-110 OSMOLALITY,CALCULATED 252 MOSM/KG 261-280 CALCIUM 8.9 MG/DL 8.4-10.2 BILIRUBIN,TOTAL 0.80 MG/DL 0.20-1.30 ALKALINE PHOSPHATASE 75 U/L 38-126 TOTAL PROTEIN 6.8 G/DL 6.3-8.2 ALBUMIN 3.6 G/DL 3.5-5.0 GLOBULIN 3.2 G/DL 2.4-3.6 ALBUMIN/GLOBULIN RATIO 1.1 RATIO 1.1-2.2 AST (SGOT) 22 U/L 17-59 ALT (SGPT) 35 U/L 21-72 L200.1999 - 12/20/16 11:41 MAGNESIUM 2.3 MG/DL 1.6-2.3 L200.206612/20/16 11:41 LACTATE - LACTIC ACID, VENOUS 1.3 MMOL/L 0.6-2.2 L200.1847 - 12/20/16 11:41 HEMOLYSIS < 15 0-25 TROPONIN I < 0.012 ng/ml 0-0.12 L200.2067 - 12/20/16 11:41 PROCALCITONIN 0.25 NG/ML L400.0000 - 12/20/16 16:00 PH, ABG 7.420 7.350-7.450 PCO2, ABG 37 MMHG 34-45 PO2, ABG 96 MMHG 80-100 HCO3, ABG 24 MEQ/L 22-26 TOTAL CO2, ABG 25.1 MEQ/L 23-27 BASE EXCESS, ABG -0.2 MMOL/L -2.0-2.0 OXYGEN SAT, ABG 98.0 % 95.0-98.0 TIDAL VOL.VENT ABG 4 ML 0-1200 LABG ADM RTES NASAL CANNULA,LITERS L100.0050 - 12/20/16 16:20 WBC - WHITE BLOOD COUNT 10.2 T/MM3 4.5-11.0 RED BLOOD COUNT 3.46 M/MM3 4.50-5.90 HGB - HEMOGLOBIN 10.2 GM/DL 13.5-17.5 HCT - HEMATOCRIT 30.4 % 41-53 MEAN CORPUSCULAR VOLUME 87.9 UM3 80-100 MEAN CORPUSCULAR HGB 29.5 UUG 26-34 MEAN CORPUSCULAR HGB CONC(MCHC 33.6 GM/DL 31-37 RDW STANDARD DEVIATION 43.8 FL 36.9-50.2 PLT - PLATELET COUNT 245 T/MM3 130-400 MEAN PLATELET VOLUME 8.9 UM3 9.4-12.4 NEUTROPHILS % (AUTO) 79.3 % 33-66 LYMPHOCYTES % (AUTO) 9.5 % 23-45 MONOCYTES % (AUTO) 10.2 % 0-9.0 EOSINOPHILS % (AUTO) 0.3 % 0-4 BASOPHILS % (AUTO) 0.1 % 0-2 IMMATURE GRANULOCYTE % (AUTO) 0.6 % 0.0-0.5 NEUTROPHILS # (AUTO) 8.1 T/MM3 1.8-7.7 LYMPHOCYTES # (AUTO) 1.0 T/MM3 1-4.8 MONOCYTES # (AUTO) 1.0 T/MM3 0-0.8 EOSINOPHILS # (AUTO) 0.0 T/MM3 0-0.5 BASOPHILS # (AUTO) 0.0 T/MM3 0-0.2 IMMATURE GRANULOCYTE # (AUTO) 0.06 T/MM3 0.00-0.03 L200.2066 - 12/20/16 16:20 LACTATE - LACTIC ACID, VENOUS 1.0 MMOL/L 0.6-2.2 L200.1848 - 12/20/16 16:20 HEMOLYSIS < 15 0-25 TROPONIN I < 0.012 ng/ml 0-0.12 L200.8 - 12/20/16 16:20 PROCALCITONIN 0.27 NG/ML L200.1848 - 12/20/16 23:15 HEMOLYSIS < 15 0-25 TROPONIN I < 0.012 ng/ml 0-0.12 L100.0 - 12/21/16 05:04 WBC - WHITE BLOOD COUNT 10.7 T/MM3 4.5-11.0 RED BLOOD COUNT 3.37 M/MM3 4.50-5.90 HGB - HEMOGLOBIN 9.8 GM/DL 13.5-17.5 HCT - HEMATOCRIT 29.9 % 41-53 MEAN CORPUSCULAR VOLUME 88.7 UM3 80-100 MEAN CORPUSCULAR HGB 29.1 UUG 26-34 MEAN CORPUSCULAR HGB CONC(MCHC 32.8 GM/DL 31-37 RDW STANDARD DEVIATION 44.8 FL 36.9-50.2 PLT - PLATELET COUNT 253 T/MM3 130-400 MEAN PLATELET VOLUME 9.0 UM3 9.4-12.4 NEUTROPHILS % (AUTO) 77.8 % 33-66 LYMPHOCYTES % (AUTO) 7.7 % 23-45 MONOCYTES % (AUTO) 12.7 % 0-9.0 EOSINOPHILS % (AUTO) 0.9 % 0-4 BASOPHILS % (AUTO) 0.2 % 0-2 IMMATURE GRANULOCYTE % (AUTO) 0.7 % 0.0-0.5 NEUTROPHILS # (AUTO) 8.4 T/MM3 1.8-7.7 LYMPHOCYTES # (AUTO) 0.8 T/MM3 1-4.8 MONOCYTES # (AUTO) 1.4 T/MM3 0-0.8 EOSINOPHILS # (AUTO) 0.1 T/MM3 0-0.5 BASOPHILS # (AUTO) 0.0 T/MM3 0-0.2 IMMATURE GRANULOCYTE # (AUTO) 0.07 T/MM3 0.00-0.03 L200.135 - 12/21/16 05:04 CHOLESTEROL 158 MG/DL 132-199 TRIGLYCERIDES 141 MG/DL 40-160 HDL CHOLESTEROL, DIRECT 43 MG/DL 40-60 LDL CHOLESTEROL,CALCULATED 86.8 66-159 VLDL CHOLESTEROL 28.2 MG/DL 0-28 RISK FACTOR 3.7 RATIO 0-5.0 L200.0050 - 12/21/16 05:04 ICTERUS < 2 0-7 HEMOLYSIS < 15 0-25 TURBIDITY < 20 0-20 SODIUM 129 MEQ/L 134-144 POTASSIUM 4.8 MEQ/L 3.6-5 CHLORIDE 93 MEQ/L 98-107 CO2 - CARBON DIOXIDE 25 MEQ/L 22-30 ANION GAP 11 MEQ/L 5-15 BLOOD UREA NITROGEN 26.0 MG/DL 9-20 CREATININE 1.2 MG/DL 0.8-1.5 BUN/CREATININE RATIO 22 RATIO 6-26 GLOMERULAR FILTRATION RATE 66 GLUCOSE 118 MG/DL 75-110 OSMOLALITY,CALCULATED 255 MOSM/KG 261-280 CALCIUM 8.7 MG/DL 8.4-10.2 M750.3000 - 12/21/16 14:52 MCDIFFAG-A Source: Stool Collected: 12/21/16 14:52 L100.0050 - 12/22/16 05:09 WBC - WHITE BLOOD COUNT 6.0 T/MM3 4.5-11.0 RED BLOOD COUNT 2.84 M/MM3 4.50-5.90 HGB - HEMOGLOBIN 8.4 GM/DL 13.5-17.5 HCT - HEMATOCRIT 25.6 % 41-53 MEAN CORPUSCULAR VOLUME 90.1 UM3 80-100 MEAN CORPUSCULAR HGB 29.6 UUG 26-34 MEAN CORPUSCULAR HGB CONC(MCHC 32.8 GM/DL 31-37 RDW STANDARD DEVIATION 46.8 FL 36.9-50.2 PLT - PLATELET COUNT 176 T/MM3 130-400 MEAN PLATELET VOLUME 8.7 UM3 9.4-12.4 NEUTROPHILS % (AUTO) 73.8 % 33-66 LYMPHOCYTES % (AUTO) 13.6 % 23-45 MONOCYTES % (AUTO) 10.6 % 0-9.0 EOSINOPHILS % (AUTO) 1.0 % 0-4 BASOPHILS % (AUTO) 0.0 % 0-2 IMMATURE GRANULOCYTE % (AUTO) 1.0 % 0.0-0.5 NEUTROPHILS # (AUTO) 4.4 T/MM3 1.8-7.7 LYMPHOCYTES # (AUTO) 0.8 T/MM3 1-4.8 MONOCYTES # (AUTO) 0.6 T/MM3 0-0.8 EOSINOPHILS # (AUTO) 0.1 T/MM3 0-0.5 BASOPHILS # (AUTO) 0.0 T/MM3 0-0.2 IMMATURE GRANULOCYTE # (AUTO) 0.06 T/MM3 0.00-0.03 L200.0020 - 12/22/16 05:09 ICTERUS < 2 0-7 HEMOLYSIS < 15 0-25 TURBIDITY < 20 0-20 SODIUM 129 MEQ/L 134-144 POTASSIUM 4.4 MEQ/L 3.6-5 CHLORIDE 96 MEQ/L 98-107 CO2 - CARBON DIOXIDE 25 MEQ/L 22-30 ANION GAP 8 MEQ/L 5-15 BLOOD UREA NITROGEN 27.0 MG/DL 9-20 CREATININE 1.0 MG/DL 0.8-1.5 BUN/CREATININE RATIO 27 RATIO 6-26 GLOMERULAR FILTRATION RATE 81 GLUCOSE 105 MG/DL 75-110 OSMOLALITY,CALCULATED 254 MOSM/KG 261-280 CALCIUM 7.7 MG/DL 8.4-10.2 BILIRUBIN,TOTAL 0.70 MG/DL 0.20-1.30 ALKALINE PHOSPHATASE 58 U/L 38-126 TOTAL PROTEIN 5.7 G/DL 6.3-8.2 ALBUMIN 2.7 G/DL 3.5-5.0 GLOBULIN 3.0 G/DL 2.4-3.6 ALBUMIN/GLOBULIN RATIO 0.9 RATIO 1.1-2.2 AST (SGOT) 20 U/L 17-59 ALT (SGPT) 29 U/L 21-72 L100.0050 - 12/23/16 04:21 WBC - WHITE BLOOD COUNT 4.2 T/MM3 4.5-11.0 RED BLOOD COUNT 2.97 M/MM3 4.50-5.90 HGB - HEMOGLOBIN 8.6 GM/DL 13.5-17.5 HCT - HEMATOCRIT 26.8 % 41-53 MEAN CORPUSCULAR VOLUME 90.2 UM3 80-100 MEAN CORPUSCULAR HGB 29.0 UUG 26-34 MEAN CORPUSCULAR HGB CONC(MCHC 32.1 GM/DL 31-37 RDW STANDARD DEVIATION 46.6 FL 36.9-50.2 PLT - PLATELET COUNT 196 T/MM3 130-400 MEAN PLATELET VOLUME 9.2 UM3 9.4-12.4 NEUTROPHILS % (AUTO) 66.7 % 33-66 LYMPHOCYTES % (AUTO) 15.1 % 23-45 MONOCYTES % (AUTO) 14.9 % 0-9.0 EOSINOPHILS % (AUTO) 1.4 % 0-4 BASOPHILS % (AUTO) 0.5 % 0-2 IMMATURE GRANULOCYTE % (AUTO) 1.4 % 0.0-0.5 NEUTROPHILS # (AUTO) 2.8 T/MM3 1.8-7.7 LYMPHOCYTES # (AUTO) 0.6 T/MM3 1-4.8 MONOCYTES # (AUTO) 0.6 T/MM3 0-0.8 EOSINOPHILS # (AUTO) 0.1 T/MM3 0-0.5 BASOPHILS # (AUTO) 0.0 T/MM3 0-0.2 IMMATURE GRANULOCYTE # (AUTO) 0.06 T/MM3 0.00-0.03 L200.0050 - 12/23/16 04:21 ICTERUS < 2 0-7 HEMOLYSIS < 15 0-25 TURBIDITY < 20 0-20 SODIUM 129 MEQ/L 134-144 POTASSIUM 4.2 MEQ/L 3.6-5 CHLORIDE 98 MEQ/L 98-107 CO2 - CARBON DIOXIDE 22 MEQ/L 22-30 ANION GAP 9 MEQ/L 5-15 BLOOD UREA NITROGEN 23.0 MG/DL 9-20 CREATININE 0.8 MG/DL 0.8-1.5 BUN/CREATININE RATIO 29 RATIO 6-26 GLOMERULAR FILTRATION RATE 105 GLUCOSE 92 MG/DL 75-110 OSMOLALITY,CALCULATED 253 MOSM/KG 261-280 CALCIUM 7.8 MG/DL 8.4-10.2 L100.0070 - 12/24/16 05:15 WBC - WHITE BLOOD COUNT 4.4 T/MM3 4.5-11.0 RED BLOOD COUNT 3.35 M/MM3 4.50-5.90 HGB - HEMOGLOBIN 9.6 GM/DL 13.5-17.5 HCT - HEMATOCRIT 30.1 % 41-53 MEAN CORPUSCULAR VOLUME 89.9 UM3 80-100 MEAN CORPUSCULAR HGB 28.7 UUG 26-34 MEAN CORPUSCULAR HGB CONC(MCHC 31.9 GM/DL 31-37 RDW STANDARD DEVIATION 46.1 FL 36.9-50.2 PLT - PLATELET COUNT 236 T/MM3 130-400 MEAN PLATELET VOLUME 8.7 UM3 9.4-12.4 L200.29 - 12/24/16 05:15 ICTERUS < 2 0-7 HEMOLYSIS < 15 0-25 TURBIDITY < 20 0-20 SODIUM 129 MEQ/L 134-144 POTASSIUM 4.3 MEQ/L 3.6-5 CHLORIDE 97 MEQ/L 98-107 CO2 - CARBON DIOXIDE 23 MEQ/L 22-30 ANION GAP 9 MEQ/L 5-15 BLOOD UREA NITROGEN 19.0 MG/DL 9-20 CREATININE 0.8 MG/DL 0.8-1.5 BUN/CREATININE RATIO 24 RATIO 6-26 GLOMERULAR FILTRATION RATE 105 GLUCOSE 95 MG/DL 75-110 OSMOLALITY,CALCULATED 251 MOSM/KG 261-280 CALCIUM 8.0 MG/DL 8.4-10.2 PHOSPHORUS 3.6 MG/DL 2.5-4.5 ALBUMIN 3.1 G/DL 3.5-5.0 L100.007 - 12/25/16 04:59 WBC - WHITE BLOOD COUNT 4.6 T/MM3 4.5-11.0 RED BLOOD COUNT 3.33 M/MM3 4.50-5.90 HGB - HEMOGLOBIN 9.7 GM/DL 13.5-17.5 HCT - HEMATOCRIT 30.0 % 41-53 MEAN CORPUSCULAR VOLUME 90.1 UM3 80-100 MEAN CORPUSCULAR HGB 29.1 UUG 26-34 MEAN CORPUSCULAR HGB CONC(MCHC 32.3 GM/DL 31-37 RDW STANDARD DEVIATION 45.8 FL 36.9-50.2 PLT - PLATELET COUNT 245 T/MM3 130-400 MEAN PLATELET VOLUME 8.6 UM3 9.4-12.4 L200.003 - 12/25/16 04:59 ICTERUS < 2 0-7 HEMOLYSIS < 15 0-25 TURBIDITY < 20 0-20 SODIUM 133 MEQ/L 134-144 POTASSIUM 4.1 MEQ/L 3.6-5 CHLORIDE 101 MEQ/L 98-107 CO2 - CARBON DIOXIDE 22 MEQ/L 22-30 ANION GAP 10 MEQ/L 5-15 BLOOD UREA NITROGEN 13.0 MG/DL 9-20 CREATININE 0.7 MG/DL 0.8-1.5 BUN/CREATININE RATIO 19 RATIO 6-26 GLOMERULAR FILTRATION RATE 123 GLUCOSE 85 MG/DL 75-110 OSMOLALITY,CALCULATED 255 MOSM/KG 261-280 CALCIUM 7.8 MG/DL 8.4-10.2 PHOSPHORUS 2.6 MG/DL 2.5-4.5 ALBUMIN 2.8 G/DL 3.5-5.0 L200.49 - 12/26/16 04:28 ICTERUS < 2 0-7 HEMOLYSIS < 15 0-25 TURBIDITY < 20 0-20 SODIUM 132 MEQ/L 134-144 POTASSIUM 3.6 MEQ/L 3.6-5 CHLORIDE 102 MEQ/L 98-107 CO2 - CARBON DIOXIDE 22 MEQ/L 22-30 ANION GAP 8 MEQ/L 5-15 BLOOD UREA NITROGEN 10.0 MG/DL 9-20 CREATININE 0.6 MG/DL 0.8-1.5 BUN/CREATININE RATIO 17 RATIO 6-26 GLOMERULAR FILTRATION RATE 146 GLUCOSE 87 MG/DL 75-110 OSMOLALITY,CALCULATED 253 MOSM/KG 261-280 CALCIUM 7.6 MG/DL 8.4-10.2 L200.199912/26/16 04:28 MAGNESIUM 2.2 MG/DL 1.6-2.3 L200.49 - 12/27/16 04:22 ICTERUS < 2 0-7 HEMOLYSIS < 15 0-25 TURBIDITY < 20 0-20 SODIUM 133 MEQ/L 134-144 POTASSIUM 3.3 MEQ/L 3.6-5 CHLORIDE 102 MEQ/L 98-107 CO2 - CARBON DIOXIDE 24 MEQ/L 22-30 ANION GAP 7 MEQ/L 5-15 BLOOD UREA NITROGEN 6.0 MG/DL 9-20 CREATININE 0.6 MG/DL 0.8-1.5 BUN/CREATININE RATIO 10 RATIO 6-26 GLOMERULAR FILTRATION RATE 146 GLUCOSE 107 MG/DL 75-110 OSMOLALITY,CALCULATED 254 MOSM/KG 261-280 CALCIUM 7.6 MG/DL 8.4-10.2 L100.49 - 12/28/16 04:15 WBC - WHITE BLOOD COUNT 3.9 T/MM3 4.5-11.0 RED BLOOD COUNT 3.31 M/MM3 4.50-5.90 HGB - HEMOGLOBIN 9.5 GM/DL 13.5-17.5 HCT - HEMATOCRIT 29.1 % 41-53 MEAN CORPUSCULAR VOLUME 87.9 UM3 80-100 MEAN CORPUSCULAR HGB 28.7 UUG 26-34 MEAN CORPUSCULAR HGB CONC(MCHC 32.6 GM/DL 31-37 RDW STANDARD DEVIATION 43.9 FL 36.9-50.2 PLT - PLATELET COUNT 206 T/MM3 130-400 MEAN PLATELET VOLUME 8.5 UM3 9.4-12.4 NEUTROPHILS % (AUTO) 64.2 % 33-66 LYMPHOCYTES % (AUTO) 22.2 % 23-45 MONOCYTES % (AUTO) 10.9 % 0-9.0 EOSINOPHILS % (AUTO) 0.8 % 0-4 BASOPHILS % (AUTO) 0.3 % 0-2 IMMATURE GRANULOCYTE % (AUTO) 1.6 % 0.0-0.5 NEUTROPHILS # (AUTO) 2.5 T/MM3 1.8-7.7 LYMPHOCYTES # (AUTO) 0.9 T/MM3 1-4.8 MONOCYTES # (AUTO) 0.4 T/MM3 0-0.8 EOSINOPHILS # (AUTO) 0.0 T/MM3 0-0.5 BASOPHILS # (AUTO) 0.0 T/MM3 0-0.2 IMMATURE GRANULOCYTE # (AUTO) 0.06 T/MM3 0.00-0.03 L200.005 - 12/28/16 04:15 ICTERUS < 2 0-7 HEMOLYSIS < 15 0-25 TURBIDITY < 20 0-20 SODIUM 134 MEQ/L 134-144 POTASSIUM 3.3 MEQ/L 3.6-5 CHLORIDE 103 MEQ/L 98-107 CO2 - CARBON DIOXIDE 25 MEQ/L 22-30 ANION GAP 6 MEQ/L 5-15 BLOOD UREA NITROGEN 7.0 MG/DL 9-20 CREATININE 0.6 MG/DL 0.8-1.5 BUN/CREATININE RATIO 12 RATIO 6-26 GLOMERULAR FILTRATION RATE 146 GLUCOSE 113 MG/DL 75-110 OSMOLALITY,CALCULATED 257 MOSM/KG 261-280 CALCIUM 8.1 MG/DL 8.4-10.2 L200.0050 - 12/29/16 04:45 ICTERUS < 2 0-7 HEMOLYSIS < 15 0-25 TURBIDITY < 20 0-20 SODIUM 134 MEQ/L 134-144 POTASSIUM 3.8 MEQ/L 3.6-5 CHLORIDE 102 MEQ/L 98-107 CO2 - CARBON DIOXIDE 25 MEQ/L 22-30 ANION GAP 7 MEQ/L 5-15 BLOOD UREA NITROGEN 8.0 MG/DL 9-20 CREATININE 0.6 MG/DL 0.8-1.5 BUN/CREATININE RATIO 13 RATIO 6-26 GLOMERULAR FILTRATION RATE 146 GLUCOSE 119 MG/DL 75-110 OSMOLALITY,CALCULATED 257 MOSM/KG 261-280 CALCIUM 8.4 MG/DL 8.4-10.2 L575.0548 - 12/29/16 20:14 C. DIFFICILE TOXIN B NEGATIVE NEGATIVE L100.0050 - 12/30/16 04:11 WBC - WHITE BLOOD COUNT 4.9 T/MM3 4.5-11.0 RED BLOOD COUNT 3.24 M/MM3 4.50-5.90 HGB - HEMOGLOBIN 9.2 GM/DL 13.5-17.5 HCT - HEMATOCRIT 28.9 % 41-53 MEAN CORPUSCULAR VOLUME 89.2 UM3 80-100 MEAN CORPUSCULAR HGB 28.4 UUG 26-34 MEAN CORPUSCULAR HGB CONC(MCHC 31.8 GM/DL 31-37 RDW STANDARD DEVIATION 46.1 FL 36.9-50.2 PLT - PLATELET COUNT 198 T/MM3 130-400 MEAN PLATELET VOLUME 8.7 UM3 9.4-12.4 NEUTROPHILS % (AUTO) 68.4 % 33-66 LYMPHOCYTES % (AUTO) 20.9 % 23-45 MONOCYTES % (AUTO) 8.3 % 0-9.0 EOSINOPHILS % (AUTO) 1.0 % 0-4 BASOPHILS % (AUTO) 0.2 % 0-2 IMMATURE GRANULOCYTE % (AUTO) 1.2 % 0.0-0.5 NEUTROPHILS # (AUTO) 3.4 T/MM3 1.8-7.7 LYMPHOCYTES # (AUTO) 1.0 T/MM3 1-4.8 MONOCYTES # (AUTO) 0.4 T/MM3 0-0.8 EOSINOPHILS # (AUTO) 0.1 T/MM3 0-0.5 BASOPHILS # (AUTO) 0.0 T/MM3 0-0.2 IMMATURE GRANULOCYTE # (AUTO) 0.06 T/MM3 0.00-0.03 L200.49 - 12/30/16 04:11 ICTERUS < 2 0-7 HEMOLYSIS < 15 0-25 TURBIDITY < 20 0-20 SODIUM 133 MEQ/L 134-144 POTASSIUM 4.1 MEQ/L 3.6-5 CHLORIDE 100 MEQ/L 98-107 CO2 - CARBON DIOXIDE 27 MEQ/L 22-30 ANION GAP 6 MEQ/L 5-15 BLOOD UREA NITROGEN 5.0 MG/DL 9-20 CREATININE 0.6 MG/DL 0.8-1.5 BUN/CREATININE RATIO 8 RATIO 6-26 GLOMERULAR FILTRATION RATE 146 GLUCOSE 103 MG/DL 75-110 OSMOLALITY,CALCULATED 253 MOSM/KG 261-280 CALCIUM 8.8 MG/DL 8.4-10.2 L200.29 - 12/31/16 03:57 ICTERUS < 2 0-7 HEMOLYSIS < 15 0-25 TURBIDITY < 20 0-20 SODIUM 135 MEQ/L 134-144 POTASSIUM 4.5 MEQ/L 3.6-5 CHLORIDE 100 MEQ/L 98-107 CO2 - CARBON DIOXIDE 25 MEQ/L 22-30 ANION GAP 10 MEQ/L 5-15 BLOOD UREA NITROGEN 6.0 MG/DL 9-20 CREATININE 0.6 MG/DL 0.8-1.5 BUN/CREATININE RATIO 10 RATIO 6-26 GLOMERULAR FILTRATION RATE 146 GLUCOSE 103 MG/DL 75-110 OSMOLALITY,CALCULATED 258 MOSM/KG 261-280 CALCIUM 8.9 MG/DL 8.4-10.2 PHOSPHORUS 3.9 MG/DL 2.5-4.5 ALBUMIN 3.0 G/DL 3.5-5.0 M100.0301 - 12/31/16 10:59 NICHOL L200.29 - 01/01/17 04:12 ICTERUS < 2 0-7 HEMOLYSIS < 15 0-25 TURBIDITY < 20 0-20 SODIUM 135 MEQ/L 134-144 POTASSIUM 4.5 MEQ/L 3.6-5 CHLORIDE 100 MEQ/L 98-107 CO2 - CARBON DIOXIDE 23 MEQ/L 22-30 ANION GAP 12 MEQ/L 5-15 BLOOD UREA NITROGEN 8.0 MG/DL 9-20 CREATININE 0.7 MG/DL 0.8-1.5 BUN/CREATININE RATIO 11 RATIO 6-26 GLOMERULAR FILTRATION RATE 123 GLUCOSE 115 MG/DL 75-110 OSMOLALITY,CALCULATED 259 MOSM/KG 261-280 CALCIUM 9.1 MG/DL 8.4-10.2 PHOSPHORUS 3.9 MG/DL 2.5-4.5 ALBUMIN 3.3 G/DL 3.5-5.0 L200.1999 - 01/01/17 04:12 MAGNESIUM 1.8 MG/DL 1.6-2.3 L100.005 - 01/01/17 04:12 WBC - WHITE BLOOD COUNT 6.3 T/MM3 4.5-11.0 RED BLOOD COUNT 3.48 M/MM3 4.50-5.90 HGB - HEMOGLOBIN 10.0 GM/DL 13.5-17.5 HCT - HEMATOCRIT 31.6 % 41-53 MEAN CORPUSCULAR VOLUME 90.8 UM3 80-100 MEAN CORPUSCULAR HGB 28.7 UUG 26-34 MEAN CORPUSCULAR HGB CONC(MCHC 31.6 GM/DL 31-37 RDW STANDARD DEVIATION 49.6 FL 36.9-50.2 PLT - PLATELET COUNT 222 T/MM3 130-400 MEAN PLATELET VOLUME 9.5 UM3 9.4-12.4 L100.0105 - 01/01/17 04:12 NEUTROPHILS % (MANUAL) 69.0 % 33-66 BAND NEUTROPHILS % 2.0 % 0-6 LYMPHOCYTES % (MANUAL) 24.0 % 23-45 MONOCYTES % (MANUAL) 4.0 % 0-9.0 EOSINOPHILS % (MANUAL) 1.0 % 0-4 BAND NEUTROPHILS # 0.1 T/MM3 NEUTROPHILS # (MANUAL) 4.3 T/MM3 1.8-7.7 LYMPHOCYTES # (MANUAL) 1.5 T/MM3 1-4.8 MONOCYTES # (MANUAL) 0.3 T/MM3 0-0.8 EOSINOPHILS # (MANUAL) 0.1 T/MM3 0-0.5 RBC MORPHOLOGY NORMAL L200.3850 - 01/01/17 04:12 THYROID STIM HORMONE-TSH 5.87 MIU/L 0.47-4.68 L200.2100 - 01/01/17 04:12 IRON 40 UG/DL 49-181 TOTAL IRON BINDING CAPACITY 244 UG/DL 261-497 IRON % SAT (TRANSF %SAT)(CALC) 16 % 13-59 L200.2365 - 01/01/17 04:12 FOLATE 5.0 NG/ML 2.76-20 L200.2359 - 01/01/17 04:12 VITAMIN B12 377 PG/ML 239-931 L200.49 - 01/02/17 04:20 ICTERUS < 2 0-7 HEMOLYSIS < 15 0-25 TURBIDITY < 20 0-20 SODIUM 135 MEQ/L 134-144 POTASSIUM 4.9 MEQ/L 3.6-5 CHLORIDE 97 MEQ/L 98-107 CO2 - CARBON DIOXIDE 25 MEQ/L 22-30 ANION GAP 13 MEQ/L 5-15 BLOOD UREA NITROGEN 10.0 MG/DL 9-20 CREATININE 0.8 MG/DL 0.8-1.5 BUN/CREATININE RATIO 13 RATIO 6-26 GLOMERULAR FILTRATION RATE 105 GLUCOSE 110 MG/DL 75-110 OSMOLALITY,CALCULATED 260 MOSM/KG 261-280 CALCIUM 9.4 MG/DL 8.4-10.2 L200.005 - 01/03/17 04:55 ICTERUS < 2 0-7 HEMOLYSIS < 15 0-25 TURBIDITY < 20 0-20 SODIUM 137 MEQ/L 134-144 POTASSIUM 4.7 MEQ/L 3.6-5 CHLORIDE 100 MEQ/L 98-107 CO2 - CARBON DIOXIDE 24 MEQ/L 22-30 ANION GAP 13 MEQ/L 5-15 BLOOD UREA NITROGEN 14.0 MG/DL 9-20 CREATININE 0.7 MG/DL 0.8-1.5 BUN/CREATININE RATIO 20 RATIO 6-26 GLOMERULAR FILTRATION RATE 123 GLUCOSE 122 MG/DL 75-110 OSMOLALITY,CALCULATED 266 MOSM/KG 261-280 CALCIUM 9.4 MG/DL 8.4-10.2 L200.1847 - 01/03/17 04:55 TROPONIN I < 0.012 ng/ml 0-0.12 L100.0298 - 01/03/17 09:16 HGB - HEMOGLOBIN 11.3 GM/DL 13.5-17.5 CBC With Platelet and Differential - 07/19/17 10:00 Absolute Basophils 0.06 10*3/uL 0.00-0.20 Absolute Eosinophils 0.28 10*3/uL 0.00-0.50 Absolute Lymphocytes 1.24 10*3/uL 0.80-3.30 Absolute Monocytes 0.37 10*3/uL 0.30-1.00 Absolute Neutrophils 3.04 10*3/uL 1.90-7.00 Basophils 1 % 0-2 Eosinophils 6 % 0-4 HCT 44.8 % 42.0-52.0 HGB 14.8 g/dL 14.0-18.0 Immature Granulocytes 0.2 % 0.0-1.0 Lymphocytes 25 % 20-46 MCH 28.4 pg 27.0-32.0 MCHC 33.0 g/dL 32.0-36.0 MCV 85.8 fL 82.0-99.0 Monocytes 7 % 4-11 MPV 9.9 fL 8.8-14.8 Neutrophils 61 % 51-75 Platelet Count 173 K/uL 150-400 RBC 5.22 10*6/uL 4.60-6.20 RDW 14.2 % 11.5-14.5 WBC 5.0 K/uL 4.8-10.8 CBC With Platelet and Differential - 07/26/17 08:38 Absolute Basophils 0.04 10*3/uL 0.00-0.20 Absolute Eosinophils 0.31 10*3/uL 0.00-0.50 Absolute Lymphocytes 1.24 10*3/uL 0.80-3.30 Absolute Monocytes 0.39 10*3/uL 0.30-1.00 Absolute Neutrophils 3.20 10*3/uL 1.90-7.00 Basophils 1 % 0-2 Eosinophils 6 % 0-4 HCT 47.9 % 42.0-52.0 HGB 15.5 g/dL 14.0-18.0 Immature Granulocytes 0.4 % 0.0-1.0 Lymphocytes 24 % 20-46 MCH 28.0 pg 27.0-32.0 MCHC 32.4 g/dL 32.0-36.0 MCV 86.5 fL 82.0-99.0 Monocytes 8 % 4-11 MPV 9.6 fL 8.8-14.8 Neutrophils 62 % 51-75 Platelet Count 228 K/uL 150-400 RBC 5.54 10*6/uL 4.60-6.20 RDW 14.2 % 11.5-14.5 WBC 5.2 K/uL 4.8-10.8 Comprehensive Metabolic Panel (CMP) - 07/26/17 08:38 Albumin 4.4 g/dL 3.5-5.0 Alkaline Phosphatase 75 U/L 40-150 ALT (SGPT) 22 U/L 0-55 Anion Gap 9 mEq/L 3-20 AST (SGOT) 18 U/L 5-34 Bilirubin Total 0.8 mg/dL 0.2-1.2 BUN 15 mg/dL 9-21 Calcium 9.3 mg/dL 8.4-10.2 Chloride 101 mEq/L 99-111 CO2 27 mEq/L 23-31 Creatinine 1.14 mg/dL 0.72-1.25 Globulin 3.3 g/dL 1.8-4.0 Glucose 99 mg/dL 70-99 Potassium 4.6 mEq/L 3.5-5.2 Protein 7.7 g/dL 6.1-7.7 Sodium 137 mEq/L 135-144 eGFR - 07/26/17 08:38 eGFR >60 mL/min >60 RPR - 07/26/17 08:38 RPR Non-reactive NA Encounters ACCT No. Visit Discharge Status Pt. Type Provider Facility Loc./Unit Complaint Date/Time [id number] 01/16/2014 01/16/2014 CLS Outpatie 13:29:00 23:59:59 nt [id number] 12/09/2013 12/09/2013 CLS Outpatie 12:57:00 23:59:59 nt [id number] 11/24/2013 11/24/2013 CLS Outpatie 15:11:00 23:59:59 nt [id number] 07/26/2017 07/26/2017 DIS Outpatie Teck, Via [facility] New lab [id number] 08:32:00 23:59:00 nt Erich Deanna Lab [facility] [id number] 07/23/2017 07/23/2017 DIS Outpatie Teck, Via [facility] TB skin test 6717 14:00:00 23:59:00 nt Erich Deanna [facility] [id number] 07/19/2017 07/19/2017 DIS Outpatie Teck, Via [facility] New FM well man exam 5509 08:06:00 23:59:00 nt Erich Deanna [facility] [id number] 05/23/2017 05/23/2017 DIS Outpatie Teck, Via [facility] New FM 2 wk left 5th [id number] 13:22:00 23:59:00 nt Erich Rusti metatarsal fx Clinic [id number] 05/09/2017 05/09/2017 DIS Outpatie Teck, Via [facility] New FM LEFT FOOT 6219 13:10:00 23:59:00 nt Erich Rusti PAIN Clinic [id number] 04/05/2017 04/05/2017 DIS Outpatie Teck, Via [facility] New FM 1 mo muscle 4689 10:07:00 23:59:00 nt Erich Huerta spasms Clinic recheck [id number] 03/05/2017 03/05/2017 DIS Outpatie Teck, Via [facility] New FM 1 month 9947 09:32:00 23:59:00 nt Erich Huerta muscle spasms Clinic [id number] 01/23/2017 01/23/2017 DIS Outpatie Teck, Via [facility] New FM 2 week follow 1033 09:57:00 23:59:00 nt Erich Huerta up from Clinic 3.14.17 [id number] 01/09/2017 01/09/2017 DIS Outpatie Teck, Via [facility] New FM 3 month 9581 14:21:00 23:59:00 nt Erich Huerta chronic back Clinic pain and GERD [id number] 12/01/2016 12/01/2016 DIS Outpatie Teck, Via [facility] New FM TCPA RAYA RT 1445 13:53:00 23:59:00 nt Erich Huerta HAND Clinic [id number] 10/31/2016 10/31/2016 DIS Outpatie Teck, Via [facility] New FM fell at N. 1058 13:52:00 23:59:00 nt Erich Huerta [facility] hurt left ribs, and bruised knee and [id number] 10/11/2016 10/11/2016 DIS Outpatie Teck, Via [facility] New FM 1 month med 1564 14:41:00 23:59:00 nt Erich Huerta check back Clinic pain [id number] 09/11/2016 09/11/2016 DIS Outpatie Teck, Via [facility] New FM med check and 8091 14:18:00 23:59:00 nt Erich Huerta FLU INJ Clinic [id number] 06/09/2016 06/09/2016 DIS Outpatie Teck, Via [facility] New FM TCPA follow 6507 09:56:00 23:59:00 nt Erich Huerta up labs Clinic [id number] 03/14/2016 03/14/2016 DIS Outpatie Teck, Via [facility] New FM constipation 6149 13:55:00 23:59:00 nt Erich Rusti issues Clinic [id number] 03/08/2016 03/08/2016 DIS Outpatie Teck, Via [facility] New FM 6 mth med 5053 09:10:00 23:59:00 nt Erich Huerta check Clinic [id number] 02/09/2016 02/09/2016 DIS Outpatie Teck, Via [facility] New FM B12 INJECTION 0841 09:09:00 23:59:00 [facility] [id number] 01/05/2016 01/05/2016 CLS Outpatie Teck, Via [facility] New FM B12 SHOT 0455 09:06:00 23:59:59 nt Erich [facility] [id number] 12/07/2015 12/07/2015 DIS Outpatie Teck, Via [facility] New FM B12 SHOT 6426 08:58:00 23:59:00 Erich Huerta [facility] [id number] 11/02/2015 11/02/2015 CLS Outpatie Teck, Via [facility] New FM 1MTH RCK GERD 9448 09:09:00 23:59:[address] [facility] 12.16 [facility] [id number] 11/02/2015 11/02/2015 CLS Outpatie Teck, Via [facility] New FM B12 SHOT 0314 09:06:00 23:59:59 nt Erich [facility] [id number] 10/13/2015 10/13/2015 CLS Outpatie Teck, Via [facility] New FM ABD PAIN 3514 09:07:00 23:59:59 nt [facility] SPASM LIKE PAIN [id number] 09/28/2015 09/28/2015 DIS Outpatie Teck, Via [facility] New FM B12 SHOT [id number] 09:00:00 23:59:00 nt Erich Deanna Clinic [id number] 09/08/2015 09/08/2015 DIS Outpatie Teck, Via [facility] 6th b12 shot 6151 13:09:00 23:59:00 nt Erich Deanna Clinic [id number] 08/25/2015 08/25/2015 DIS Outpatie Teck, Via [facility] 6th b12 shot 5038 08:43:00 23:59:00 nt Erich Deanna Clinic [id number] 07/26/2015 07/26/2015 DIS Outpatie Teck, Via [facility] 5th b12 shot 5024 08:55:00 23:59:00 nt Erich Deanna Clinic [id number] 07/01/2015 07/01/2015 DIS Outpatie Garcia, Via [facility] Mur persistent 5979 14:27:00 23:59:00 nt Lelo Huerta Gasto dyshagia [facility] [id number] 06/25/2015 06/25/2015 DIS Outpatie Teck, Via [facility] 4th b12 shot 6124 09:04:00 23:59:00 nt Erich Deanna Clinic [id number] 06/23/2015 06/23/2015 DIS Outpatie Teck, Via [facility] suture 6258 08:36:00 23:59:00 nt Erich Deanna removal Clinic [id number] 06/18/2015 06/18/2015 DIS Outpatie Teck, Via [facility] RE EXC AND B 6186 08:24:00 23:59:00 nt Erich Deanna 12 SHOT Clinic [id number] 06/18/2015 06/18/2015 DIS Outpatie Teck, Via [facility] b12 shot 6105 08:22:00 23:59:00 nt Erich Deanna Clinic [id number] 06/11/2015 06/11/2015 DIS Outpatie Teck, Via [facility] B12 SHOT 9010 08:34:00 23:59:00 nt Erich Deanna Clinic [id number] 06/04/2015 06/04/2015 DIS Outpatie Teck, Via [facility] hospital F/U, 8971 08:28:00 23:59:00 nt [facility] Vit B12 Clinic inject [id number] 05/19/2015 05/19/2015 DIS Outpatie Teck, Via [facility] New FM abd labs 2466 08:57:00 23:59:00 nt Erich Rusti Clinic [id number] 05/18/2015 05/18/2015 DIS Outpatie Teck, Via [facility] New FM ISSUES WITH 0027 12:59:00 23:59:00 nt Erich Huerta DIGESTION Clinic UPSET STOMACH ACID REFLUX [id number] 11/03/2014 11/03/2014 DIS Outpatie Stallbaume Via [facility] FC Back pain/ 4699 12:58:00 23:59:00 nt [facility] abnormal MRI [facility] [id number] 10/01/2014 10/01/2014 DIS Outpatie Teck, Via [facility] New FM review 2339 12:32:00 23:59:00 nt Erich Huerta results of Clinic MRI [id number] 09/21/2014 09/21/2014 DIS Outpatie Teck, Via [facility] New FM MUSCLE SPASMS 2056 09:57:00 23:59:00 nt Erich Deanna Clinic [id number] 01/22/2015 Document 6739 08:58:00 Registra tion [id number] 12/14/2014 Document [id number] 12:58:00 Registra tion [id number] 01/05/2017 03/01/2017 DIS Outpatie TECK DO, 0219 00:00:00 00:00:00 vincent BANNER [id number] 12/21/2016 01/04/2017 DIS Inash Mendez SRG [id number] 16:46:00 17:25:00 katheryn SHANKAR [facility] [id number] 12/18/2016 12/20/2016 DIS Inash KNOTT MD, Andrea IRU 5792 14:04:00 12:10:00 katheryn MONTELONGO [facility] [id number] 12/15/2016 12/18/2016 DIS Inash Mendez MED 9746 00:55:00 14:00:00 [id number] 12/13/2016 12/14/2016 DIS Emergenc Andrea GUEVARA DO ED 7195 21:22:00 08:05:00 y TONE [facility] [id number] 12/13/2016 12/13/2016 DIS Emergenc Andrea KC DO ED 5991 11:30:00 14:34:00 y KISHAN [facility] [id number] 10/30/2016 10/30/2016 DIS EmergeAndrea Bird MD, ED 2261 12:54:00 15:33:00 y [facility] [id number] 03/07/2018 Document 1108 10:30:00 Registra tion [id number] 01/05/2017 Document [id number] 21:01:00 Registra tion [id number] 01/04/2017 ACT R SUKHI DO, Andrea HH 0119 15:49:00 [facility] [id number] 05/03/2016 05/03/2016 CLS Reymundo Jacob, 11:22:09 23:59:59 nt Mike S [id number] 05/19/2015 05/21/2015 DIS Inash De Oliveira MD, Via [facility] F7N symptomatic 4728 11:23:00 17:00:00 t [facility] weight Hospital loss on [place] [id number]/20/2017 Document [id number] 05:18:32 Registra tion 2017071407/14/2017 Document [id number] 05:18:22 Registra tion 2017061906/19/2017 Document [id number] 05:18:34 Registra tion 2017060806/08/2017 Document [id number] 05:18:23 Registra tion 2017051005/10/2017 Document [id number] 05:16:40 Registra tion 2017040604/06/2017 Document [id number] 05:23:46 Registra tion 2017033003/30/2017 Document [id number] 05:16:12 Registra tion 2017030703/07/2017 Document [id number] 05:16:27 Registra tion 2017030603/06/2017 Document [id number] 05:17:04 Registra tion 2017012401/24/2017 Document [id number] 05:17:02 Registra tion 2016120212/02/2016 Document [id number] 05:16:49 Registra tion 2016110111/01/2016 Document [id number] 05:18:01 Registra tion 2016101210/12/2016 Document [id number] 05:16:07 Registra tion 2016091209/12/2016 Document [id number] 05:17:25 Registra tion 2016070707/07/2016 Document [id number] 05:18:20 Registra tion 2016030903/09/2016 Document [id number] 05:17:05 Registra tion [id number] 02/17/2016 Document [id number] 05:17:45 Registra tion [id number] 02/16/2016 Document [id number] 12:31:00 Registra tion [id number] 02/10/2016 Document [id number] 05:18:16 Registra tion [id number] 01/06/2016 Document [id number] 05:18:27 Registra tion [id number] 12/08/2015 Document [id number] 05:18:08 Registra tion [id number] 11/03/2015 Document [id number] 05:17:09 Registra tion [id number] 10/16/2015 Document [id number] 05:17:13 Registra tion [id number] 09/29/2015 Document [id number] 05:16:51 Registra tion [id number] 08/26/2015 Document [id number] 05:16:06 Registra tion [id number] 08/18/2015 Document [id number] 15:06:02 Registra tion 2015081808/18/2015 Document [id number] 14:28:48 Registra tion 2015081808/18/2015 Document [id number] 14:17:38 Registra tion 2015081808/18/2015 Document [id number] 14:07:51 Registra tion 2015081808/18/2015 Document [id number] 13:45:58 Registra tion 2015081808/18/2015 Document [id number] 13:38:19 Registra tion 2015081808/18/2015 Document [id number] 13:30:06 Registra tion 2015081808/18/2015 Document [id number] 13:22:02 Registra tion 2015081808/18/2015 Document [id number] 13:15:29 Registra tion [id number] 08/18/2015 Document [id number] 13:15:28 Registra tion 2015081808/18/2015 Document [id number] 11:17:19 Registra tion [id number] 08/18/2015 Document [id number] 10:57:07 Registra tion [id number] 08/18/2015 Document [id number] 10:28:07 Registra tion [id number] 08/18/2015 Document [id number] 10:17:38 Registra tion
[2018-03-07] MEDS ORDERED: SALINE FLUSH 10ml SYRINGE ONE (11:34)
[2018-03-07] MEDS ORDERED: IOHEXOL 350mg/ml 75ml INJECTION ONE ×2 (11:34→11:41)
--- NOTE | 2018-03-07 12:06 | CT Scan Report ---
Indication: chest pain d-dimer 3.6K rule out pulmonary embolus PROCEDURE: CT angio pulm emboli: Encounter: Initial Comparison: None Technique: Axial CT pulmonary angiographic phase images were performed through the chest after the administration of intravenous contrast. Coronal and Sagittal MIP reconstructed images were created and reviewed. Automated Exposure Control and Iterative Reconstruction dose reducing techniques were utilized. Contrast: Omnipaque 350 146 mL Findings: Pulmonary arteries: The first contrast injection was nondiagnostic. Repeat injection was performed which shows extensive bilateral pulmonary emboli in the interlobar, segmental and subsegmental pulmonary artery branches bilaterally. Other findings: Lungs are hypoinflated with areas of atelectasis in the right upper lobe. No pleural effusion or pneumothorax. The central airways are patent. No axillary or mediastinal adenopathy. Heart is enlarged with prominence of the right ventricle and straightening of the interventricular septum. No evidence of contrast reflux into the hepatic veins however. Small anterior pericardial effusion. The upper abdomen shows no acute findings. Bone windows are negative for acute process. Impression: Large amount of bilateral pulmonary emboli. Possible early or developing right heart strain. Findings were discussed with Dr. Aguero at 1200 on March 07, 2018 .
--- NOTE | 2018-03-07 12:07 | XRay Report ---
INDICATION: chest pain shortness of air PROCEDURE: CHEST 2-VIEWS UPRIGHT (PA & LAT) Encounter: Initial COMPARISON: CTA chest from today FINDINGS: Right upper lobe atelectasis better seen by CT. No lobar pneumonia, pleural effusion or pneumothorax. Cardiac silhouette is mildly enlarged. The mediastinal contours and pulmonary vascularity appear stable. Impression: No focal pneumonia or congestive failure. .
[2018-03-07] MEDS ORDERED: ENOXAPARIN 100 MG/ML INJECTION SQ ONE (12:40)
[2018-03-07] MEDS ORDERED: BACLOFEN 10 MG TABLET PO PRN (12:51)
[2018-03-07] MEDS ORDERED: ONDANSETRON ODT 4 MG TABLET PO PRN (12:51)
--- NOTE | 2018-03-07 13:46 | History & Physical Report ---
History of Present Illness Date: 03/07/18 Chief complaint: CP, SOA HPI: Patient is a 47 yo male who came to the ED today at the suggestion of his case planner due to pt appearing very SOA. Pt states he has had CP and SOA for about a month. States last month while walking he collapsed. He was able to get up but noted he had CP which eventually improved some, but ever since that episode he has noted SOA and CP. Pt is a poor historian due to cognitive impairment. 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 He tells me he saw Dr. Chester 2 days ago and had testing done but doesn't remember what testing. In the ED he had a + DDimer leading to CTA chest which was positive for large amt of b/l pulmonary emboli. He was was hypoxic but was tachypneic. Review of Systems All systems PM: 10-point ROS was reviewed, no additional remarkable complaints except (CP, SOA, cough, blind R eye) Past Medical History Medical History Updates: Schizoaffective d/o. Cognitive impairment d/t h/o TBI or CVA. HTN. 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 - "[facility]" Medications Home Medications Medication Instructions Recorded Confirmed Type Amlodipine Besylate [Norvasc] 5 mg PO DAILY 30 Days #30 tab 01/04/17 03/07/18 Rx Baclofen [Lioresal] 10 mg PO BID PRN 03/07/18 03/07/18 History Benztropine [Cogentin] 1 mg PO DAILY 03/07/18 03/07/18 History Metoprolol Succinate (XL) [Toprol 50 mg PO DAILY 03/07/18 03/07/18 History Xl] Omeprazole [Prilosec] 20 mg PO BID 03/07/18 03/07/18 History risperiDONE [Risperidone] 1 mg PO BID 03/07/18 03/07/18 History Allergies Allergy/AdvReac Type Severity Reaction Status Date / Time No Known Drug Allergies Allergy Unknown Verified 03/07/18 10:58 Exam Vital Signs: Temperature 98.5 F 03/07/18 13:03 Pulse Rate 82 03/07/18 13:03 Respiratory Rate 16 03/07/18 13:03 Blood Pressure 123/67 03/07/18 13:03 Pulse Oximetry 97 03/07/18 13:03 - Constitutional Present: no acute distress, well nourished, well developed - Routine HEENT Exam Head: Present: normocephalic, atraumatic ENT: Present: mucous membranes moist, oropharynx clear. Absent: dentition normal (poor dentition) Comments: R eye deviates to R. Prosthesis. EOMI in L eye - Routine Neck Exam Present: supple. Absent: lymphadenopathy, thyromegaly - Routine Respiratory Exam Present: CTA bilaterally. Absent: wheezes - Routine Cardiovascular Exam Present: RRR, no murmur - Routine Abdominal Exam Present: soft, normoactive bowel sounds. Absent: tenderness, distended - Routine Extremities Exam Present: edema (edema to the entire LLE with pitting edema in the foot. R leg without obvious swelling compared to L. ), normal capillary refill - Routine Skin Exam Present: dry, warm - Routine Neurological Exam Present: alert, oriented X3, moving all extremities. Absent: normal speech ( speech is slow) Patient is slow to answer questions. Cognitive impairment noted upon interviewing pt. - Routine Psychiatric Exam Present: normal affect, cooperative Results - Labs CBC & Chem 7: 03/07/18 11:04 03/07/18 11:04 Labs: Laboratory Tests 03/07/18 11:04 Troponin I < 0.012 NT-Pro-B Natriuret Pep 152 Laboratory Tests 03/07/18 11:04 D-Dimer 3595 H - Imaging and Cardiology Chest x-ray Additional comments: Date of Exam: 03/07/18 INDICATION: chest pain shortness of air PROCEDURE: CHEST 2-VIEWS UPRIGHT (PA & LAT) FINDINGS: Right upper lobe atelectasis better seen by CT. No lobar pneumonia, pleural effusion or pneumothorax. Cardiac silhouette is mildly enlarged. The mediastinal contours and pulmonary vascularity appear stable. Impression: No focal pneumonia or congestive failure. CT scan - chest Additional comments: Date of Exam: 03/07/18 Indication: chest pain d-dimer 3.6K rule out pulmonary embolus PROCEDURE: CT angio pulm emboli: Pulmonary arteries: The first contrast injection was nondiagnostic. Repeat injection was performed which shows extensive bilateral pulmonary emboli in the interlobar, segmental and subsegmental pulmonary artery branches bilaterally. Other findings: Lungs are hypoinflated with areas of atelectasis in the right upper lobe. No pleural effusion or pneumothorax. The central airways are patent. No axillary or mediastinal adenopathy. Heart is enlarged with prominence of the right ventricle and straightening of the interventricular septum. No evidence of contrast reflux into the hepatic veins however. Small anterior pericardial effusion. The upper abdomen shows no acute findings. Bone windows are negative for acute process. Impression: Large amount of bilateral pulmonary emboli. Possible early or developing right heart strain. Assessment and Plan Assessment and Plan: Assessment Multiple b/l pulmonary emboli with possible R heart strain Schizoaffective d/o Cognitive impairment d/t h/o TBI or CVA HTN GERD Thrombocytopenia - POA (121) Hypokalemia - POA (3.5) Morbid obesity (BMI 43.1) Plan Admit, OBS Telemetry and continuous pulse ox to monitor for arrhythmia and O2 sats Echocardiogram to evaluate for heart strain. Defer venous doppler of LE's as finding of DVT will not change tx plan. Clinically he has a DVT of L leg based on significant swelling and + PE's. Given therapeutic dose of Lovenox on admission while AUDELIA was contacting insurance to determine coverage for Xarelto. Tomorrow start Xarelto 15mg BID x 21 d then 20mg qd. His cost is <$3. for first 21 days then paid by insurance thereafter. Defer decision to w-u pt for PE to Dr. Chester on OP visit. CBC and BMP in am to follow blood counts and electrolytes. FULL CODE Care to return to Dr. Chester on dismissal. Patient gives permission to discuss case with "Mike" from [facility] if needed. DVT Prophylaxis: Lovenox, Xarelto Resuscitation Status: Full Code - Physician Narrative Physician: Aquilino Wren MD Narrative: Date: 03/07/18 Time: 1914 Have independently interviewed and examined pt. Chart reviewed. Case discussed with ED physician, AUDELIA, and my PA. Care plan developed with my supervision; agree with above. Presents to ED at urging of his case planner secondary to increasing problems with breathing more SOA. Report feeling SOA and having chest pain for the last month. Not much cough or congestion. Winded easier. Harder to catch breath. Not pain to chest worse with breathing. No nausea or ab pain. Evaluated in ED. D- Dimer elevated and subsequent CTA showing evidence for bilateral PE. Remarkably , patient maintaining saturations well. Dr Chester notified from ED - thought Xarelto would be good choice for patient as not needing lab monitoring and frequent dose adjustments. Place in OBS status at [facility] to initiate treatment, but also monitor his cardiopulmonary status secondary to clot burden to lungs. Lungs: decrease breath sounds bilaterally. Shallow breathing. CV: regular AB: soft obese nt/nd MSE: awake alert Plan: OBS admission. Lovenox 200mg give x1 in ED. CM check with rosenberg of Xarelto and it is reasonable for patient. Will start Xarelto 15mg BIDWM tomorrow. Check ECHO to evaluate for right heart strain - suspect will be technically difficult due to patient's body habitus. Tele and continuous pulse oxy. Recheck BMP in am secondary to IV contrast use. Will repeat CBC in am due to anticoagulants. Continue home medications. Full code per his requests. Care to return to Dr Chester at time of discharger from [facility]. Hospital Course Summary Disclaimer: The visit summary below is not to be considered part of the above Progress Note. Hospital Course: 03/07/18 Admit, OBS Telemetry and continuous pulse ox to monitor for arrhythmia and O2 sats Echocardiogram to evaluate for heart strain Defer venous doppler of LE's as finding of DVT will not change tx plan. Clinically he has a DVT of L leg based on significant swelling and + PE's. Given therapeutic dose of Lovenox on admission while CM was contacting insurance to determine coverage for Xarelto. Tomorrow start Xarelto 15mg BID x 21 d then 20mg qd. His cost is <$3. for first 21 days then paid by insurance thereafter. Defer decision to w-u pt for PE to Dr. Chester on OP visit. FULL CODE Care to return to Dr. Chester on dismissal. Patient gives permission to discuss case with "Mike" from [facility] if needed.
--- NOTE | 2018-03-07 21:05 | Echocardiogram ---
DATE OF PROCEDURE March 07, 2018 This is a two-dimensional echo with spectral Doppler, color-flow and M-mode. It was obtained in a patient with bilateral PE. Left atrial dimension is normal. Left ventricular end-diastolic dimension is normal. Left ventricular wall thickness is normal. LV systolic function is normal with ejection fraction of 65%. Right atrium is normal. Right ventricle is normal. Aortic root dimension is normal. Mitral valve is morphologically normal with no stenosis or insufficiency. Aortic valve appears to be normal. Trace tricuspid valve shows mild tricuspid regurgitation with normal estimated pulmonary artery systolic pressure of 26. Pulmonary valve shows mild pulmonary insufficiency. There is no pericardial effusion. IMPRESSION 1. Normal LV systolic function with ejection fraction of 65%. 2. Mild tricuspid regurgitation with normal estimated pulmonary artery systolic pressure of 26. 3. Mild pulmonary insufficiency. MTDD
[2018-03-07] MEDS: OMEPRAZOLE 20 MG CAPSULE PO SCH (21:22)
[2018-03-07] MEDS: RisperiDONE 1 MG TABLET PO SCH (21:22)
[2018-03-08 07:39] VITALS: BMI 43.0
[2018-03-08] MEDS ORDERED: BENZTROPINE 1 MG TABLET PO SCH (09:00)
[2018-03-08] MEDS ORDERED: RIVAROXABAN 15 MG TABLET PO SCH (09:00)
[2018-03-08] MEDS ORDERED: AMLODIPINE 5 MG TABLET PO SCH (09:00)
[2018-03-08 10:07] VITALS: BP 129/73; PULSE 87; RESP 18; TEMP 97.9
[2018-03-08] MEDS: OMEPRAZOLE 20 MG CAPSULE PO SCH (10:10)
[2018-03-08] MEDS: RisperiDONE 1 MG TABLET PO SCH (10:10)
--- NOTE | 2018-03-08 11:38 | Progress Note ---
- Date 03/08/18 Subjective: F/U: Multiple b/l pulmonary emboli with possible R heart strain Doing well this morning. Feels breathing stable-not feeling overtly SOA or congested. Minimal pain with breathing, but manageable. Denies pain to left leg. Reports feeling okay when up walking. No ab pain or nausea; eating well. No f/c. Feel up to going home. Objective Vital signs: Temperature 97.9 F 03/08/18 09:00 Pulse Rate 87 03/08/18 09:00 Respiratory Rate 18 03/08/18 09:00 Blood Pressure 129/73 03/08/18 09:00 Pulse Oximetry 95 03/08/18 09:00 Height/Weight/BMI: Height 1.75 m Weight 125.2 kg Body Mass Index 43.0 - Constitutional Present: moderate distress, well nourished, morbidly obese, cooperative. Absent : combative, agitated, somnolent - Routine HEENT Exam Head: Present: normocephalic, atraumatic Eye: Absent: scleral injection ENT: Present: mucous membranes moist - Routine Respiratory Exam Present: decreased breath sounds. Absent: rales, respiratory distress, rhonchi , stridor, wheezes, crackles - Routine Cardiovascular Exam Present: RRR, no murmur - Routine Abdominal Exam Present: soft, normoactive bowel sounds, non distended, non tender. Absent: guarding - Routine Extremities Exam Present: edema (LLE with increased edema compaired to right). Absent: cyanosis , clubbing - Routine Musculoskeletal Exam Musculoskeletal: Present: no clubbing or cyanosis - Routine Skin Exam Present: dry, warm - Routine Neurological Exam Present: alert, CN II-XII intact, moving all extremities, hearing grossly intact , normal speech. Absent: motor deficit, altered mental status - Routine Psychiatric Exam Present: normal affect, cooperative. Absent: anxious, agitated Results - Labs CBC & Chem 7: 03/08/18 03:56 03/08/18 03:56 Assessment and Plan Assessment and Plan: Assessment Multiple b/l pulmonary emboli with possible R heart strain Left lower extremity edema - suspect DVT Schizoaffective d/o Cognitive impairment d/t h/o TBI or CVA HTN GERD Anemia - chronic; stable. Thrombocytopenia - POA (121) - resolved Hypokalemia - POA (3.5) - resolved Hyperglycemia Morbid obesity (BMI 43.1) Plan Clinically doing well. Continues to maintain normal saturations on RA. Not having significant pain with breathing or increased work of breathing. Creatinine stable at 0.9 following IV contrast yesterday. Potassium improved to 3.8. Hemoglobin 12.6 with platelets 143. Will continue with Xarelto for anticoagulation. Will need 15mg BID with meals x 21 days, then change to 20mg with supper. Discussed with patient about signs & symptoms of bleeding. Advised to be adherent with medication. Will need continued following with Dr Chester. Can discharge to home in stable condition. F/U with Dr Chester in 1 week - would recommend CBC at that time secondary to Xarelto use & anemia. See orders for details. Case discussed with CM. Time spent with care and discharge greater than 30 minutes. DVT Prophylaxis: Xarelto Resuscitation Status: Full Code - Physician Narrative Physician: Aquilino Wren MD Narrative: Date: 03/08/18 Time: 1135 Hospital Course Summary Disclaimer: The visit summary below is not to be considered part of the above Progress Note. Hospital Course: 03/07/18 Admit, OBS Telemetry and continuous pulse ox to monitor for arrhythmia and O2 sats. Echocardiogram to evaluate for heart strain. Defer venous Doppler of LE's as finding of DVT will not change tx plan. Clinically he has a DVT of L leg based on significant swelling and + PE's. Given therapeutic dose of Lovenox on admission while CM was contacting insurance to determine coverage for Xarelto. Tomorrow start Xarelto 15mg BID x 21 d then 20mg qd. His cost is <$3. for first 21 days then paid by insurance thereafter. Defer decision to w-u pt for PE to Dr. Chester on OP visit. FULL CODE Care to return to Dr. Chester on dismissal. Patient gives permission to discuss case with "Mike" from [facility] if needed. 03/08/18 Clinically doing well. Continues to maintain normal saturations on RA. Not having significant pain with breathing or increased work of breathing. Creatinine stable at 0.9 following IV contrast yesterday. Potassium improved to 3.8. Hemoglobin 12.6 with platelets 143. Will continue with Xarelto for anticoagulation. Will need 15mg BID with meals x 21 days, then change to 20mg with supper. Discussed with patient about signs & symptoms of bleeding. Advised to be adherent with medication. Will need continued following with Dr Chester. Can discharge to home in stable condition. F/U with Dr Chester in 1 week - would recommend CBC at that time secondary to Xarelto use & anemia. See orders for details.
[2018-03-08] MEDS ORDERED: ENOXAPARIN 100 MG/ML INJECTION SQ SCH (12:27)
[2018-03-08 15:16] VITALS: O2SAT 94
--- NOTE | 2018-03-08 20:55 | Discharge Summary ---
Discharge Information Date of admission: 03/07/18 12:31 Anticipated date of discharge: 03/08/18 Attending Physician: Aquilino Wren MD Primary care physician: Erich Chester DO - Discharge Diagnosis (1) Pulmonary embolism, bilateral Status: Acute Discharge diagnosis Multiple bilateral pulmonary emboli with possible R heart strain Associated conditions and complications Left lower extremity edema - suspect DVT Schizoaffective d/o Cognitive impairment d/t h/o TBI or CVA HTN GERD Anemia - chronic; stable. Thrombocytopenia - POA (121) - resolved Hypokalemia - POA (3.5) - resolved Hyperglycemia Morbid obesity (BMI 43.1) - Procedures Procedures: Date of Exam: 03/07/18 Type of Exam: US ECHO Doppler complete This is a two-dimensional echo with spectral Doppler, color-flow and M-mode. It was obtained in a patient with bilateral PE. Left atrial dimension is normal. Left ventricular end-diastolic dimension is normal. Left ventricular wall thickness is normal. LV systolic function is normal with ejection fraction of 65%. Right atrium is normal. Right ventricle is normal. Aortic root dimension is normal. Mitral valve is morphologically normal with no stenosis or insufficiency. Aortic valve appears to be normal. Trace tricuspid valve shows mild tricuspid regurgitation with normal estimated pulmonary artery systolic pressure of 26. Pulmonary valve shows mild pulmonary insufficiency. There is no pericardial effusion. IMPRESSION 1. Normal LV systolic function with ejection fraction of 65%. 2. Mild tricuspid regurgitation with normal estimated pulmonary artery systolic pressure of 26. 3. Mild pulmonary insufficiency. - Laboratory Labs: Admit Lab 03/07/18 11:04 WBC 7.0 Hgb 13.2 L Hct 39.4 L MCV 92.1 Plt Count 121 L Neut % (Auto) 74.0 H Lymph % (Auto) 14.7 L Randolph % (Auto) 8.5 Eos % (Auto) 2.2 Baso % (Auto) 0.3 Admit Lab 03/07/18 11:04 D-Dimer 3595 H Admit Labs 03/07/18 11:04 Sodium 144 Potassium 3.5 L Chloride 107 Carbon Dioxide 25 Anion Gap 12 BUN 7.0 L Creatinine 0.8 GFR Calculation 105 BUN/Creatinine Ratio 9 Glucose 170 H Calculated Osmolality 279 Calcium 8.6 Total Bilirubin 1.00 AST 29 ALT 32 Alkaline Phosphatase 63 Troponin I < 0.012 NT-Pro-B Natriuret Pep 152 Total Protein 7.2 Albumin 4.1 Globulin 3.1 Albumin/Globulin Ratio 1.3 03/08/18 03:56 03/08/18 03:56 - Radiology Radiology: Date of Exam: 03/07/18 Type of Exam: XR chest 2V FINDINGS: Right upper lobe atelectasis better seen by CT. No lobar pneumonia, pleural effusion or pneumothorax. Cardiac silhouette is mildly enlarged. The mediastinal contours and pulmonary vascularity appear stable. Impression: No focal pneumonia or congestive failure. Date of Exam: 03/07/18 Type of Exam: CT angio pulmonary emboli Findings: Pulmonary arteries: The first contrast injection was nondiagnostic. Repeat injection was performed which shows extensive bilateral pulmonary emboli in the interlobar, segmental and subsegmental pulmonary artery branches bilaterally. Other findings: Lungs are hypoinflated with areas of atelectasis in the right upper lobe. No pleural effusion or pneumothorax. The central airways are patent. No axillary or mediastinal adenopathy. Heart is enlarged with prominence of the right ventricle and straightening of the interventricular septum. No evidence of contrast reflux into the hepatic veins however. Small anterior pericardial effusion. The upper abdomen shows no acute findings. Bone windows are negative for acute process. Impression: Large amount of bilateral pulmonary emboli. Possible early or developing right heart strain. History of Present Illness HPI: Patient is a 47 yo male who came to the ED today at the suggestion of his clinical case manager due to pt appearing very SOA. Pt states he has had CP and SOA for about a month. States last month while walking he collapsed. He was able to get up but noted he had CP which eventually improved some, but ever since that episode he has noted SOA and CP. Pt is a poor historian due to cognitive impairment. 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 He tells me he saw Dr. Chester 2 days ago and had testing done but doesn't remember what testing. In the ED he had a + DDimer leading to CTA chest which was positive for large amt of b/l pulmonary emboli. He was was hypoxic but was tachypneic. For complete details of the H&P refer to that document. Objective Vital signs: Temperature 97.9 F 03/08/18 09:00 Pulse Rate 87 03/08/18 09:00 Respiratory Rate 18 03/08/18 09:00 Blood Pressure 129/73 03/08/18 09:00 Pulse Oximetry 94 03/08/18 15:15 Height/Weight/BMI: Height 1.75 m Weight 125.2 kg Body Mass Index 43.0 Hospital Course This is a general summary of the patient's hospital course. For more details refer to the complete medical record. Hospital course: 03/07/18 Admit, OBS Telemetry and continuous pulse ox to monitor for arrhythmia and O2 sats. Echocardiogram to evaluate for heart strain. Defer venous Doppler of LE's as finding of DVT will not change tx plan. Clinically he has a DVT of L leg based on significant swelling and + PE's. Given therapeutic dose of Lovenox on admission while CM was contacting insurance to determine coverage for Xarelto. Tomorrow start Xarelto 15mg BID x 21 d then 20mg qd. His cost is <$3. for first 21 days then paid by insurance thereafter. Defer decision to w-u pt for PE to Dr. Chester on OP visit. FULL CODE Care to return to Dr. Chester on dismissal. Patient gives permission to discuss case with "Mike" from [facility] if needed. 03/08/18 Clinically doing well. Continues to maintain normal saturations on RA. Not having significant pain with breathing or increased work of breathing. Creatinine stable at 0.9 following IV contrast yesterday. Potassium improved to 3.8. Hemoglobin 12.6 with platelets 143. Will continue with Xarelto for anticoagulation. Will need 15mg BID with meals x 21 days, then change to 20mg with supper. Discussed with patient about signs & symptoms of bleeding. Advised to be adherent with medication. Will need continued following with Dr Chester. Can discharge to home in stable condition. F/U with Dr Chester in 1 week - would recommend CBC at that time secondary to Xarelto use & anemia. See orders for details. Time spent with patient: discharge greater than 30 minutes Resuscitation Status: Full Code Discharge Plan - Discharge Disposition Discharge Date: 03/08/18 Disposition: 01 Discharged Home, Self-Care *Condition: Stable Reason For Visit (Visit label in EMR): pulmonary emboli - Discharge Medications *Discharge Medications: New Rivaroxaban [Xarelto] 15 mg PO BIDWM #41 tab Rivaroxaban [Xarelto] 20 mg PO WS #30 tab Continue Amlodipine Besylate [Norvasc] 5 mg PO DAILY 30 Days #30 tab Baclofen [Lioresal] 10 mg PO BID PRN PRN Reason: Muscle Spasm Omeprazole [Prilosec] 20 mg PO BID Metoprolol Succinate (XL) [Toprol Xl] 50 mg PO DAILY risperiDONE [Risperidone] 1 mg PO BID Benztropine [Cogentin] 1 mg PO DAILY - Discharge Packet/Instructions *Diet: Low sodium *Activity: As tolerated *Pain Management/Treatment: Continue prior home pain medications *Wound Care: N/A Additional Instructions: Use Xarelto 15mg twice a day with meals (breakfast and evening meal) to treat your blood clot. It is very important to take this as prescribed and not miss doses or increase doses. When you have finished the 15mg coarse, you will need to start 20mg once a day with evening meal. It is important that you continue this medication as long as Dr Cehster instructs you to. Xarelto can increase your chance to bleed. Watch for sighs of bleeding from your gut --- throwing up blood, blood in the stool, passing dark/tarry/ sticky/black stools. If you see any of these things, contact Dr Chester promptly. *Expected Signs/Symptoms: Improvement of breathing and decreasing of left leg swelling. *Notify Physician if: Temp >100.4. Increasing pain in chest or pain with breathing. Increasing shortness or breath or labored breathing. Signs of bleeding from you gut. *During Business Hours Contact: Dr Chester *After Business Hours Contact: Call [facility] and have Dr Chester or his covering provide contacted. *Pending Lab/Results: No Pending Lab - Referrals/Follow Up *Referrals/Follow Up: Erich Chester DO [Primary Care Provider] - 03/15/18 1:30 pm (F/U for Bilateral PE - Started on Xarelto (15mg BID for 21 days, then 20mg daily with supper). Recommed rechecking CBC at you visit secondary to anemia. Blood sugars showing some elevation during stay - further evaluation as you deem fit. ) - Patient Handouts - Dismissal Complete Discharge Instructions are:: Complete Physician Narrative - Narrative Physician: Aquilino Wren MD Attestation Narrative: Date: 03/08/18 Time: 2050 I have independently interviewed & examined patient prior to discharge. See my progress note for details. Medically stable for discharge to home.
== END 2018-03-08 16:25 | disposition home or self-care (01) ==
LOC: MED 10:28 → ED 10:28 → MED 12:55
PROVIDERS: ADMIT Hospitalist; ATTEND Hospitalist